=== PATIENT | male | born 1940 | race Caucasian/White ===

== ENCOUNTER 2023-08-06 16:21 | Outpatient (AMB) | payer MEDICARE, OTHER, SELFPAY ==
[2023-08-06 16:24] VITALS: BP 124/84; PULSE 69; O2SAT 95; BMI 31.3
--- NOTE | 2023-08-06 16:24 | HO.NEPHOV_ITS ---
Vital Signs 08/06/23 16:24 Height 4 ft 11 in Weight 155 lb 2 oz BMI 31.3 BP 124/84 Blood Pressure Location Lt brachial Position Sitting Pulse 69 Pulse Source Pulse Oximeter Pulse Oximetry (%) 95 Oxygen Delivery Method Room Air Intake Visit Reasons: CKD/ Confirmed Licensed Club Manager Required: No Accompanied by: Daughter Allergies felodipine [From Plendil] Allergy (Verified 08/06/23 16:27) Unknown HPI Comments Details: I had the privilege of seeing Shaniqua in follow-up of her very mild CKD, hyperparathyroidism and hypertension. She had some symptoms following COVID-19 booster vaccination 4th dose which has been resolved now. She remains on calcitriol which is keeping her PTH at goal. She does not have any nephrolithiasis, flank pain, hematuria. Her serum calcium has been normal. She had relapse of polymyalgia rheumatica and has seen her strapper who has restarted prednisone. She had sestamibi scan in the past which showed parathyroid adenoma for which she had seen endocrine surgeon. She feels improved. Her blood pressure has been at goal. Does not have any chest pain, shortness of breath, paroxysmal nocturnal dyspnea, orthopnea, pedal edema or orthostatic symptoms. She was accompanied by her daughter in the office today. [facility], [facility] Medical History (Updated 08/06/23 @ 17:03 by Jesse Mercado MD) Type 2 diabetes mellitus Seasonal allergic rhinitis Polymyalgia rheumatica Paresthesia of hand Osteopenia Obesity Iron deficiency anemia Hypothyroidism Hiatal hernia GERD (gastroesophageal reflux disease) Essential (primary) hypertension Dyslipidemia Depressive disorder Chronic kidney disease Anemia Surgical History (Updated 08/06/23 @ 16:31 by Drea Hutson MA) History of cataract surgery History of cholecystectomy Family History (Updated 08/04/23 @ 16:46 by Drea Hutson MA) Mother Cancer Maternal Aunt Cancer Maternal Uncle Cancer Social History (Updated 08/06/23 @ 16:30 by Drea Hutson MA) Alcohol intake: never Patient Tobacco Use Status: Never used Tobacco Physical Exam Vital Signs: Last Vital Signs Pulse 69 08/06/23 16:24 BP 124/84 08/06/23 16:24 Pulse Ox 95 08/06/23 16:24 Oxygen Delivery Method Room Air 08/06/23 16:24 BMI result Body Mass Index 31.3 Const General: comfortable and no acute distress Orientation/consciousness: patient oriented x3 HEENT Head: Yes normocephalic Mouth: Normal oral and palatal mucosa present Eyes EOM: EOMs intact bilaterally Neck Neck: Yes supple Resp Auscultation: clear to auscultation bilaterally Cardio Jugular venous distension: no JVD Rate: regular rate GI Palpation (GI): Soft to palpation Auscultation: normal bowel sounds General: Yes no CVA tenderness Back/Spine/Pelvis Back: no CVA tenderness Skin General skin exam: no rashes or lesions noted Neuro General: patient oriented x3 and moves all extremities Extrem General: Yes no pedal edema Results Reviewed Nephrology Results: No Data to Display Assessment & Plan Assessment & Plan (1) Essential (primary) hypertension: Code(s): I10 - Essential (primary) hypertension Category: Medical (2) Parathyroid adenoma: Code(s): D35.1 - Benign neoplasm of parathyroid gland Category: Medical Plan Her serum creatinine has been stable, last reading being 1. Her blood pressure is at goal. She is tolerating angiotensin receptor wolfgang. Her serum p otassium has been normal. Her serum calcium is within normal limits. Her PTH has been at goal. Sestamibi scan done in the past showed parathyroid adenoma. She had seen endocrine surgeon as well. She maintains good hydration. She avoids nonsteroidal anti-inflammatories. I did not make any medication changes today. All her and her daughter's questions were answered. Follow-up appointment given for next year. Orders: Orders Blood Urea Nitrogen Today D35.1 - Benign neoplasm of parathyroid gland, I10 - Essential (primary) hypertension Parathyroid Hormone Intact Today D35.1 - Benign neoplasm of parathyroid gland, I10 - Essential (primary) hypertension Creatinine Today D35.1 - Benign neoplasm of parathyroid gland, I10 - Essential (primary) hypertension Electrolytes Today D35.1 - Benign neoplasm of parathyroid gland, I10 - Essential (primary) hypertension Calcium Today D35.1 - Benign neoplasm of parathyroid gland, I10 - Essential (primary) hypertension Coding Level of Care Code Est Pt Level 4 (83574) Diagnoses Essential (primary) hypertension I10 Parathyroid adenoma D35.1
== END 2023-08-06 17:06 | disposition home or self-care (01) ==
PROVIDERS: PCP Internal Medicine; Visit Provider Internal Medicine Nephrology
DX: I10 Essential (primary) hypertension (principal); D35.1 Benign neoplasm of parathyroid gland
CPT/HCPCS: 99214

== ENCOUNTER → 2023-08-06 16:21 | Outpatient (BNVA) | payer MEDICARE, OTHER, SELFPAY | PROVIDERS: PCP Internal Medicine; Visit Provider Internal Medicine Nephrology | DX: I10 Essential (primary) hypertension (principal); D35.1 Benign neoplasm of parathyroid gland | CPT/HCPCS: 99212 ==

== ENCOUNTER 2024-06-02 10:40 | Outpatient (AMB) | payer MEDICARE, OTHER, SELFPAY ==
--- NOTE | 2024-06-02 10:45 | MHC.OFFVIS ---
Vital Signs 06/02/24 10:57 Height 4 ft 11 in Weight 155 lb BMI 31.3 BP 90/64 Blood Pressure Location Rt brachial Position Sitting Pulse 71 Pulse Source Pulse Oximeter Pulse Oximetry (%) 98 Oxygen Delivery Method Room Air Intake Visit Reasons: PMR Intake Note: Patient presents today for PMR. Also needs prednisone refill. Accompanied by: Daughter Allergies felodipine [From Plendil] Allergy (Verified 06/02/24 12:21) Unknown HPI HPI PMR: Details: Patient is accompanied with her daughter Marisa. At age 59 she had acute onset of fatigue, shoulder pain, upper back pain and neck pain with weakness and tightness in upper extremities. ESR 60-70 mm/hr. She could not recall if CRP was checked. No lower extremity symptoms. She denies GCA symptoms. She was started on prednisone 40mg daily by PCP as he was concerned for PMR. She remained on prednisone for a year and it was eventually tapered off. SHe has had 4 relapses with upper extremity symptoms and pain. She has continued to remain on long-term prednisone for at least 3 years. She is currently on prednisone 5 mg daily. When she reduces her prednisone to 3 mg daily she has increased fatigue, shoulder pain, arm pain, tightness in her arms and neck pain. Increasing prednisone back to 5 mg daily has better control of her symptoms. She is feeling exhausted all day. Pain in lower back after prolonged standing. She has intermittent pain/ache in shoulders radiating to arms. No neck pain. Middle of shoulder blade pain. No GCA symptoms. Left shoulder pain after fall in January 13/2024. She went to urgent care and had an x-ray performed. Patient reports that x-ray was normal. No PT was ordered for patient. When she had emergent pacemaker placed 03/2024, sHe tried to reduce prednisone to 4mg qd 1 week, 3mg qd 1 week then 2 days of 2mg qd but she had recurrence of symptoms of pain in upper extremities, neck and increased fatigue. Increasing prednisone back to 5 mg daily has enabled her to have better control of symptoms. She continues to have left shoulder pain with limited range of motion after fall. PT was supposed to be scheduled after pacemaker placement but it was not started. 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 PSx: pacemaker placement 03/2024. Cholesystectomy age 28. Cataract surgery. 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 Denies drinking alcohol, smoking, recreational drug use. No rheumatological family history. [facility] Medical History (Updated 06/02/24 @ 12:41 by Lucien Killian MD) Pacemaker Type 2 diabetes mellitus Seasonal allergic rhinitis Polymyalgia rheumatica Paresthesia of hand Osteopenia Obesity Iron deficiency anemia Hypothyroidism Hiatal hernia GERD (gastroesophageal reflux disease) Essential (primary) hypertension Dyslipidemia Depressive disorder Chronic kidney disease Anemia Surgical History History of cataract surgery History of cholecystectomy Family History Mother Cancer Maternal Aunt Cancer Maternal Uncle Cancer Social History Alcohol intake: never Patient Tobacco Use Status: Never used Tobacco Review of Systems Const All systems reviewed & are unremarkable except as noted in HPI and below Physical Exam Vital Signs: Last Vital Signs Pulse 71 06/02/24 10:57 BP 90/64 06/02/24 10:57 Pulse Ox 98 06/02/24 10:57 Oxygen Delivery Method Room Air 06/02/24 10:57 BMI result Body Mass Index 31.3 Const Other: General: Comfortable CVS: RRR Respiratory: clear to auscultation bilaterally. Good respiratory effort Skin: No lesions seen MSK: Patient is able to get up from seated position to standing position without using arms on armrest. Hip flexor power 5/5 bilateral. Tender to palpate left shoulder. Left shoulder active range of motion is 30 degrees. Passive range of motion is 160 degrees with limited internal and external rotation. Right shoulder range of motion is normal. No synovitis of any joint. Normal range of motion of hands and elbows. Limited external rotation of bilateral hips. Knee flexion 90 degrees of bilateral knees. Assessment & Plan Assessment & Plan (1) Polymyalgia rheumatica: Comment: Diagnosed at age 59. She has been on long-term prednisone 5 mg daily. PMR is controlled on prednisone 5 mg daily clinically. Left shoulder pain is a result of mild adhesive capsulitis. She has difficulty tapering less than prednisone 3 mg daily with recurrence of upper body pain and increased fatigue. I am concerned that she has adrenal insufficiency contributing to increased fatigue and feeling of unwell when she tapers prednisone to less than 3 mg daily. We discuss the increased risk of long-term side effects on prednisone. She has been able to have control of her symptoms on prednisone 4 mg daily. She is in agreement to try to continue to taper prednisone as she tolerates it with endocrinology evaluation for adrenal insufficiency. Code(s): M35.3 - Polymyalgia rheumatica Category: Medical Plan: Endocrinology consultation for evaluation and management of adrenal insufficiency ESR, CRP, vitamin-D, calcium ordered Bone density report from a year ago from [facility] requested. Patient reports she has osteopenia. She is not on a calcium or vitamin-D supplement. I will address osteopenia at a future visit. Continue prednisone 5 mg daily. After lab results are reviewed and if they are normal, I will reduce prednisone to 4 mg daily. PT ordered for patient to improve range of motion in upper extremities. She prefers to have PT near her home. Requisition given to patient I recommend discussing with PCP consider further workup of fatigue with sleep study for sleep apnea. Patient reports that her cousin has heard her snore. Return to clinic in 3 months (2) On prednisone therapy: Code(s): Z79.52 - care home (current) use of systemic steroids Category: Medical Plan: See above (3) Adhesive capsulitis of left shoulder: Code(s): M75.02 - Adhesive capsulitis of left shoulder Category: Medical Plan: PT ordered (4) Adrenal insufficiency: Code(s): E27.40 - Unspecified adrenocortical insufficiency Category: Medical Plan: Endocrine referral Orders: Orders Calcium Today Z79.52 - care home (current) use of systemic steroids PT Evaluation and Treatment Today M75.02 - Adhesive capsulitis of left shoulder Erythrocyte Sedimentation Rate Today Z79.899 - Other halfway (current) drug therapy Vitamin D 25-OH Total Today Z79.52 - termination clerk (current) use of systemic steroids C Reactive Protein Today Z79.899 - Other intermediate card tender (current) drug therapy Referrals Endocrinology Referral E27.40 - Unspecified adrenocortical insufficiency, Z79.52 - termination clerk (current) use of systemic steroids Coding Level of Care Code New Pt Level 4 (22558) Diagnoses Polymyalgia rheumatica M35.3 On prednisone therapy Z79.52 Adhesive capsulitis of left shoulder M75.02 Adrenal insufficiency E27.40
[2024-06-02 10:57] VITALS: BP 90/64; PULSE 71; O2SAT 98; BMI 31.3
--- OUTSIDE RECORDS SUMMARY | 2024-06-02 12:30 | XMS_ITS | Encounter Summary ---
Author Organization [employer] Address [address] [place] [address] Care Team Providers Care Systems Integration Analyst Name Role Phone Criss Davis MD Primary Care Provider Reason for Visit * Reason Onset Date Comments Carotid Ultrasound Results 05/12/2024 Encounter Details Date Type Department Care Team (Late st Contact Info) Description 05/12/2024 Telephone [facility] - [address] [place] [phone] Cee Sena NP [address] [place] [phone] Carotid Ultrasound Results Social History Tobacco Use Types Packs/Day Years Used Date Smoking Tobacco: Former Cigarettes Smokeless Tobacco: Never Comments:Quit 1960 Alcohol Use Standard Drinks/Week Comments Not Currently 0 (1 standard drink = 0.6 oz pur e alcohol) Comments Unknown Sex and Gender Information Value Date Recorded Sex Assigned at Female 03/29/2024 2:45 PM EST Legal Sex Female 7:41 AM EST Gender Identity Female 03/29/2024 2:45 PM EST Sexual Orientation Straight 03/29/2024 2: 45 PM EST documented as of this encounter Progress Notes * Meri Gallo RN - 05/12/2024 3:14 PM EST I reviewed AMBER response regarding carotid us results Good afternoon Shaniqua, I have reviewed the results from your recent carotid ultrasound and there were no concerning findings. Please continue on your current medications. Feel free to reach out to our office should you have any further questions. Best, She had no further questions. She also stated she does not have my chart and prefers to be called .She declined being signed up for My Chart. * Marthalottie Jalloh - 05/12/2024 11:57 AM EST Patient called and she would like to speak to someone regarding her ultrasound results from 05/05/24. Please give her a call back at [phone]. documented in this encounter Plan of Treatment Upcoming Encounters Date Type Department Care Team (Late st Contact Info) Description 07/06/2024 3:30 PM EDT Ancillary Procedure [facility] - [address] [place] [address] 11/09/2024 2:40 PM EDT Office Visit [facility] - [address] [place] [address] Cee Sena NP [address] [place] [address] 04/25/2025 4:00 PM EST Ancillary Procedure [facility] - [address] [place] [address] documented as of this encounter Visit Diagnoses Not on filedocumented in this encounter Care Teams Systems Integration Analyst Relationship Specialty Start Date End Date Criss Davis MD [address] [place] [phone] PCP - General Internal Medicine 03/29/24 documented as of this encounter
--- OUTSIDE RECORDS SUMMARY | 2024-06-02 12:31 | XMS_ITS | Clinical Summary ---
Author Organization [facility] Address [address] [place] [address] Phone Care Team Providers Care Patient Accounts Manager Name Role Phone Criss Davis MD Primary Care Provider Allergies Active Allergy Reactions Criticality Noted Date Comments Felodipine Numbness 03/29/2024 Medications predniSONE (DELTASONE) 1 mg tablet Take 5 tablets (5 mg total) by mouth 1 (one) time each day. Active losartan (COZAAR) 50 mg tablet Take 1 tablet (50 mg total) by mouth 1 (one) time each day. 2 Active Synthroid 88 mcg tablet Take 1 tablet (88 mcg total) by mouth 1 (one) time each day before breakfast. 2 Active calcitrioL (ROCALTROL) 0.25 mcg capsule Take 1 capsule (0.25 mcg total) by mouth 4 (four) times a week. 2 Active ferrous sulfate 325 mg (65 mg elemental iron) tablet Take 1 tablet (325 mg total) by mouth 1 (one) time each day with breakfast. Active propylene glycol/peg 400/PF (SYSTANE, PF, OPHT) Administer into affected eye(s). 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 First device check performed during office visit by device clinic today revealing normal device function. She will continue to follow with our device clinic remotely and in office per their recommendation. Orders: Transthoracic echocardiogram (TTE) complete with PRN contrast, bubble, strain, and 3D order panel; Future perflutren lipid microsphere (DEFINITY) 1.3 mL in sodium chloride 0.9% 8.[address] Angio Heart w 3D Imaging/Function; Future Encounters Date Type Department Care Team Description 05/12/2024 Telephone [facility] - [address] [place] [address] Cee Sena NP Carotid Ultrasound Results 05/05/2024 12:30 PM EST Ancillary Procedure [facility] - [address] [place] [address] Visual disturbance; Weakness; Pre-syncope 05/05/2024 Telephone [facility] - [address] [place] [address] Cee Sena NP Appointment (Coronary CTA) 04/25/2024 2:00 PM EST Ancillary Procedure [facility] - [address] [place] [address] Encounter for adjustment or management of cardiac device 04/25/2024 12:40 PM EST [facility] [address] [place] [address] Cee Sena NP CHB (complete heart block) (CMS/HCC) (Primary Dx); Chest pain, unspecified type; Visual disturbance; Weakness; Pre-syncope; Weakness acquired in ICU 04/22/2024 2:50 PM EST Ancillary Procedure [facility] - [address] [place] [phone] 04/18/2024 Telephone [facility] - [address] [place] [address] Cee Sena NP not feeling well (Weak ) 03/30/2024 3:36 PM EST Anesthesia Event [facility] [address] [place] [phone] Brett Carrizales MD 03/30/2024 1:15 PM EST - 03/30/2024 3:15 PM EST Surgery [facility] [address] [place] [phone] Uriel Kulkarni MD Insert PPM dual chamber 03/29/2024 12:54 PM EST - 03/31/2024 2:46 PM EST Hospital Encounter [facility] Intermediate Care Unit [address] [place] [address] Diego Rivas, Suzi Russo MD Zipagan, James T, MD Rasul, Yar M, MD Surendran, Anupama, MD Bradycardia (Primary Dx); Elevated TSH; CHB (complete heart block) ([facility]) Discharge Disposition: Home or Self Care from Last 3 Months Surgical History Surgery Date Site/Laterality Comments CHOLECYSTECTOMY CATARACT EXTRACTION REFRACTIVE SURGERY Left DILATION AND CURETTAGE OF UTERUS Medical History Medical History Date Comments Hypertension Hyperlipidemia CKD (chronic kidney disease) stage 3, GFR 30-59 ml/min ([facility]) Parathyroid adenoma PMR (polymyalgia rheumatica) ([facility]) Diabetes mellitus ([facility]) diet controlled Hypothyroid Social History Tobacco Use Types Packs/Day Years Used Date Smoking Tobacco: Former Cigarettes Smokeless Tobacco: Never Tobacco Cessation:Counseling Given: Not Answered Comments:Quit 1960 Alcohol Use Standard Drinks/Week Comments Not Currently 0 (1 standard drink = 0.6 oz pur e alcohol) Comments Unknown Sex and Gender Information Value Date Recorded Sex Assigned at Female 03/29/2024 2:45 PM EST Legal Sex Female 7:41 AM EST Gender Identity Female 03/29/2024 2:45 PM EST Sexual Orientation Straight 03/29/2024 2: 45 PM EST Obstetrics History Last Filed Vital Signs Vital Sign Reading Time Taken Comments Blood Pressure 146/64 04/25/2024 12:51 PM EST Pulse 77 04/25/2024 12:51 PM EST Temperature 36.9 ??C (98.4 ??F) 03/31/2024 10:[address] Respiratory Rate 16 03/31/2024 10:44 AM EST Oxygen Saturation 97% 04/25/2024 12:51 PM EST Inhaled Oxygen Concentration - - Weight 68.9 kg (152 lb) 04/25/2024 12:51 PM EST Height 149.9 cm (4' 11 ) 04/25/2024 12:51 PM EST Body Mass Index 30.7 04/25/2024 12:51 PM EST Plan of Treatment Upcoming Encounters Date Type Department Care Team (Late st Contact Info) Description 07/06/2024 3:30 PM EDT Ancillary Procedure [facility] - [address] [place] [address] 11/09/2024 2:40 PM EDT Office Visit [facility] - [address] [place] [address] Cee Sena, ANANYA [address] [place] [phone] 04/25/2025 4:00 PM EST Ancillary Procedure [facility] - [address] [place] [phone] Health Maintenance Due Date Last Done Comments Diabetes: Annual Foot Exam 01/23/1950 Diabetes: Annual Retina Eye Exam 01/23/1950 Zoster Vaccines (1 of 2) 01/23/1988 RSV Immunization Patients 60+ Years Old (1 - 1-dose 75+ series) 2013 COVID-19 Vaccine ( season) 2023 01/13/2022, 08/22/2021, 12/11/2020, Additional history exists Cholesterol Screening (Lipid Panel) 03/29/2024 Depression Screening 03/29/2024 Medicare Annual Wellness Visit 03/29/2024 Osteoporosis Screening (Bone Density Screening) 03/29/2024 Social Influencers of Health Screening 03/29/2024 Diabetes: Blood Sugar Control Test (HGBA1C) 09/26/2024 03/29/2024 Falls Risk Assessment 03/31/2025 03/31/2024 Hypertension/CHF/CAD Annual BMP Blood Test 03/31/2025 03/31/2024, 03/30/2024, 03/29/2024 DTaP,Tdap,and Td Vaccines (2 - Td or Tdap) 09/19/2026 09/19/2016 Pneumococcal Vaccine: 50+ Years Completed 09/19/2016, 08/27/2015 Influenza Vaccine Completed 11/12/2023, , 11/22/2021, Additional history exists HIB Vaccines Aged Out No longer eligi ble based on patient's age to complete this topic HPV Vaccines Aged Out No longer eligi ble based on patient's age to complete this topic Hepatitis A Vaccines Aged Out No long er eligible based on patient's age to complete this topic Hepatitis B Vaccines Aged Out No long er eligible based on patient's age to complete this topic IPV Vaccines Aged Out No longer eligi ble based on patient's age to complete this topic MMR Vaccines Aged Out No longer eligi ble based on patient's age to complete this topic Meningococcal ACWY Vaccine Aged Out N o longer eligible based on patient's age to complete this topic Meningococcal B Vacine Aged Out No lo nger eligible based on patient's age to complete this topic RSV Immunization Patients Under 20 months Aged Out No longer eligible based on patient's age to complete this topic Varicella Vaccines Aged Out No longer eligible based on patient's age to complete this topic Medical Devices Implanted Type Area Hauling Contractor Device Identifier Shelf Expiration Date Model / Serial / Lot Lead Pcmk Tendril Sts [id number] - [id number] - [id number] Implanted:Qty: 1 on 03/30/2024 by Uriel Kulkarni MD at [facility] Cardiac Lead N/A: Heart [facility] [employer] [id number] 12/13/2026 2088TC/58 / [id number] / Lead Pcmk Tendril Sts [id number] - [id number] - [id number] Implanted:Qty: 1 on 03/30/2024 by Uriel Kulkarni MD at [facility] Cardiac Lead N/A: Heart [facility] [employer] [id number] 01/13/2027 2088TC/52 / [id number] / Pcmkr Assurity Mri Dr-Rf Dual - [id number] - [id number] Implanted:Qty: 1 on 03/30/2024 by Uriel Kulkarni MD at [facility] Cardiac Pacemaker Left: Chest Wall [facility] [employer] [employer] [id number] 07/13/2025 [id number] / [id number] / Abbt-Stju 2272 Assurity Mri(Tm) [id number] Implanted:03/16 by Uriel Kulkarni MD (Quantity not on file) Cardiac Pacemaker Left: Chest [facility] 2272 ASSURITY MRI(TM) / [id number] / Abbt-Stju Assurity Mri [id number] Implanted:03/16 (Quantity not on file) Cardiac Pacemaker [facility] ASSURITY MRI 2272 / [id number] / Hemostat Absorb 1x2 Surgicel Fibrillar - [id number] Implanted:Qty: 1 on 03/30/2024 by Uriel Kulkarni MD at [facility] Hemostasis Left: Chest Wall [employer] [id number] 12/13/2025 1961 / / [id number] Procedures Procedure Name Priority Date/Time Associated Diagnosis Comments VAS US DUPLEX CAROTID BILATERAL Routine 05/05/2024 1:00 PM EST Visual disturbance Weakness Pre-syncope CARDIAC DEVICE CHECK- IN CLINIC- [facility] Routine 04/25/2024 1:35 PM EST Encounter for adjustment or management of cardiac device CARDIAC DEVICE CHECK- REMOTE- [facility] Routine 04/22/2024 2:49 PM EST BASIC METABOLIC PANEL STAT 03/31/2024 8:59 AM EST XR CHEST 2 VIEWS Routine 03/31/2024 8:41 AM EST INSERT PPM DUAL Routine 03/30/2024 6:13 PM EST CHB (complete heart block) (CMS/HCC) CBC WITH AUTO DIFFERENTIAL Routine 03/30/2024 6:02 AM EST BORRELIA BURGDORFERI ANTIBODY Routine 03/30/2024 6:02 AM EST MAGNESIUM Routine 03/30/2024 6:02 AM EST CBC AND DIFFERENTIAL Routine 03/30/2024 6:02 AM EST BASIC METABOLIC PANEL Routine 03/30/2024 6:02 AM EST ECG 12-LEAD Routine 03/29/2024 10:46 PM EST HC INSERTION/REMOVAL/REPLA CEMENT CATH Routine 03/29/2024 9:28 PM EST NC INSERTION NON-TUNNELED CENTRALLY INSERTED CENTRAL VENOUS CATH 5 YRS/> Routine 03/29/2024 9:28 PM EST XR CHEST 1 VIEW Routine 03/29/2024 9:19 PM EST BORRELIA BURGDORFERI ANTIBODY STAT 03/29/2024 1:55 PM EST TROPONIN I HIGH SENSITIVITY STAT 03/29/2024 1:55 PM EST ECG 12-LEAD STAT 03/29/2024 1:54 PM EST XR CHEST 1 VIEW STAT 03/29/2024 1:10 PM EST HEMOGLOBIN A1C Add-On 03/29/2024 12:41 PM EST TRIIODOTHYRONINE FREE STAT 03/29/2024 12:41 PM EST FREE THYROXINE WITH REFLEX TO FREE TRIIODOTHYRONINE STAT 03/29/2024 12:41 PM EST THYROID STIMULATING HORMONE WITH REFLEX TO FREE T4 AND FREE T3 STAT Add-on 03/29/2024 12:41 PM EST CBC WITH AUTO DIFFERENTIAL STAT 03/29/2024 12:41 PM EST B-TYPE NATRIURETIC PEPTIDE STAT 03/29/2024 12:41 PM EST MAGNESIUM STAT 03/29/2024 12:41 PM EST LIPASE STAT 03/29/2024 12:41 PM EST COMPREHENSIVE METABOLIC PANEL STAT 03/29/2024 12:41 PM EST CBC AND DIFFERENTIAL STAT 03/29/2024 12:41 PM EST TROPONIN I HIGH SENSITIVITY STAT 03/29/2024 12:41 PM EST ECG 12-LEAD STAT 03/29/2024 12:37 PM EST NC CRITICAL CARE 30-74 MINUTES Routine 03/29/2024 11:35 AM EST ECG ANNOTATED 03/29/2024 ECG ANNOTATED 03/29/2024 from Last 3 Months Results * Vascular US duplex carotid bilateral (05/05/2024 1:00 PM EST) Left CCA dist yuen 16 cm/s CV VAS LAB Left CCA dist sys 69 cm/s CV VAS LAB LEFT COMMON CAROTID ARTERY MID D 10 cm/s CV VAS LAB LEFT COMMON CAROTID ARTERY MID S 60 cm/s CV VAS LAB Left CCA prox yuen 8 cm/s CV VAS LAB Left CCA prox sys 60 cm/s CV VAS LAB LEFT EXTERNAL CAROTID ARTERY D 8 cm/s CV VAS LAB Left ECA sys 64 cm/s CV VAS LAB Left ICA/CCA sys 0.90 no units CV VAS LAB Left ICA dist yuen 18 cm/s CV VAS LAB Left ICA dist sys 63 cm/s CV VAS LAB Left ICA mid yuen 15 cm/s CV VAS LAB Left ICA mid sys 55 cm/s CV VAS LAB Left ICA prox yuen 13 cm/s CV VAS LAB Left ICA prox sys 63 cm/s CV VAS LAB Left vertebral sys 39 cm/s CV VAS LAB Right CCA dist yuen 15 cm/s CV VAS LAB Right cca dist sys 82 cm/s CV VAS LAB RIGHT COMMON CAROTID ARTERY MID D 12 cm/s CV VAS LAB RIGHT COMMON CAROTID ARTERY MID S 92 cm/s CV VAS LAB Right CCA prox yuen 10 cm/s CV VAS LAB Right CCA prox sys 82 cm/s CV VAS LAB RIGHT EXTERNAL CAROTID ARTERY D 6 cm/s CV VAS LAB Right eca sys 109 cm/s CV VAS LAB Right ICA/CCA sys 1.30 no units CV VAS LAB Right ICA dist yuen 26 cm/s CV VAS LAB Right ICA dist sys 101 cm/s CV VAS LAB Right ICA mid yuen 16 cm/s CV VAS LAB Right ICA mid sys 78 cm/s CV VAS LAB Right ICA prox yuen 25 cm/s CV VAS LAB Right ICA prox sys 108 cm/s CV VAS LAB Right vertebral sys 33 cm/s CV VAS LAB Left Prox Subclavian PSV 141 cm/s CV VAS LAB Right Prox Subclavian PSV 164 cm/s CV VAS LAB Right arm BP 136 mmHg CV VAS LAB Left arm BP 148 mmHg CV VAS LAB Anatomical Region Laterality Modality Vascular, Abdomen Ultrasound Narrative 05/07/2024 8:30 AM EST ?Right proximal ICA: There is minimal heterogeneous plaque. ?Left proximal ICA: There is minimal heterogeneous plaque. RIGHT. 1. There is minimal atherosclerotic plaque in the right carotid system as noted above. 2. There is a < 50% stenosis in the right internal carotid artery based on Doppler velocity. 3. The subclavian artery has normal Doppler flow velocity. 4. The vertebral artery has normal Doppler flow patterns with antegrade ?? flow. LEFT. 1. There is minimal atherosclerotic plaque in the left carotid system as noted above. 2. There is a < 50% stenosis in the left internal carotid artery based on Doppler velocity. 3. The subclavian artery has normal Doppler flow velocity. 4. The vertebral artery has normal Doppler flow patterns with antegrade ?? flow. Interpretation was done according to the [place] Symptomatic Carotid Endarterectomy Trial (NASCET) criteria ??and the Consensus Panel Grayscale and Doppler Ultrasound criteria for diagnosis of internal carotid artery stenosis. ??Please note that there are no clear criteria validated for the common carotid artery stenosis. Right Carotid The CCA is tortuous. The CCA has no significant plaque. The ICA has minimal heterogeneous plaque. The ECA has no significant plaque. Vertebral flow is antegrade. Left Carotid The CCA has no significant plaque. The ICA has minimal heterogeneous plaque. The ECA has heterogeneous plaque. Chief Operator Lock Tender Details A solorio scale, color and doppler analysis ultrasound was performed. During the study longitudinal and transverse views were obtained. Pulsed wave doppler was performed. us Cee Sena NP CV VASCULAR PROCEDURES Final Result * CARDIAC DEVICE CHECK- IN CLINIC- [facility] (04/25/2024 1:35 PM EST) Date Time Interrogation Session [id number] CV DEVICE CHECK Implantable Pulse Generator [employer] CV DEVICE CHECK Implantable Pulse Generator Type IPG CV DEVICE CHECK Implantable Pulse Generator Model Assurity MRI 2272 CV DEVICE CHECK Implantable Pulse Generator Serial Number [id number] CV DEVICE CHECK Implantable Pulse Generator Implant Date 20240330 CV DEVICE CHECK Battery Voltage 2.990 CV D EVICE CHECK Battery Status Beginning of Service CV DEVICE CHECK Nimesh Statistic RA Percent Paced 66.00 CV DEVICE CHECK Nimesh Statistic RV Percent Paced 99.98 CV DEVICE CHECK Lead Channel Sensing Intrinsic Amplitude 5.000 CV DEVICE CHECK Lead Channel Impedance Value 480 CV DEVICE CHECK Lead Channel Pacing Threshold Amplitude 0.500 CV DEVICE CHECK Lead Channel Pacing Threshold Pulse Width 0.4 CV DEVICE CHECK Lead Channel RA Pacing Threshold Date 2024-04-25 CV DEVICE CHECK Lead Channel Setting Pacing Amplitude 2.000 CV DEVICE CHECK Lead Channel Setting Pacing Pulse Width 0.4 CV DEVICE CHECK Lead Channel Sensing Intrinsic Amplitude 9.600 CV DEVICE CHECK Lead Channel Impedance Value 300 CV DEVICE CHECK Lead Channel Pacing Threshold Amplitude 0.750 CV DEVICE CHECK Lead Channel Pacing Threshold Pulse Width 0.4 CV DEVICE CHECK Lead Channel RV Pacing Threshold Date 2024-04-25 CV DEVICE CHECK Lead Channel Setting Pacing Amplitude 1.000 CV DEVICE CHECK Lead Channel Setting Pacing Pulse Width 0.4 CV DEVICE CHECK Nimesh Setting Mode (NBG Code) DDD CV DEVICE CHECK Nimesh Setting Lower Rate Limit 60 CV DEVICE CHECK Nimesh Setting AT Mode Switch Rate 180 CV DEVICE CHECK Nimesh Setting Maximum Tracking Rate 120 CV DEVICE CHECK Nimesh Setting Maximum Sensor Rate 120 CV DEVICE CHECK Nimesh Setting PAV Delay 200 CV DEVICE CHECK Nimesh Setting LEONIDES Delay 150 CV DEVICE CHECK Date of Service 2025-04-20 CV DEVICE CHECK Anatomical Region Laterality Modality Device Interroga tion 04/25/2024 Impressions 04/27/2024 11:35 AM EST Normal In-Office: No Events * Normal Device Function * Alerts or events: None * Battery: FACUNDO, 9.70 yrs * Sensing, impedance and thresholds reviewed and tested * Presenting Rhythm: - LEAD SOFTWARE TEST ENGINEER 60's * Underlying Rhythm: - VS 60's (long A-V delay) * Heart Rate Histograms reviewed * Pacing and Detection Parameters were evaluated * Implant site CDI; no redness, drg or edema noted. Incision well- approximated/pink * Device Remote agreement signed Narrative Procedure Note Uriel Kulkarni MD - 04/27/2024 IMPRESSION: Normal In-Office: No Events * Normal Device Function * Alerts or events: None * Battery: FACUNDO, 9.70 yrs * Sensing, impedance and thresholds reviewed and tested * Presenting Rhythm: - LEAD SOFTWARE TEST ENGINEER 60's * Underlying Rhythm: - VS 60's (long A-V delay) * Heart Rate Histograms reviewed * Pacing and Detection Parameters were evaluated * Implant site CDI; no redness, drg or edema noted. Incisionwell- approximated/pink * Device Remote agreement signed us Order Referral Cardiovascular CV IMPLANTABLE CAR DIAC DEVICE PROCEDURES Final Result * Cardiac device check - Remote- [facility] (04/22/2024 2:49 PM EST) Date Time Interrogation Session [id number] CV DEVICE CHECK Type Interrogation Session Remote Patient Initiated CV DEVICE CHECK Implantable Pulse Generator [employer] CV DEVICE CHECK Implantable Pulse Generator Type IPG CV DEVICE CHECK Implantable Pulse Generator Model 2272 Assurity MRI(TM) CV DEVICE CHECK Implantable Pulse Generator Serial Number [id number] CV DEVICE CHECK Implantable Pulse Generator Implant Date 20240330 CV DEVICE CHECK Battery Remaining Percentage 95.50 CV DEVICE CHECK Battery Remaining Longevity 65.0 CV DEVICE CHECK Battery Voltage 3.010 CV D EVICE CHECK Battery NURSE SEXUAL ASSAULT Trigger 2.600 CV DEVICE CHECK Battery Status Middle of Service CV DEVICE CHECK Nimesh Statistic RA Percent Paced 68.00 CV DEVICE CHECK Nimesh Statistic RV Percent Paced 99.00 CV DEVICE CHECK Atrial Tachy Statistic AT/AF [place] Percent 0.00 CV DEVICE CHECK Lead Channel Sensing Intrinsic Amplitude 5.000 CV DEVICE CHECK Lead Channel Setting Sensing Sensitivity 0.50 CV DEVICE CHECK Lead Channel Impedance Value 490 CV DEVICE CHECK Lead Channel Pacing Threshold Amplitude 0.750 CV DEVICE CHECK Lead Channel Pacing Threshold Pulse Width 0.4 CV DEVICE CHECK Lead Channel RA Pacing Threshold Date 2024-04-19 CV DEVICE CHECK Lead Channel Setting Pacing Amplitude 3.000 CV DEVICE CHECK Lead Channel Setting Pacing Pulse Width 0.4 CV DEVICE CHECK Lead Channel Setting Sensing Sensitivity 2.00 CV DEVICE CHECK Lead Channel Impedance Value 300 CV DEVICE CHECK Lead Channel Setting Pacing Amplitude 3.000 CV DEVICE CHECK Lead Channel Setting Pacing Pulse Width 0.4 CV DEVICE CHECK Nimesh Setting Mode (NBG Code) DDD CV DEVICE CHECK Nimesh Setting Lower Rate Limit 60 CV DEVICE CHECK Nimesh Setting AT Mode Switch Rate 180 CV DEVICE CHECK Nimesh Setting Maximum Tracking Rate 120 CV DEVICE CHECK Nimesh Setting Maximum Sensor Rate 120 CV DEVICE CHECK Nimesh Setting PAV Delay 200 CV DEVICE CHECK Nimesh Setting LEONIDES Delay 150 CV DEVICE CHECK Date of Service 2024-07-17 CV DEVICE CHECK Anatomical Region Laterality Modality Device Interroga tion 04/19/2024 11:2 8 AM EST Impressions 04/22/2024 2:45 PM EST Normal Remote: No Events Provider Request * Normal Device Function * Alerts or events: None * Battery: Battery is at 95.5%, 5.42 yrs * Sensing, impedance and thresholds reviewed * Programmed parameters reviewed * Presenting rhythm reviewed * Heart Rate Histograms reviewed * No significant changes noted Narrative Procedure Note Rosy Cat, PHOTO EQUIPMENT TECHNICIAN - 04/22/2024 IMPRESSION: Normal Remote: No Events Provider Request * Normal Device Function * Alerts or events: None * Battery: Battery is at 95.5%, 5.42 yrs * Sensing, impedance and thresholds reviewed * Programmed parameters reviewed * Presenting rhythm reviewed * Heart Rate Histograms reviewed * No significant changes noted Rosy Cat NP CV IMPLANTABLE CARDIAC DEVIC E PROCEDURES Final Result * (ABNORMAL) Basic metabolic panel (03/31/2024 8:59 AM EST) Only the most recent of2 resultswithin the time period is included. Sodium 137 133 - 145 mmol/L LAB CHEMISTRY METHOD 03/31/2024 9:35 AM [facility] Potassium 4.5 3.5 - 5.5 mmol/L LAB CHEMISTRY METHOD 03/31/2024 9:35 AM [facility] Comment:Hemolysis present Chloride 107 96 - 110 mmol/L LAB CHEMISTRY METHOD 03/31/2024 9:35 AM [facility] CO2 25 21 - 32 mmol/L LAB CHEMISTRY METHOD 03/31/2024 9:35 AM [facility] Anion Gap 5 3 - 11 LAB CHEMISTRY METHOD 03/31/2024 9:35 AM [facility] Glucose 156(H) 70 - 100 mg/dL LAB CHEMISTRY METHOD 03/31/2024 9:35 AM [facility] BUN 19 5 - 25 mg/dL LAB CHEMISTRY METHOD 03/31/2024 9:35 AM [facility] Creatinine 1.44(H) 0.50 - 1.10 mg/dL LAB CHEMISTRY METHOD 03/31/2024 9:35 AM [facility] eGFR 35(L) >=60 mL/min/1. 73m2 LAB CHEMISTRY METHOD 03/31/2024 9:35 AM [facility] Comment:Calculation based on the??Chronic Kidney Disease Epidemiology Collaboration (CKD-EPI) equation refit??without adjustment for race. BUN/Creatinine Ratio 13.2 LAB CHEMISTRY METHOD 03/31/2024 9:35 AM [facility] Calcium 9.7 8.5 - 10.5 mg/dL LAB CHEMISTRY METHOD 03/31/2024 9:35 AM [facility] Blood Venous blood specimen / Unknown Venipuncture / Unknown 03/31/2024 8:59 AM EST 03/31/2024 9:06 AM EST Nila Valle MD LAB BLOOD ORDERABLES Final Result [facility] [address] [place] [address], [place] [phone] * XR Chest 2 Views (03/31/2024 8:41 AM EST) Anatomical Region Laterality Modality Body Radiographic Allie ging 03/31/2024 8:43 AM EST Impressions 03/31/2024 8:44 AM EST No acute findings. -------- FINAL REPORT -------- Dictated By: Dameon Amanda Dictated Date: 03/31/2024 08:43 ET Assigned Physician: Dameon Amanda Reviewed and Electronically Signed By: Dameon Amanda Signed Date: 03/31/2024 08:44 ET Workstation ID: [id number] Transcribed By: Self Edit Transcribed Date: 03/31/2024 08:43 ET Narrative 03/31/2024 8:44 AM EST PROCEDURE: PA and lateral radiographs of the chest. HISTORY: postoperative care. pacer lead placement, R/o pneumo. COMPARISON: 03/29/2024. FINDINGS: Linear markings at the left base, suggestive of atelectasis. ??Left-sided pacemaker generator with right atrial and right ventricular leads. ??No pneumothorax or pleural effusion. ??Moderate hiatal hernia. ??Atherosclerotic calcification of the aorta. ??Surgical clips in the right upper quadrant of the abdomen. Procedure Note Dameon Amanda MD - 03/31/2024 PROCEDURE: PA and lateral radiographs of the chest. HISTORY: postoperative care. pacer lead placement, R/o pneumo. COMPARISON: 03/29/2024. FINDINGS: Linear markings at the left base, suggestive of atelectasis. Left-sidedpacemaker generator with right atrial and right ventricular leads. Nopneumothorax or pleural effusion. Moderate hiatal hernia.Atherosclerotic calcification of the aorta. Surgical clips in the rightupper quadrant of the abdomen. IMPRESSION: No acute findings. -------- FINAL REPORT -------- Dictated By: Dameon Amanda Dictated Date: 03/31/2024 08:43 ET Assigned Physician: Dameon Amanda Reviewed and Electronically Signed By: Dameon Amanda Signed Date: 03/31/2024 08:44 ET Workstation ID: [id number] Transcribed By: Self Edit Transcribed Date: 03/31/2024 08:43 ET us Criss Thompson PHOTO EQUIPMENT TECHNICIAN IMG XR PROCEDURES Final Re sult * INSERT PPM DUAL (03/30/2024 6:13 PM EST) Anatomical Region Laterality Modality X-Ray Angiograph y Narrative 04/09/2024 11:10 PM EST Impression Insertion of a new pacemaker with transvenous electrode atrial and ventricular. ??This is a left bundle area pacemaker. Conscious sedation Venography of the extremity to view subclavian vein and injection Follow-Up [facility] Cardiology Device Clinic Study Details Procedure Note Procedure Insertion of a new pacemaker with transvenous electrode atrial and ventricular. This is a left bundle area pacemaker. Conscious sedation Venography of the extremity to view subclavian vein and injection Indication 84-year-old female with a past medical history of mild chronic kidney disease, hypertension admitted initially with 2-1 block which progressed to complete heart block. She had a temporary pacemaker placed in her right internal jugular vein. She is virtually pacer dependent with a very slow ventricular escape rhythm. Plan is for a dual-chamber pacemaker, left bundle area pacer. No significant secondary cause that is reversible identified. Description Patient was brought to the EP lab in a fasting state. She was consented prior to the procedure. Initially we did a venography of the left upper extremity to view subclavian vein and injection. I used a modified Seldinger technique and placed a wire through the left axillary vein, through the left subclavian vein, to the right atrium. I then made an incision and made the wire flush the underlying pectoral muscle. I used a 6 Iraqi sheath and double wired for 2 wire access. I then used a 8 Iraqi sheath and then a external hook sheath and placed an RV pacing lead in the RV septal region. I initially used a larger curve which I switched to a smaller curve on the extended hook sheath. I was able to deploy the active-fixation screw into the septum and twisted the lead into the septum. I noted the good impedances, thresholds, and sensing. I had a reasonable left bundle area morphology with a QRS width of 120 ms and a LVAD of 70 ms. I then used a slit her and I removed the extended hook sheath. I remove the 9 Iraqi sheath and I sutured the lead down to the underlying pectoral muscle. I then placed a 6 Iraqi sheath over the other remaining wire. I placed an endocardial pacing lead in the right atrial appendage. After confirming good sensing, thresholds, and impedances I then removed the 6 Iraqi sheath. I sutured the lead down to the underlying pectoral muscle. I then connected the dual chamber pacemaker generator to the 2 leads. I placed device in the pocket after giving lidocaine. I placed fibrillar for additional hemostasis purposes. I did tie a Vicryl suture around the exit site for additional hemostasis purposes. I closed incision with a 2-0 Vicryl followed by 3-0 Vicryl. Dermabond glue was placed over the incision. Tegaderm dressing was placed over the incision. Device is an Her dual-chamber pacemaker. Model number is [id number]. Serial number is [id number]. Right atrial lead is a model #2088 TC/52. Serial number is E [id number]. RV lead is a model #2088 TC/58. Serial number is [id number]. Atrial threshold is 1 V at 0.4 ms. Impedance is 500 and the ohms. Sensing is 4.8 mV. RV threshold is 0.5 V at 0.4 ms. Impedance is 360 ohms unipolar. No R waves were noted. Started the procedure was 430. End time was 530. Patient received 2-1/2 mg of Versed and 50 mcg of fentanyl. Please see nursing flowsheet for full details of the hemodynamics during the procedure. Impression Insertion of a new pacemaker with transvenous electrode atrial and ventricular. This is a left bundle area pacemaker. Conscious sedation Venography of the extremity to view subclavian vein and injection Follow-Up [facility] Cardiology Device Clinic Procedure Details Description Patient was brought to the EP lab in a fasting state. She was consented prior to the procedure. Initially we did a venography of the left upper extremity to view subclavian vein and injection. I used a modified Seldinger technique and placed a wire through the left axillary vein, through the left subclavian vein, to the right atrium. I then made an incision and made the wire flush the underlying pectoral muscle. I used a 6 Iraqi sheath and double wired for 2 wire access. I then used a 8 Iraqi sheath and then a external hook sheath and placed an RV pacing lead in the RV septal region. I initially used a larger curve which I switched to a smaller curve on the extended hook sheath. I was able to deploy the active-fixation screw into the septum and twisted the lead into the septum. I noted the good impedances, thresholds, and sensing. I had a reasonable left bundle area morphology with a QRS width of 120 ms and a LVAD of 70 ms. I then used a slit her and I removed the extended hook sheath. I remove the 9 Iraqi sheath and I sutured the lead down to the underlying pectoral muscle. I then placed a 6 Iraqi sheath over the other remaining wire. I placed an endocardial pacing lead in the right atrial appendage. After confirming good sensing, thresholds, and impedances I then removed the 6 Iraqi sheath. I sutured the lead down to the underlying pectoral muscle. I then connected the dual chamber pacemaker generator to the 2 leads. I placed device in the pocket after giving lidocaine. I placed fibrillar for additional hemostasis purposes. I did tie a Vicryl suture around the exit site for additional hemostasis purposes. I closed incision with a 2-0 Vicryl followed by 3-0 Vicryl. Dermabond glue was placed over the incision. Tegaderm dressing was placed over the incision. Device is an Her dual-chamber pacemaker. Model number is PM [id number]. Serial number is [id number]. Right atrial lead is a model #2088 TC/52. Serial number is E [id number]. RV lead is a model #2088 TC/58. Serial number is [id number]. Atrial threshold is 1 V at 0.4 ms. Impedance is 500 and the ohms. Sensing is 4.8 mV. RV threshold is 0.5 V at 0.4 ms. Impedance is 360 ohms unipolar. No R waves were noted. Started the procedure was 430. End time was 530. Patient received 2-1/2 mg of Versed and 50 mcg of fentanyl. Please see nursing flowsheet for full details of the hemodynamics during the procedure. us Criss Thompson PHOTO EQUIPMENT TECHNICIAN CV ELECTROPHYSIOLOGY ALYSSA PALMAMITA Final Result * (ABNORMAL) CBC auto differential (03/30/2024 6:02 AM EST) Only the most recent of2 resultswithin the time period is included. WBC 13.8(H) 4.8 - 10.8 K/mcL LAB HEMETOLOGY METHOD 03/30/2024 7:26 AM [facility] RBC 3.70(L) 3.80 - 4.80 M/mcL LAB HEMETOLOGY METHOD 03/30/2024 7:26 AM [facility] Hemoglobin 12.0 11.5 - 16.0 g/dL LAB HEMETOLOGY METHOD 03/30/2024 7:26 AM [facility] Hematocrit 36.9 35.0 - 47.0 % LAB HEMETOLOGY METHOD 03/30/2024 7:26 AM [facility] MCV 100.3(H) 79.0 - 98.0 FL LAB HEMETOLOGY METHOD 03/30/2024 7:26 AM [facility] MCH 32.6(H) 27.0 - 32.0 pcg LAB HEMETOLOGY METHOD 03/30/2024 7:26 AM [facility] MCHC 32.5 32.0 - 37.0 g/dL LAB HEMETOLOGY METHOD 03/30/2024 7:26 AM [facility] RDW 12.3 11.0 - 15.0 % LAB HEMETOLOGY METHOD 03/30/2024 7:26 AM [facility] Platelets 261 130 - 400 K/mcL LAB HEMETOLOGY METHOD 03/30/2024 7:26 AM [facility] MPV 11.0 7.0 - 11.0 FL LAB HEMETOLOGY METHOD 03/30/2024 7:26 AM [facility] NRBC 0.0 <1.0 % LAB HEMETOLOGY METHOD 03/30/2024 7:26 AM [facility] NRBC Absolute 0.00 <0.10 K/mcL LAB HEMETOLOGY METHOD 03/30/2024 7:26 AM [facility] Neutrophils Relative 76.7 % LAB HEMETOLOGY METHOD 03/30/2024 7:26 AM [facility] Lymphocytes Relative 13.3 % LAB HEMETOLOGY METHOD 03/30/2024 7:26 AM [facility] Monocytes Relative 8.2 % LAB HEMETOLOGY METHOD 03/30/2024 7:26 AM [facility] Eosinophils Relative 0.6 % LAB HEMETOLOGY METHOD 03/30/2024 7:26 AM [facility] Basophils Relative 0.7 % LAB HEMETOLOGY METHOD 03/30/2024 7:26 AM [facility] Immature Granulocytes Relative 0.5 % LAB HEMETOLOGY METHOD 03/30/2024 7:26 AM [facility] Neutrophils Absolute 10.62(H) 1.50 - 7.00 K/mcL LAB HEMETOLOGY METHOD 03/30/2024 7:26 AM [facility] Lymphocytes Absolute 1.84 1.00 - 5.00 K/mcL LAB HEMETOLOGY METHOD 03/30/2024 7:26 AM [facility] Monocytes Absolute 1.14(H) 0.20 - 1.00 K/mcL LAB HEMETOLOGY METHOD 03/30/2024 7:26 AM [facility] Eosinophils Absolute 0.08 0.00 - 0.50 K/mcL LAB HEMETOLOGY METHOD 03/30/2024 7:26 AM [facility] Basophils Absolute 0.09 0.00 - 0.20 K/[facility] LAB HEMETOLOGY METHOD 03/30/2024 7:26 AM EST [facility] Immature Granulocytes Absolute 0.07(H) 0.00 - 0.03 K/[facility] LAB HEMETOLOGY METHOD 03/30/2024 7:26 AM EST [facility] Blood Venous blood specimen / Unknown Venipuncture / Unknown 03/30/2024 6:02 AM EST 03/30/2024 7:03 AM EST Krystle COLON LAB BLOOD ORDERABLES Final Resu lt [facility] [address] [place] [address], * Borrelia burgdorferi antibody (03/30/2024 6:02 AM EST) Only the most recent of2 resultswithin the time period is included. Pathologist [facility] Lyme Ab Negative Negative LAB CHEMISTRY METHOD 03/30/2024 8:27 AM EST [facility] Comment: No laboratory evidence of infection with B. burgdorferi (Lyme disease). Negative results may occur in patients recently infected (<=14 days) with B. burgdorferi. ??If recent infection is suspected, repeat testing on a new sample collected in 7-14 days is recommended. Blood Venous blood specimen / Unknown Venipuncture / Unknown 03/30/2024 6:02 AM EST 03/30/2024 7:03 AM EST Krystle COLON LAB BLOOD ORDERABLES Final Resu lt [facility] [address] [place] [address], [place] [phone] * Magnesium (03/30/2024 6:02 AM EST) Only the most recent of2 resultswithin the time period is included. [facility] Magnesium 2.5 1.9 - 2.6 mg/dL LAB CHEMISTRY METHOD 03/30/2024 7:41 AM EST [facility] Blood Venous blood specimen / Unknown Venipuncture / Unknown 03/30/2024 6:02 AM EST 03/30/2024 7:03 AM EST Krystle COLON LAB BLOOD ORDERABLES Final Resu lt Performing Organization Address City/[facility]/ZIP Co de Phone Number [facility] [address] [place] [address], [place] [phone] * ECG 12 lead (03/29/2024 10:46 PM EST) Only the most recent of3 resultswithin the time period is included. Ventricular Rate ECG 81 BPM GEM[facility] Atrial Rate 85 BPM GEM[facility] QRS Duration 168 ms GEMUSE Q-T Interval 470 ms GEMUSE QTc 545 ms GEMUSE R [place] -52 degrees GEMUSE T [place] 98 degrees GEMUSE ECG Interpretation Ventricular-pa juany rhythm Abnormal ECG When compared with ECG of 29-MAR-2024 13:54, Electronic ventricular pacemaker has replaced Sinus rhythm Vent. rate has increased BY ??51 BPM Confirmed by HESHAM PALACIO ([id number]) on 03/31/2024 9:39:34 AM GEMUSE 03/29/2024 10:4 6 PM EST 03/31/2024 9:39 AM EST Kim COLON ECG ORDERABLES Final Resul t Performing Organization Address City/[facility]/ZIP Co de Phone Number GEMUSE * NC INSERTION NON-TUNNELED CENTRALLY INSERTED CENTRAL VENOUS CATH 5 YRS/>, HC INSERTION/REMOVAL/REPLACEMENT CATH (03/29/2024 9:28 PM EST) Narrative Yulia Olguin, - 03/29/2024 9:28 PM EST Yulia Olguin, DO ? 03/29/2024 ??9:31 PM Central Line Date/Time: 03/29/2024 9:28 PM Performed by: Yulia Olguin DO Authorized by: Diego Rivas, DO ?? Consent: ??Consent obtained: ??Written ??Consent given by: ??Patient ??Risks, benefits, and alternatives were discussed: yes ?Risks discussed: ??Arterial puncture, bleeding, infection, incorrect placement, nerve damage and pneumothorax ??Alternatives discussed: ??No treatment [place] protocol: ??Patient identity confirmed: ??Verbally with patient and hospital-assigned identification number Pre-procedure details: ??Indication(s): central venous access and transvenous cardiac pacing ?Hand hygiene: Hand hygiene performed prior to insertion ?Sterile barrier technique: All elements of maximal sterile technique followed ?Skin preparation: ??Chlorhexidine ??Skin preparation agent: Skin preparation agent completely dried prior to procedure ?? Sedation: ??Sedation type: ??None Anesthesia: ??Anesthesia method: ??Local infiltration ??Local anesthetic: ??Lidocaine 1% w/o epi Procedure details: ??Location: ??R internal jugular ??Patient position: ??Supine ??Procedural supplies: ??Cordis ??Catheter size: ??7 Fr ??Landmarks identified: yes ?Ultrasound guidance: yes ?Ultrasound guidance timing: prior to insertion and real time ?Number of attempts: ??2 ??Successful placement: yes ?? Post-procedure details: ??Post-procedure: ??Dressing applied and line sutured ??Assessment: ??Blood return through all ports, no pneumothorax on x-ray and placement verified by x-ray ??Procedure completion: ??Tolerated us Diego Rivas DO IN CLINIC/BEDSIDE ORDERABLE S Final Result * XR Chest 1 View (03/29/2024 9:19 PM EST) Only the most recent of2 resultswithin the time period is included. Anatomical Region Laterality Modality Body Radiographic Allie ging 03/30/2024 7:27 AM EST Impressions 03/30/2024 7:29 AM EST The tip of the temporary pacing lead is not included. I cannot exclude that the lead projects into the IVC. No pneumothorax demonstrated -------- FINAL REPORT -------- Dictated By: Tomás Garcia Dictated Date: 03/30/2024 07:27 ET Assigned Physician: Tomás Garcia Reviewed and Electronically Signed By: Tomás Garcia Signed Date: 03/30/2024 07:29 ET Workstation ID: [id number] Transcribed By: Self Edit Transcribed Date: 03/30/2024 07:27 ET Narrative 03/30/2024 7:29 AM EST EXAMINATION: CHEST CLINICAL INFORMATION: Temporary pacer placement COMPARISON: 03/29/2024 TECHNIQUE: Portable supine frontal view of the chest FINDINGS: The lowest portion of the chest is excluded. Numerous devices overlie the patient and obscures some of the anatomy. Right IJ approach temporary pacing lead is visualized to the level of the cardiac silhouette the tip is not included. I cannot exclude that this extends into the IVC. There is kyphosis and rotation. No interval mediastinal widening. No definite pneumothorax demonstrated Procedure Note Tomás Garcia MD - 03/30/2024 EXAMINATION: CHEST CLINICAL INFORMATION: Temporary pacer placement COMPARISON: 03/29/2024 TECHNIQUE: Portable supine frontal view of the chest FINDINGS: The lowest portion of the chest is excluded. Numerous devices overlie thepatient and obscures some of the anatomy. Right IJ approach temporarypacing lead is visualized to the level of the cardiac silhouette the tipis not included. I cannot exclude that this extends into the IVC. There is kyphosis and rotation. No interval mediastinal widening. No definite pneumothorax demonstrated IMPRESSION: The tip of the temporary pacing lead is not included. I cannot excludethat the lead projects into the IVC. No pneumothorax demonstrated -------- FINAL REPORT -------- Dictated By: Tomás Garcia Dictated Date: 03/30/2024 07:27 ET Assigned Physician: Tomás Garcia Reviewed and Electronically Signed By: Tomás Garcia Signed Date: 03/30/2024 07:29 ET Workstation ID: [id number] Transcribed By: Self Edit Transcribed Date: 03/30/2024 07:27 ET Krystle COLON IMG XR PROCEDURES Final Result * (ABNORMAL) Troponin I high sensitivity (03/29/2024 1:55 PM EST) Only the most recent of2 resultswithin the time period is included. Pathologist [facility] High Sensitivity Troponin I 100(H) <=54 ng/L LAB CHEMISTRY METHOD 03/29/2024 2:48 PM EST [facility] Blood Venous blood specimen / Unknown Venipuncture / Unknown 03/29/2024 1:55 PM EST 03/29/2024 2:21 PM EST Narrative [facility] - 03/29/2024 2:48 PM EST High levels of biotin in samples may falsely decrease hsTroponin values. ??Use caution when interpreting hsTroponin results in patients taking biotin who exhibit renal impairment (eGFR <60) or in patients taking more than 20 mg/day of biotin. Suzi Corrales MD LAB BLOOD ORDERABLES Final Res ult Performing Organization Address City/[facility]/ZIP Co de Phone Number [facility] [address] [place] [address], [place] [phone] * (ABNORMAL) Thyroid stimulating hormone with reflex to free t4 and free t3 (TSH Reflex) (03/29/2024 12:41 PM EST) [facility] TSH 16.33(H) 0.40 - 4.00 mcIU/mL LAB CHEMISTRY METHOD 03/29/2024 1:46 PM EST [facility] Blood Venous blood specimen / Unknown Venipuncture / Unknown 03/29/2024 12:41 PM EST 03/29/2024 12:53 PM EST Diego Rivas DO LAB BLOOD ORDERABLES Final Result Performing Organization Address City/[facility]/ZIP Co de Phone Number [facility] [address] [place] [address], [place] [phone] * Free thyroxine with reflex to free triiodothyronine (03/29/2024 12:41 PM EST) [facility] Free T4 1.48 0.70 - 1.80 ng/dL LAB CHEMISTRY METHOD 03/29/2024 2:18 PM EST [facility] Blood Venous blood specimen / Unknown Venipuncture / Unknown 03/29/2024 12:41 PM EST 03/29/2024 12:53 PM EST Diego Rivas DO LAB BLOOD ORDERABLES Final Result Performing Organization Address [facility]/ZIP Co de Phone Number [facility] [address] [place] [address], [place] [phone] * (ABNORMAL) Triiodothyronine free (03/29/2024 12:41 PM EST) T3, Free 186(L) 230 - 420 pcg/dL LAB CHEMISTRY METHOD 03/29/2024 2:55 PM EST [facility] Blood Venous blood specimen / Unknown Venipuncture / Unknown 03/29/2024 12:41 PM EST 03/29/2024 12:53 PM EST us Diego Rivas DO LAB BLOOD ORDERABLES Final Result Performing Organization Address [facility] Co de Phone Number [facility] [address] [place] [address], [place] [phone] * (ABNORMAL) B-type natriuretic peptide (03/29/2024 12:41 PM EST) BNP 204(H) <=100 pcg/mL LAB CHEMISTRY METHOD 03/29/2024 1:40 PM EST [facility] Blood Venous blood specimen / Unknown Venipuncture / Unknown 03/29/2024 12:41 PM EST 03/29/2024 12:52 PM EST us Diego Rivas DO LAB BLOOD ORDERABLES Final Result Performing Organization Address City/[facility]/ZIP Co de Phone Number [facility] [address] [place] [address], [place] [phone] * Lipase (03/29/2024 12:41 PM EST) Pathologist [facility] Lipase 45 13 - 75 unit/L LAB CHEMISTRY METHOD 03/29/2024 1:24 PM EST [facility] Blood Venous blood specimen / Unknown Venipuncture / Unknown 03/29/2024 12:41 PM EST 03/29/2024 12:53 PM EST Diego Rivas DO LAB BLOOD ORDERABLES Final Result [facility] [address] [place] [address], * Hemoglobin A1c (03/29/2024 12:41 PM EST) [facility] Hemoglobin A1C 6.1 <6.5 % LAB CHEMISTRY METHOD 03/30/2024 12:28 PM EST [facility] Mean Bld Glu Estim. 128 mg/dL LAB CHEMISTRY METHOD 03/30/2024 12:28 PM [facility] Blood Venous blood specimen / Unknown Venipuncture / Unknown 03/29/2024 12:41 PM EST 03/29/2024 12:53 PM EST Kim COLON LAB BLOOD ORDERABLES Final Result [facility] [address] [place] [address], [place] [phone] * (ABNORMAL) Comprehensive metabolic panel (03/29/2024 12:41 PM EST) [facility] Sodium 134 133 - 145 mmol/L LAB CHEMISTRY METHOD 03/29/2024 1:24 PM [facility] Potassium 3.8 3.5 - 5.5 mmol/L LAB CHEMISTRY METHOD 03/29/2024 1:24 PM [facility] Chloride 102 96 - 110 mmol/L LAB CHEMISTRY METHOD 03/29/2024 1:24 PM [facility] CO2 25 21 - 32 mmol/L LAB CHEMISTRY METHOD 03/29/2024 1:24 PM [facility] Anion Gap 7 3 - 11 LAB CHEMISTRY METHOD 03/29/2024 1:24 PM [facility] Glucose 154(H) 70 - 100 mg/dL LAB CHEMISTRY METHOD 03/29/2024 1:24 PM [facility] BUN 25 5 - 25 mg/dL LAB CHEMISTRY METHOD 03/29/2024 1:24 PM [facility] Creatinine 1.52(H) 0.50 - 1.10 mg/dL LAB CHEMISTRY METHOD 03/29/2024 1:24 PM [facility] eGFR 33(L) >=60 mL/min/1. 73m2 LAB CHEMISTRY METHOD 03/29/2024 1:24 PM [facility] Comment:Calculation based on the??Chronic Kidney Disease Epidemiology Collaboration (CKD-EPI) equation refit??without adjustment for race. BUN/Creatinine Ratio 16.4 LAB CHEMISTRY METHOD 03/29/2024 1:24 PM [facility] Calcium 9.4 8.5 - 10.5 mg/dL LAB CHEMISTRY METHOD 03/29/2024 1:24 PM [facility] AST (SGOT) 17 10 - 42 unit/L LAB CHEMISTRY METHOD 03/29/2024 1:24 PM [facility] ALT (SGPT) 31 10 - 60 unit/L LAB CHEMISTRY METHOD 03/29/2024 1:24 PM [facility] Alkaline Phosphatase 40(L) 42 - 121 unit/L LAB CHEMISTRY METHOD 03/29/2024 1:24 PM [facility] Total Protein 6.5 6.0 - 8.0 g/dL LAB CHEMISTRY METHOD 03/29/2024 1:24 PM [facility] Albumin 3.5 3.2 - 5.0 g/dL LAB CHEMISTRY METHOD 03/29/2024 1:24 PM EST [facility] Total Bilirubin 0.8 0.0 - 1.4 mg/dL LAB CHEMISTRY METHOD 03/29/2024 1:24 PM EST [facility] Blood Venous blood specimen / Unknown Venipuncture / Unknown 03/29/2024 12:41 PM EST 03/29/2024 12:53 PM EST us Diego Rivas DO LAB BLOOD ORDERABLES Final Result [facility] [address] [place] [address], * [place] CRITICAL CARE 30-74 MINUTES (03/29/2024 11:35 AM EST) Narrative Diego Rivas DO - 03/29/2024 11:35 AM EST Diego Rivas DO ? 03/30/2024 ??8:57 AM Critical Care Performed by: Diego Rivas DO Authorized by: Diego Rivas DO ?? Critical care provider statement: ??Critical care time (minutes): ??60 ??Critical care time was exclusive of: ??Separately billable procedures and treating other patients ??Critical care was necessary to treat or prevent imminent or life-threatening deterioration of the following conditions: ??Cardiac failure ??Critical care was time spent personally by me on the following activities: ??Blood draw for specimens, discussions with consultants, development of treatment plan with patient or surrogate, examination of patient, obtaining history from patient or surrogate, ordering and performing treatments and interventions, ordering and review of laboratory studies, ordering and review of radiographic studies, pulse oximetry, re-evaluation of patient's condition and review of old charts Comments: ?? Patient is an second-degree type II heart block. ??She has marked severe bradycardia. ??This has the risk of worsening into complete heart block. ?? Workup included an urgent evaluation for electrolyte abnormality, etiology from AV brenton blockers and an emergency consult the cardiology and electrophysiology. ??Multiple checks on telemetry. ??Pacer pads have been placed. us Diego Rivas DO IN CLINIC/BEDSIDE ORDERABLE S Edited Result - Final * ECG-Annotated (03/29/2024) Only the most recent of2 resultswithin the time period is included. us Provider Onbase MD ECG ORDERABLES Final Result from Last 3 Months Insurance MEDICARE [facility] Advance Directives * Full Code - Confirmed (Latest Code Status on File) Date Activated Date Inactivated Comments 03/29/2024 3:58 PM 03/31/2024 4:[address] atus was ascertained in the following way: Code status discussion: discussion with patient To update the patient's code status, place a code status order. Do not modify or discontinue any currently active code status orders. * Full Code - Default Date Activated Date Inactivated Comments 03/29/2024 2:18 PM 03/29/2024 3:58 PM This is orde r is used when code status has not been discussed with the patient, or code status is otherwise unknown/unconfirmed To update the patient's code status, place a code status order. Do not modify or discontinue any currently active code status orders. Care Teams Patient Accounts Manager Relationship Specialty Start Date End Date Criss Davis MD [address] [place] [id number] PCP - General Internal Medicine 03/29/24
--- OUTSIDE RECORDS SUMMARY | 2024-06-02 12:31 | XMS_ITS | Encounter Summary ---
Author Organization [facility] Address [address] [place] [address] Care Team Providers Care Care Management Associate Name Role Phone Criss Davis MD Primary Care Provider Reason for Visit * Reason Onset Date Comments Appointment 05/05/2024 Coronary CTA Encounter Details Date Type Department Care Team (Late st Contact Info) Description 05/05/2024 Telephone [facility] - [address] [place] [phone] Cee Sena NP [address] [place] [phone] Appointment (Coronary CTA) Social History Tobacco Use Types Packs/Day Years [...] as of this encounter Progress Notes * Hector Williamson - 05/06/2024 1:44 PM ESTAddended by: HECTOR WILLIAMSON on: 05/06/2024 01:44 PM Modules accepted: Orders * Hector Williamson - 05/06/2024 1:32 PM EST Pt is scheduled for a Coronary CTA scan on 07/06/24, 2:00pm arr., 3:30pm, @[facility]. Order and ov note faxed. Letter mailed and lab slip mailed. * Hector Williamson - 05/05/2024 11:27 AM EST Order, demos and ov note have been faxed to [facility] scheduling to schedule pt for a Coronary CTA scan. Waiting for appointment info. documented in this encounter Plan of Treatment Upcoming Encounters Date Type Department Care Team (Late st Contact Info) Description 07/06/2024 3:30 PM EDT Ancillary Procedure [facility] Cardiology [facility] - [address] [place] [address] 11/09/2024 2:40 PM EDT Office Visit [facility] - [address] [place] [address] Cee Sena NP [address] [place] [address] 04/25/2025 4:00 PM EST Ancillary Procedure [facility] - [address] [place] [address] Scheduled Orders Name Type Priority Associated Diagnoses Orde r Schedule Basic metabolic panel Lab Routine Chest pain, unspecified type CHB (complete heart block) (CMS/HCC) 1 Occurrences starting 05/06/2024 until 05/06/2025 documented as of this encounter Visit Diagnoses Diagnosis Chest pain, unspecified type- Primary CHB (complete heart block) (CMS/HCC) Atrioventricular block, complete Encounter for adjustment or management of cardiac device documented in this encounter Care Teams Care Management Associate Relationship Specialty Start Date End Date Criss Davis MD [address] [place] [phone] PCP - General Internal Medicine 03/29/24 documented as of this encounter
--- OUTSIDE RECORDS SUMMARY | 2024-06-02 12:31 | XMS_ITS | Encounter Summary ---
Author Organization [facility] Address [address] [place] [address] Care Team Providers Care Shoe Turner Name Role Phone Criss Davis MD Primary Care Provider Reason for Visit * Imaging (Routine) - Closed Specialty Diagnoses / Procedures Referred By Contac t Referred To Contact Diagnoses Visual disturbance Weakness Pre-syncope Procedures Vascular US duplex carotid bilateral Cee Sena NP [address] [place] [address] Phone: tel: fax: [facility] Referral ID Status Reason Start Date Expiration Date Visits Re quested Visits Authorized [id number] Closed 04/25/2024 04/25/2025 1 1 Encounter Details Date Type Department Care Team (Latest Contact Info) Description 05/05/2024 12:30 PM EST Ancillary Procedure [facility] - [facility] [address] [place] [address] Visual disturbance; Weakness; Pre-syncope Social History Tobacco Use Types Packs/Day Years [...] PM EST documented as of this encounter Plan of Treatment Upcoming Encounters Date Type Department Care Team (Late st Contact Info) Description 07/06/2024 3:30 PM EDT Ancillary Procedure [facility] - [address] [place] [phone] 11/09/2024 2:40 PM EDT Office Visit [facility] - [address] [place] [phone] Cee Sena, ANANYA [address] [place] [phone] 04/25/2025 4:00 PM EST Ancillary Procedure [facility] - [address] [place] [phone] documented as of this encounter Procedures Procedure Name Priority Date/Time Associated Diagnosis Comments VAS US DUPLEX CAROTID BILATERAL Routine 05/05/2024 1:00 PM EST Visual disturbance Weakness Pre-syncope documented in this encounter Results * Vascular US duplex carotid bilateral [...] Interpretation was done according to the [place] Symptomatic Carotid Endarterectomy Trial (NASCET) criteria ??and [...] heterogeneous plaque. The ECA has heterogeneous plaque. Bed And Breakfast Operator Details A solorio scale, color and doppler analysis ultrasound was performed. During the study longitudinal and transverse views were obtained. Pulsed wave doppler was performed. us Cee Sena NP CV VASCULAR PROCEDURES Final Result documented in this encounter Visit Diagnoses Diagnosis Visual disturbance Unspecified visual disturbance Weakness Other malaise and fatigue Pre-syncope Syncope and collapse Encounter for adjustment or management of cardiac device documented in this encounter Care Teams Shoe Turner Relationship Specialty Start Date End Date Criss Davis MD [address] [place] [address] PCP - General Internal Medicine 03/29/24 documented as of this encounter
== END 2024-06-02 12:04 | disposition home or self-care (01) ==
LOC: HO.RHES 10:41
PROVIDERS: PCP Internal Medicine; Visit Provider Internal Medicine Rheumatology
DX: M35.3 Polymyalgia rheumatica (principal); Z79.52 Long term (current) use of systemic steroids; M75.02 Adhesive capsulitis of left shoulder; E27.40 Unspecified adrenocortical insufficiency
CPT/HCPCS: 99204

== ENCOUNTER 2024-06-02 10:40 | Outpatient (REF) | payer MEDICARE, OTHER, SELFPAY ==
[2024-06-02 18:37] LABS: C Reactive Protein 0.27 mg/dL (< or = 0.50); Calcium 10.5 mg/dL (8.4-10.2); Magnesium 1.8 mg/dL (1.6-2.6)
[2024-06-02 18:57] LABS: Vitamin D 25-OH Total 39.7 ng/mL (>30)
[2024-06-02 19:19] LABS: Erythrocyte Sedimentation Rate 34 MM/HR (0-15)
== END 2024-06-02 10:41 | disposition home or self-care (01) ==
LOC: HO.HKASLDS 10:40
PROVIDERS: Internal Medicine Nephrology; PCP Internal Medicine; Visit Provider Internal Medicine Rheumatology
DX: D35.1 Benign neoplasm of parathyroid gland (principal); I10 Essential (primary) hypertension; Z79.899 Other long term (current) drug therapy; Z79.52 Long term (current) use of systemic steroids; M35.3 Polymyalgia rheumatica; M75.02 Adhesive capsulitis of left shoulder; E27.40 Unspecified adrenocortical insufficiency
CPT/HCPCS: 36415; 82306; 82310; 83735; 85652; 86140; 99202; 99212

== ENCOUNTER 2024-06-02 12:09 | Outpatient (AMB) | payer MEDICARE, OTHER, SELFPAY ==
--- NOTE | 2024-06-02 12:19 | HO.NEPHOV ---
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 She had a pacemaker inserted couple of months ago. She is following up with [facility]. She has seen Dr Lucien Killian this morning and her systolic BP was found to be in 90's. She has been on prednisone for some time for PMR and is being referred to Endocrinology to R/O hypoadrenalism .She remains on calcitriol which is keeping her PTH at goal. She does not have any nephrolithiasis, flank pain, hematuria. Her serum calcium has been normal. She had sestamibi scan in the past which showed parathyroid adenoma for which she had seen endocrine surgeon. She does not have any chest pain, shortness of breath, paroxysmal nocturnal dyspnea, orthopnea, pedal edema or orthostatic symptoms. She was accompanied by her daughter in the office today. [facility] Medical History (Updated 06/02/24 @ 12:41 by Lucien Killian MD) Pacemaker Type 2 diabetes mellitus Seasonal allergic rhinitis Polymyalgia rheumatica Paresthesia of hand Osteopenia Obesity Iron deficiency anemia Hypothyroidism Hiatal hernia GERD (gastroesophageal reflux disease) Essential (primary) hypertension Dyslipidemia Depressive disorder Chronic kidney disease Anemia Surgical History History of cataract surgery History of cholecystectomy Family History Mother Cancer Maternal Aunt Cancer Maternal Uncle Cancer Social History Alcohol intake: never Patient Tobacco Use Status: Never used Tobacco Review of Systems Const All systems reviewed & are unremarkable except as noted in HPI and below Physical Exam Const General: comfortable and no acute distress Orientation/consciousness: patient oriented x3 HEENT Head: Yes normocephalic Mouth: Normal oral and palatal mucosa present Eyes EOM: EOMs intact bilaterally Neck Neck: Yes supple Resp Auscultation: clear to auscultation bilaterally Cardio Jugular venous distension: no JVD Rate: regular rate GI Palpation (GI): Soft to palpation Auscultation: normal bowel sounds General: Yes no CVA tenderness Back/Spine/Pelvis Back: no CVA tenderness Skin General skin exam: no rashes or lesions noted Neuro General: patient oriented x3 and moves all extremities Extrem General: Yes no pedal edema Results Reviewed Nephrology Results: No Data to Display Assessment & Plan Assessment & Plan (1) Parathyroid adenoma: Code(s): D35.1 - Benign neoplasm of parathyroid gland Category: Medical (2) Essential (primary) hypertension: Code(s): I10 - Essential (primary) hypertension Category: Medical Plan Her serum creatinine has been stable, last reading being 1.17. Her blood pressure is at goal in the office with me but her systolic reading was 90 this morning. She is tolerating angiotensin receptor wolfgang. Her serum potassium has been normal. Her serum calcium is within acceptable limits. Her PTH is stable. She can continue calcitriol for now but shall consider cinacalcet , if indicated. (Sestamibi scan done in the past showed parathyroid adenoma. She had seen endocrine surgeon as well). She maintains good hydration. She avoids nonsteroidal anti-inflammatories. I did not make any medication changes today. All her and her daughter's questions were answered. Follow-up appointment given for next year. Orders: Orders Calcium 6 Months D35.1 - Benign neoplasm of parathyroid gland, I10 - Essential (primary) hypertension Creatinine 6 Months D35.1 - Benign neoplasm of parathyroid gland, I10 - Essential (primary) hypertension Parathyroid Hormone Intact 6 Months D35.1 - Benign neoplasm of parathyroid gland, I10 - Essential (primary) hypertension Electrolytes 6 Months D35.1 - Benign neoplasm of parathyroid gland, I10 - Essential (primary) hypertension Blood Urea Nitrogen 6 Months D35.1 - Benign neoplasm of parathyroid gland, I10 - Essential (primary) hypertension Magnesium Today D35.1 - Benign neoplasm of parathyroid gland, I10 - Essential (primary) hypertension Coding Level of Care Code Est Pt Level 4 (75990) Diagnoses Parathyroid adenoma D35.1 Essential (primary) hypertension I10
[2024-06-02 12:22] VITALS: BP 130/70; PULSE 72; O2SAT 99; BMI 30.7
--- OUTSIDE RECORDS SUMMARY | 2024-06-02 14:35 | XMS_ITS | Clinical Summary ---
Author Organization [facility] Address [address] [place] [address] Phone Care Team Providers Care Maitre D' Name Role Phone Criss Davis MD Primary [...] Type Department Care Team Description 05/12/2024 Telephone [facility] - [address] [place] [address] Cee Sena NP Carotid Ultrasound Results 05/05/2024 12:30 PM EST Ancillary Procedure [facility] - [address] [place] [address] Visual disturbance; Weakness; Pre-syncope 05/05/2024 Telephone [facility] - [address] [place] [address] Cee Sena NP Appointment (Coronary CTA) 04/25/2024 2:00 PM EST Ancillary Procedure [facility] - [address] [place] [address] Encounter for adjustment or management of cardiac device 04/25/2024 12:40 PM EST Office Visit [facility] [address] [place] [address] Cee Sena NP CHB (complete heart block) (CMS/HCC) (Primary Dx); Chest pain, unspecified type; Visual disturbance; Weakness; Pre-syncope; Weakness acquired in ICU 04/22/2024 2:50 PM EST Ancillary Procedure [facility] - [address] [place] [id number] 04/18/2024 Telephone [facility] - [address] [place] [address] Cee Sena NP not feeling well (Weak ) 03/30/2024 3:36 PM EST Anesthesia Event [facility] Cardiac Escalator Installer [address] [place] [phone] Brett Carrizales MD 03/30/2024 1:15 PM EST - 03/30/2024 3:15 PM EST Surgery [facility] Cardiac Escalator Installer [address] [place] [phone] Uriel Kulkarni MD Insert PPM dual chamber 03/29/2024 12:54 PM EST - 03/31/2024 2:46 PM EST Hospital Encounter [facility] Intermediate Care Unit [address] [place] [address] Diego Rivas, Suzi Russo MD Zipagan, James T, MD Rasul, Yar M, MD Surendran, Anupama, MD Bradycardia (Primary Dx); Elevated TSH; CHB (complete heart block) ([facility]) Discharge Disposition: Home or Self Care from Last 3 Months Surgical History Surgery Date Site/Laterality Comments CHOLECYSTECTOMY CATARACT EXTRACTION REFRACTIVE SURGERY Left DILATION AND CURETTAGE OF UTERUS Medical History Medical History Date Comments Hypertension Hyperlipidemia CKD (chronic kidney disease) stage 3, GFR 30-59 ml/min ([facility]) Parathyroid adenoma PMR (polymyalgia rheumatica) ([facility]) Diabetes mellitus ([facility]) diet controlled Hypothyroid Social History Tobacco Use [...] Description 07/06/2024 3:30 PM EDT Ancillary Procedure [facility] - [address] [place] [address] 11/09/2024 2:40 PM EDT Office Visit [facility] - [address] [place] [address] Cee Sena, ANANYA [address] [place] [phone] 04/25/2025 4:00 PM EST Ancillary Procedure [facility] - [address] [place] [phone] Health Maintenance Due Date Last Done Comments [...] this topic Medical Devices Implanted Type Area Residence Manager Device Identifier Shelf Expiration Date Model / Serial / Lot Lead Pcmk Tendril Sts [id number] - [id number] - [id number] Implanted:Qty: 1 on 03/30/2024 by Uriel Kulkarni MD at [facility] Cardiac Lead N/A: Heart [facility] [id number] 12/13/2026 2088TC/58 / [id number] / Lead Pcmk Tendril Sts [id number] - [id number] - [id number] Implanted:Qty: 1 on 03/30/2024 by Uriel Kulkarni MD at [facility] Cardiac Lead N/A: Heart [facility] [id number] 01/13/2027 2088TC/52 / [id number] / Pcmkr Assurity Mri Dr-Rf Dual - [id number] - [id number] Implanted:Qty: 1 on 03/30/2024 by Uriel Kulkarni MD at [facility] Cardiac Pacemaker Left: Chest Wall [facility] [id number] 07/13/2025 [id number] / [id number] / Abbt-Stju 2272 Assurity Mri(Tm) [id number] Implanted:03/16 by Uriel Kulkarni MD (Quantity not on file) Cardiac Pacemaker Left: Chest [facility] 2272 ASSURITY MRI(TM) / [id number] / Abbt-Stju Assurity Mri 2272 [id number] Implanted:03/16 (Quantity not on file) Cardiac Pacemaker [facility] ASSURITY MRI 2272 / [id number] / Hemostat Absorb 1x2 Surgicel Fibrillar - [id number] Implanted:Qty: 1 on 03/30/2024 by Uriel Kulkarni MD at [facility] Hemostasis Left: Chest Wall [employer] [id number] 12/13/2025 1961 / / [id number] Procedures Procedure Name Priority Date/Time Associated Diagnosis [...] CEMENT CATH Routine 03/29/2024 9:28 PM EST [place] INSERTION NON-TUNNELED CENTRALLY INSERTED CENTRAL VENOUS CATH [...] ECG 12-LEAD STAT 03/29/2024 12:37 PM EST [place] CRITICAL CARE 30-74 MINUTES Routine 03/29/2024 11:35 [...] Interpretation was done according to the [place] Symptomatic Carotid Endarterectomy Trial (NASCET) criteria ??and [...] heterogeneous plaque. The ECA has heterogeneous plaque. Maintenance Shop Laborer Details A solorio scale, color and doppler analysis ultrasound was performed. During the study longitudinal and transverse views were obtained. Pulsed wave doppler was performed. us Cee Sena NP CV VASCULAR PROCEDURES Final Result * [facility]ARDI[facility]ICE [place] [facility] (04/25/2024 1:35 PM EST) Date Time Interrogation Session [id number] CV DEVICE CHECK Implantable Pulse Generator Residence Manager [place] CV DEVICE CHECK Implantable Pulse Generator Type IPG CV DEVICE CHECK Implantable Pulse Generator Model Assurity MRI 2272 CV DEVICE CHECK Implantable Pulse Generator Serial Number [id number] CV DEVICE CHECK Implantable Pulse Generator Implant [...] reviewed and tested * Presenting Rhythm: - SCHOOL OFFICE MANAGER 60's * Underlying Rhythm: - VS 60's [...] reviewed and tested * Presenting Rhythm: - SCHOOL OFFICE MANAGER 60's * Underlying Rhythm: - VS 60's [...] 2:49 PM EST) Date Time Interrogation Session [id number] CV DEVICE CHECK Type Interrogation Session Remote Patient Initiated CV DEVICE CHECK Implantable Pulse Generator Residence Manager [place] CV DEVICE CHECK Implantable Pulse Generator Type IPG CV DEVICE CHECK Implantable Pulse Generator Model 2272 Assurity MRI(TM) CV DEVICE CHECK Implantable Pulse Generator Serial Number [id number] CV DEVICE CHECK Implantable Pulse Generator Implant Date 20240330 CV DEVICE CHECK Battery Remaining Percentage 95.50 CV DEVICE CHECK Battery Remaining Longevity 65.0 CV DEVICE CHECK Battery Voltage 3.010 CV D EVICE CHECK Battery MSW Trigger 2.600 CV DEVICE CHECK Battery Status Middle of Service CV DEVICE CHECK Nimesh Statistic RA Percent Paced 68.00 CV DEVICE CHECK Nimesh Statistic RV Percent Paced 99.00 CV DEVICE CHECK Atrial Tachy Statistic AT/AF [place] Percent 0.00 CV DEVICE CHECK Lead Channel [...] changes noted Narrative Procedure Note Rosy Cat, MACHINE SOLE LEVELER - 04/22/2024 IMPRESSION: Normal Remote: No Events [...] mmol/L LAB CHEMISTRY METHOD 03/31/2024 9:35 AM [facility] Potassium 4.5 3.5 - 5.5 mmol/L LAB CHEMISTRY METHOD 03/31/2024 9:35 AM [facility] Comment:Hemolysis present Chloride 107 96 - 110 mmol/L LAB CHEMISTRY METHOD 03/31/2024 9:35 AM [facility] CO2 25 21 - 32 mmol/L LAB CHEMISTRY METHOD 03/31/2024 9:35 AM [facility] Anion Gap 5 3 - 11 LAB CHEMISTRY METHOD 03/31/2024 9:35 AM [facility] Glucose 156(H) 70 - 100 mg/dL LAB CHEMISTRY METHOD 03/31/2024 9:35 AM [facility] BUN 19 5 - 25 mg/dL LAB CHEMISTRY METHOD 03/31/2024 9:35 AM [facility] Creatinine 1.44(H) 0.50 - 1.10 mg/dL LAB CHEMISTRY METHOD 03/31/2024 9:35 AM [facility] eGFR 35(L) >=60 mL/min/1. 73m2 LAB CHEMISTRY METHOD 03/31/2024 9:35 AM [facility] Comment:Calculation based on the??Chronic Kidney Disease Epidemiology Collaboration (CKD-EPI) equation refit??without adjustment for race. BUN/Creatinine Ratio 13.2 LAB CHEMISTRY METHOD 03/31/2024 9:35 AM [facility] Calcium 9.7 8.5 - 10.5 mg/dL LAB CHEMISTRY METHOD 03/31/2024 9:35 AM [facility] Blood Venous blood specimen / Unknown Venipuncture / Unknown 03/31/2024 8:59 AM EST 03/31/2024 9:06 AM EST Nila Valle MD LAB BLOOD ORDERABLES Final Result [facility] [address] [place] [address], [place] [phone] * XR Chest 2 Views (03/31/2024 8:41 AM EST) Anatomical Region Laterality Modality Body Radiographic Allie ging 03/31/2024 8:43 AM EST Impressions 03/31/2024 8:44 AM EST No acute findings. -------- FINAL REPORT -------- Dictated By: Dameon Amanda Dictated Date: 03/31/2024 08:43 ET Assigned Physician: Dameon Amanda Reviewed and Electronically Signed By: Dameon Amanda Signed Date: 03/31/2024 08:44 ET Workstation ID: [id number] Transcribed By: Self Edit Transcribed Date: 03/31/2024 [...] Signed Date: 03/31/2024 08:44 ET Workstation ID: [id number] Transcribed By: Self Edit Transcribed Date: 03/31/2024 08:43 ET us Criss Thompson MACHINE SOLE LEVELER IMG XR PROCEDURES Final Re sult * INSERT PPM DUAL (03/30/2024 6:13 PM EST) Anatomical Region Laterality Modality X-Ray Angiograph y Narrative 04/09/2024 11:10 PM EST Impression Insertion of a new pacemaker with transvenous electrode atrial and ventricular. ??This is a left bundle area pacemaker. Conscious sedation Venography of the extremity to view subclavian vein and injection Follow-Up [facility] Study Details Procedure Note [...] underlying pectoral muscle. I used a 6 Salvadorean sheath and double wired for 2 wire access. I then used a 8 Salvadorean sheath and then a external hook sheath [...] extended hook sheath. I remove the 9 Salvadorean sheath and I sutured the lead down to the underlying pectoral muscle. I then placed a 6 Salvadorean sheath over the other remaining wire. I placed an endocardial pacing lead in the right atrial appendage. After confirming good sensing, thresholds, and impedances I then removed the 6 Salvadorean sheath. I sutured the lead down to [...] number is PM [id number]. Serial number is [id number]. Right atrial lead is a model #2088 TC/52. Serial number is [id number]. RV lead is a model #2088 TC/58. Serial number is [id number]. Atrial threshold is 1 V at 0.4 [...] to view subclavian vein and injection Follow-[facility] Procedure Details Description Patient [...] underlying pectoral muscle. I used a 6 Salvadorean sheath and double wired for 2 wire access. I then used a 8 Salvadorean sheath and then a external hook sheath [...] extended hook sheath. I remove the 9 Salvadorean sheath and I sutured the lead down to the underlying pectoral muscle. I then placed a 6 Salvadorean sheath over the other remaining wire. I placed an endocardial pacing lead in the right atrial appendage. After confirming good sensing, thresholds, and impedances I then removed the 6 Salvadorean sheath. I sutured the lead down to [...] number is PM 2272. Serial number is [id number]. Right atrial lead is a model #2088 TC/52. Serial number is E [id number]. RV lead is a model #2088 TC/58. Serial number is [id number]. Atrial threshold is 1 V at 0.4 [...] hemodynamics during the procedure. us Criss Thompson MACHINE SOLE LEVELER CV ELECTROPHYSIOLOGY ALYSSA PALMAMITA Final Result * (ABNORMAL) CBC auto differential (03/30/2024 6:02 AM EST) Only the most recent of2 resultswithin the time period is included. WBC 13.8(H) 4.8 - 10.8 K/mcL LAB HEMETOLOGY METHOD 03/30/2024 7:26 AM [facility] RBC 3.70(L) 3.80 - 4.80 M/mcL LAB HEMETOLOGY METHOD 03/30/2024 7:26 AM [facility] Hemoglobin 12.0 11.5 - 16.0 g/dL LAB HEMETOLOGY METHOD 03/30/2024 7:26 AM [facility] Hematocrit 36.9 35.0 - 47.0 % LAB HEMETOLOGY METHOD 03/30/2024 7:26 AM [facility] MCV 100.3(H) 79.0 - 98.0 FL LAB HEMETOLOGY METHOD 03/30/2024 7:26 AM [facility] MCH 32.6(H) 27.0 - 32.0 pcg LAB HEMETOLOGY METHOD 03/30/2024 7:26 AM [facility] MCHC 32.5 32.0 - 37.0 g/dL LAB HEMETOLOGY METHOD 03/30/2024 7:26 AM [facility] RDW 12.3 11.0 - 15.0 % LAB HEMETOLOGY METHOD 03/30/2024 7:26 AM [facility] Platelets 261 130 - 400 K/mcL LAB HEMETOLOGY METHOD 03/30/2024 7:26 AM [facility] MPV 11.0 7.0 - 11.0 FL LAB HEMETOLOGY METHOD 03/30/2024 7:26 AM [facility] NRBC 0.0 <1.0 % LAB HEMETOLOGY METHOD 03/30/2024 7:26 AM [facility] NRBC Absolute 0.00 <0.10 K/mcL LAB HEMETOLOGY METHOD 03/30/2024 7:26 AM [facility] Neutrophils Relative 76.7 % LAB HEMETOLOGY METHOD 03/30/2024 7:26 AM [facility] Lymphocytes Relative 13.3 % LAB HEMETOLOGY METHOD 03/30/2024 7:26 AM [facility] Monocytes Relative 8.2 % LAB HEMETOLOGY METHOD 03/30/2024 7:26 AM [facility] Eosinophils Relative 0.6 % LAB HEMETOLOGY METHOD 03/30/2024 7:26 AM [facility] Basophils Relative 0.7 % LAB HEMETOLOGY METHOD 03/30/2024 7:26 AM [facility] Immature Granulocytes Relative 0.5 % LAB HEMETOLOGY METHOD 03/30/2024 7:26 AM [facility] Neutrophils Absolute 10.62(H) 1.50 - 7.00 K/mcL LAB HEMETOLOGY METHOD 03/30/2024 7:26 AM [facility] Lymphocytes Absolute 1.84 1.00 - 5.00 K/mcL LAB HEMETOLOGY METHOD 03/30/2024 7:26 AM [facility] Monocytes Absolute 1.14(H) 0.20 - 1.00 K/mcL LAB HEMETOLOGY METHOD 03/30/2024 7:26 AM [facility] Eosinophils Absolute 0.08 0.00 - 0.50 K/mcL LAB HEMETOLOGY METHOD 03/30/2024 7:26 AM [facility] Basophils Absolute 0.09 0.00 - 0.20 K/[facility] LAB HEMETOLOGY METHOD 03/30/2024 7:26 AM EST [facility] Immature Granulocytes Absolute 0.07(H) 0.00 - 0.03 K/[facility] LAB HEMETOLOGY METHOD 03/30/2024 7:26 AM EST [facility] Blood Venous blood specimen / Unknown Venipuncture / Unknown 03/30/2024 6:02 AM EST 03/30/2024 7:03 AM EST Krystle COLON LAB BLOOD ORDERABLES Final Resu lt [facility] [address] [place] [address], * Borrelia burgdorferi antibody (03/30/2024 6:02 AM EST) Only the most recent of2 resultswithin the time period is included. Pathologist [facility] Lyme Ab Negative Negative LAB CHEMISTRY METHOD 03/30/2024 8:27 AM EST [facility] Comment: No laboratory evidence of infection [...] COLON LAB BLOOD ORDERABLES Final Resu lt [facility] [address] [place] [address], [place] [phone] * Magnesium (03/30/2024 6:02 AM EST) Only the most recent of2 resultswithin the time period is included. [facility] Magnesium 2.5 1.9 - 2.6 mg/dL LAB CHEMISTRY METHOD 03/30/2024 7:41 AM EST [facility] Blood Venous blood specimen / Unknown Venipuncture / Unknown 03/30/2024 6:02 AM EST 03/30/2024 7:03 AM EST Krystle COLON LAB BLOOD ORDERABLES Final Resu lt Performing Organization Address City/[facility]/ZIP Co de Phone Number [facility]) [facility] [address] [place] [address], [place] [phone] * ECG 12 lead (03/29/2024 10:46 PM EST) Only the most recent of3 resultswithin the time period is included. Ventricular Rate ECG 81 BPM GEMUSE Atrial Rate 85 BPM GEMUSE QRS Duration 168 ms GEMUSE Q-T Interval 470 ms GEMUSE QTc 545 ms GEMUSE R [place] -52 degrees GEMUSE T [place] 98 degrees GEMUSE ECG Interpretation Ventricular-pa juany rhythm Abnormal ECG When compared with ECG of 29-MAR-2024 13:54, Electronic ventricular pacemaker has replaced Sinus rhythm Vent. rate has increased BY ??51 BPM Confirmed by HESHAM PALACIO ([id number]) on 03/31/2024 9:39:34 AM GEMUSE 03/29/2024 10:4 6 PM EST 03/31/2024 9:39 AM EST Kim COLON ECG ORDERABLES Final Resul t Performing Organization Address City/[facility]/ZIP Co de Phone Number GEMUSE * [place] INSERTION NON-TUNNELED CENTRALLY INSERTED CENTRAL VENOUS CATH [...] damage and pneumothorax ??Alternatives discussed: ??No treatment Bethesda protocol: ??Patient identity confirmed: ??Verbally with patient [...] Signed Date: 03/30/2024 07:29 ET Workstation ID: [id number] Transcribed By: Self Edit Transcribed Date: 03/30/2024 [...] Signed Date: 03/30/2024 07:29 ET Workstation ID: [id number] Transcribed By: Self Edit Transcribed Date: 03/30/2024 07:27 ET Krystle COLON IMG XR PROCEDURES Final Result * (ABNORMAL) Troponin I high sensitivity (03/29/2024 1:55 PM EST) Only the most recent of2 resultswithin the time period is included. Pathologist [facility] High Sensitivity Troponin I 100(H) <=54 ng/L LAB CHEMISTRY METHOD 03/29/2024 2:48 PM EST [facility] Blood Venous blood specimen / Unknown Venipuncture / Unknown 03/29/2024 1:55 PM EST 03/29/2024 2:21 PM EST Narrative [facility] - 03/29/2024 2:48 PM EST High levels of biotin in samples may falsely decrease hsTroponin values. ??Use caution when interpreting hsTroponin results in patients taking biotin who exhibit renal impairment (eGFR <60) or in patients taking more than 20 mg/day of biotin. Suzi Corrales MD LAB BLOOD ORDERABLES Final Res ult Performing Organization Address City/[facility]/ZIP Co de Phone Number [facility] [address] [place] [address], [place] [phone] * (ABNORMAL) Thyroid stimulating hormone with reflex to free t4 and free t3 (TSH Reflex) (03/29/2024 12:41 PM EST) [facility] TSH 16.33(H) 0.40 - 4.00 mcIU/mL LAB CHEMISTRY METHOD 03/29/2024 1:46 PM EST [facility] Blood Venous blood specimen / Unknown Venipuncture / Unknown 03/29/2024 12:41 PM EST 03/29/2024 12:53 PM EST Diego Rivas DO LAB BLOOD ORDERABLES Final Result Performing Organization Address City/[facility]/ZIP Co de Phone Number [facility] [address] [place] [address], [place] [phone] * Free thyroxine with reflex to free triiodothyronine (03/29/2024 12:41 PM EST) [facility] Free T4 1.48 0.70 - 1.80 ng/dL LAB CHEMISTRY METHOD 03/29/2024 2:18 PM EST [facility] Blood Venous blood specimen / Unknown Venipuncture / Unknown 03/29/2024 12:41 PM EST 03/29/2024 12:53 PM EST Diego Rivas DO LAB BLOOD ORDERABLES Final Result Performing Organization Address [facility]/ZIP Co de Phone Number [facility] [address] [place] [address], [place] [phone] * (ABNORMAL) Triiodothyronine free (03/29/2024 12:41 PM EST) T3, Free 186(L) 230 - 420 pcg/dL LAB CHEMISTRY METHOD 03/29/2024 2:55 PM EST [facility] Blood Venous blood specimen / Unknown Venipuncture / Unknown 03/29/2024 12:41 PM EST 03/29/2024 12:53 PM EST us Diego Rivas DO LAB BLOOD ORDERABLES Final Result Performing Organization Address [facility] Co de Phone Number [facility] [address] [place] [address], [place] [phone] * (ABNORMAL) B-type natriuretic peptide (03/29/2024 12:41 PM EST) BNP 204(H) <=100 pcg/mL LAB CHEMISTRY METHOD 03/29/2024 1:40 PM EST [facility] Blood Venous blood specimen / Unknown Venipuncture / Unknown 03/29/2024 12:41 PM EST 03/29/2024 12:52 PM EST us Diego Rivas DO LAB BLOOD ORDERABLES Final Result Performing Organization Address City/[facility]/ZIP Co de Phone Number [facility] [address] [place] [address], [place] [phone] * Lipase (03/29/2024 12:41 PM EST) Pathologist [facility] Lipase 45 13 - 75 unit/L LAB CHEMISTRY METHOD 03/29/2024 1:24 PM EST [facility] Blood Venous blood specimen / Unknown Venipuncture / Unknown 03/29/2024 12:41 PM EST 03/29/2024 12:53 PM EST Diego Rivas DO LAB BLOOD ORDERABLES Final Result [facility] [address] [place] [address], * Hemoglobin A1c (03/29/2024 12:41 PM EST) [facility] Hemoglobin A1C 6.1 <6.5 % LAB CHEMISTRY METHOD 03/30/2024 12:28 PM EST [facility] Mean Bld Glu Estim. 128 mg/dL LAB CHEMISTRY METHOD 03/30/2024 12:28 PM [facility] Blood Venous blood specimen / Unknown Venipuncture / Unknown 03/29/2024 12:41 PM EST 03/29/2024 12:53 PM EST Kim COLON LAB BLOOD ORDERABLES Final Result [facility] [address] [place] [address], [place] [phone] * (ABNORMAL) Comprehensive metabolic panel (03/29/2024 12:41 PM EST) [facility] Sodium 134 133 - 145 mmol/L LAB CHEMISTRY METHOD 03/29/2024 1:24 PM [facility] Potassium 3.8 3.5 - 5.5 mmol/L LAB CHEMISTRY METHOD 03/29/2024 1:24 PM [facility] Chloride 102 96 - 110 mmol/L LAB CHEMISTRY METHOD 03/29/2024 1:24 PM [facility] CO2 25 21 - 32 mmol/L LAB CHEMISTRY METHOD 03/29/2024 1:24 PM [facility] Anion Gap 7 3 - 11 LAB CHEMISTRY METHOD 03/29/2024 1:24 PM [facility] Glucose 154(H) 70 - 100 mg/dL LAB CHEMISTRY METHOD 03/29/2024 1:24 PM [facility] BUN 25 5 - 25 mg/dL LAB CHEMISTRY METHOD 03/29/2024 1:24 PM [facility] Creatinine 1.52(H) 0.50 - 1.10 mg/dL LAB CHEMISTRY METHOD 03/29/2024 1:24 PM [facility] eGFR 33(L) >=60 mL/min/1. 73m2 LAB CHEMISTRY METHOD 03/29/2024 1:24 PM [facility] Comment:Calculation based on the??Chronic Kidney Disease Epidemiology Collaboration (CKD-EPI) equation refit??without adjustment for race. BUN/Creatinine Ratio 16.4 LAB CHEMISTRY METHOD 03/29/2024 1:24 PM [facility] Calcium 9.4 8.5 - 10.5 mg/dL LAB CHEMISTRY METHOD 03/29/2024 1:24 PM [facility] AST (SGOT) 17 10 - 42 unit/L LAB CHEMISTRY METHOD 03/29/2024 1:24 PM [facility] ALT (SGPT) 31 10 - 60 unit/L LAB CHEMISTRY METHOD 03/29/2024 1:24 PM [facility] Alkaline Phosphatase 40(L) 42 - 121 unit/L LAB CHEMISTRY METHOD 03/29/2024 1:24 PM [facility] Total Protein 6.5 6.0 - 8.0 g/dL LAB CHEMISTRY METHOD 03/29/2024 1:24 PM [facility] Albumin 3.5 3.2 - 5.0 g/dL LAB CHEMISTRY METHOD 03/29/2024 1:24 PM EST [facility] Total Bilirubin 0.8 0.0 - 1.4 mg/dL LAB CHEMISTRY METHOD 03/29/2024 1:24 PM EST [facility] Blood Venous blood specimen / Unknown Venipuncture / Unknown 03/29/2024 12:41 PM EST 03/29/2024 12:53 PM EST us Diego Rivas DO LAB BLOOD ORDERABLES Final Result [facility] [address] [place] [address], * [place] CRITICAL CARE 30-74 MINUTES (03/29/2024 11:35 AM [...] Result from Last 3 Months Insurance MEDICARE [facility] Advance Directives * Full Code - Confirmed [...] currently active code status orders. Care Teams Maitre D' Relationship Specialty Start Date End Date Criss Davis MD [address] [place] [phone] PCP - General Internal Medicine 03/29/24
--- OUTSIDE RECORDS SUMMARY | 2024-06-02 14:35 | XMS_ITS | Encounter Summary ---
Author Organization [employer] Address [address] [place] [address] Care Team Providers Care Drying Tumbler Operator Name Role Phone Criss Davis MD Primary Care Provider Reason for Visit * Reason Onset Date Comments Carotid Ultrasound Results 05/12/2024 Encounter Details Date Type Department Care Team (Late st Contact Info) Description 05/12/[address] [facility] - [address] [place] [phone] Cee Sena NP [address] [place] [phone] Carotid Ultrasound Results Social History Tobacco Use [...] Please give her a call back at [phone]. documented in this encounter Plan of Treatment Upcoming Encounters Date Type Department Care Team (Late st Contact Info) Description 07/06/2024 3:30 PM EDT Ancillary Procedure [facility] Cardiology [facility] - [address] [place] [address] 11/09/2024 2:40 PM EDT Office Visit [facility] - [address] [place] [address] Cee Sena NP [address] [place] [address] 04/25/2025 4:00 PM EST Ancillary Procedure [facility] - [address] [place] [address] documented as of this encounter Visit Diagnoses Not on filedocumented in this encounter Care Teams Drying Tumbler Operator Relationship Specialty Start Date End Date Criss Davis MD [address] [place] [phone] PCP - General Internal Medicine 03/29/24 documented as of this encounter
--- OUTSIDE RECORDS SUMMARY | 2024-06-02 14:35 | XMS_ITS | Encounter Summary ---
Author Organization [facility] Address [address] [facility] [address] [place] [address] Phone Care Team Providers Care Compliance Tester Name Role Phone Criss Davis MD Primary Care Provider Encounter Details Date Type Department Care Team (Late st Contact Info) Description 04/07/2022 Telephone [facility] [address] [facility] [address] [place] [phone] Jesse Mercado MD Social History Tobacco Use Types Packs/Day Years Used Date Smoking Tobacco: Former Cigarettes Q uit: 03/16/1959 Smokeless Tobacco: Never Alcohol Use Standard Drinks/Week Comments No 0 (1 standard drink = 0.6 oz pur e alcohol) Comments Unknown Sex and Gender Information Value Date Recorded Sex Assigned at Not on file Legal Sex Female 4:32 PM EST Gender Identity Not on file Sexual Orientation Not on file COVID-19 Exposure Response Date Recorded In the last 10 days, have yo u been in contact with someone who was confirmed or suspected to have Coronavirus/COVID-19? No / Unsure 04/01/2022 6:34 PM EST documented as of this encounter Miscellaneous Notes * Telephone Encounter - Shaina Farfan - 04/07/2022 10:50 AM EST Pt called, she was referred to an endo surgeon during her last visit and she would like to put thaton hold for now. She will be seeing an pillow filler first and they will decide if surgery is thenext step. documented in this encounter Plan of Treatment Not on file documented as of this encounter Visit Diagnoses Not on filedocumented in this encounter Care Teams Compliance Tester Relationship Specialty Start Date End Date Criss Davis MD [address] PCP - General 03/26/20 documented as of this encounter
--- OUTSIDE RECORDS SUMMARY | 2024-06-02 14:35 | XMS_ITS | Clinical Summary ---
Author Organization [facility] Address [address] [facility] [address] [place] [address] Phone Care Team Providers Care Lotteries Agent Name Role Phone Criss Davis MD Primary Care Provider Allergies Active Allergy Reactions Criticality Noted Date Comments Felodipine 03/03/2022 Lisinopril 03/03/2022 Statins 03/03/2022 Medications calcitriol (ROCALTROL) 0.25 MCG capsule Take 1 capsule by mouth 4 (four) times a week 2 Active esomeprazole (NexIUM) [address] capsule Take 1 capsule by mouth if needed 0 Active losartan (COZAAR) 50 MG tablet Take 1 tablet by mouth 1 (one) time each day 2 Active Synthroid 88 MCG tablet Take 1 tablet by mouth 1 (one) time each day 2 Active ferrous sulfate 325 (65 Fe) MG tablet Take 325 mg by mouth 1 (one) time each day with breakfast Active predniSONE (DELTASONE) 1 MG tablet Take 3 mg by mouth 1 (one) time each day 3 Active Active Problems Problem Noted Date Diagnosed Date Parathyroid adenoma 08/12/2022 Patient encounter status 07/21/2022 Hiatal hernia 04/03/2022 Osteopenia 04/03/2022 Abnormal gait 03/04/2022 Contusion of lower leg 03/04/2022 Epigastric discomfort 03/04/2022 Hormone increase 03/04/2022 Chronic kidney disease stage 3 03/03/2022 Hypertensive disorder 03/03/2022 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 05/04/2021 Primary hyperparathyroidism 03/03/2022 Resolved Problems Problem Noted Date Diagnosed Date Resolved Date Depressive disorder 03/03/2022 03/03/20 22 Dyslipidemia 03/03/2022 03/03/2022 Gastroesophageal reflux disease 03/03/2022 03/03/2022 Hypothyroidism 03/03/2022 03/03/2022 Iron deficiency anemia 03/03/202203/03 Obesity 03/03/2022 03/03/2022 Paresthesia of hand 03/03/2022 03/03/20 Polymyalgia rheumatica 03/03/202203/03 Primary gonarthrosis, 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 03/03/2022 Seasonal allergic rhinitis 03/03/2022 1 05/04/2021 Type 2 diabetes mellitus 03/03/2022 Immunizations Name Administration Dates Next Due Influenza Whole 11/26/2018 Pfizer SARS-COV-2 12/11/2020,05/11/2020,04/20/19 21 Pneumococcal Conjugate 13-Valent 08/27/2015 Pneumococcal Polysaccharide 09/19/2016 Tdap 09/19/2016 Family History Medical History Relation Comments Cancer Mother Cancer Mother's Brother Cancer Mother's Sister Relation Status Comments Father Unknown Mother Mother's Brother Mother's Sister Social History Tobacco Use Types Packs/Day Years Used Date Smoking Tobacco: Former Cigarettes Q uit: 03/16/1959 Smokeless Tobacco: Never Tobacco Cessation:Counseling Given: Not Answered Alcohol Use Standard Drinks/Week Comments No 0 (1 standard drink = 0.6 oz pur e alcohol) Comments Unknown Sex and Gender Information Value Date Recorded Sex Assigned at Not on file Legal Sex Female 4:32 PM EST Gender Identity Not on file Sexual Orientation Not on file Last Filed Vital Signs Vital Sign Reading Time Taken Comments Blood Pressure 120/62 08/12/2022 4:08 PM EDT Pulse 60 08/12/2022 4:08 PM EDT Temperature - - Respiratory Rate - - Oxygen Saturation - - Inhaled Oxygen Concentration - - Weight 71.8 kg (158 lb 6.4 oz) 08/12/2022 4:08 P M EDT Height - - Body Mass Index - - Plan of Treatment Health Maintenance Due Date Last Done Comments Diabetes: Ophthalmology Exam 05/08/2020 Diabetes: Pedal Pulse Checked 05/08/2020 Diabetes: Sensory Foot Exam 05/08/2020 Diabetes: Visual Foot Exam 05/08/2020 Influenza Vaccine (#1) 2023 11/26/2018 Diabetes: Hemoglobin A1C 06/27/2024 03/29/2024 Pneumococcal Vaccine: 65+ Years Completed 09/19/2016, 08/27/2015 Hepatitis B Vaccine Aged Out No longe r eligible based on patient's age to complete this topic Insurance MEDICARE [facility]IC[facility] Care Teams Lotteries Agent Relationship Specialty Start Date End Date Criss Davis MD [address] PCP - General 03/26/20
--- OUTSIDE RECORDS SUMMARY | 2024-06-02 14:35 | XMS_ITS | Encounter Summary ---
Author Organization [facility] Address [address] [place] [address] Care Team Providers Care Childrens Club Attendant Name Role Phone Criss Davis MD Primary Care Provider Reason for Visit * Imaging (Routine) - Closed Specialty Diagnoses / Procedures Referred By Contac t Referred To Contact Diagnoses Visual disturbance Weakness Pre-syncope Procedures Vascular US duplex carotid bilateral Cee Sena NP [address] [place] [address] Phone: tel: fax: [facility] Referral ID Status Reason Start Date Expiration Date Visits Re quested Visits Authorized [id number] Closed 04/25/2024 04/25/2025 1 1 Encounter Details Date Type Department Care Team (Latest Contact Info) Description 05/05/2024 12:30 PM EST Ancillary Procedure [facility] - [facility] [address] [place] [address] Visual disturbance; Weakness; Pre-syncope Social [...] Description 07/06/2024 3:30 PM EDT Ancillary Procedure [facility] Cardiology [facility] - [address] [place] [phone] 11/09/2024 2:40 PM EDT Office Visit [facility] - [address] [place] [phone] Cee Sena, ANANYA [address] [place] [phone] 04/25/2025 4:00 PM EST Ancillary Procedure [facility] - [address] [place] [phone] documented as of this encounter Procedures Procedure [...] Interpretation was done according to the [place] Symptomatic Carotid Endarterectomy Trial (NASCET) criteria ??and [...] heterogeneous plaque. The ECA has heterogeneous plaque. Assurance Senior Details A solorio scale, color and doppler [...] device documented in this encounter Care Teams Childrens Club Attendant Relationship Specialty Start Date End Date Criss Davis MD [address] [place] [address] PCP - General Internal Medicine 03/29/24 documented as of this encounter
--- OUTSIDE RECORDS SUMMARY | 2024-06-02 14:35 | XMS_ITS | Encounter Summary ---
Author Organization [facility] Address [address] [place] [address] Care Team Providers Care Key Maker Name Role Phone Criss Davis MD Primary Care Provider Reason for Visit * Reason Onset Date Comments Appointment 05/05/2024 Coronary CTA Encounter Details Date Type Department Care Team (Late st Contact Info) Description 05/05/2024 Telephone [facility] - [address] [place] [phone] Cee Sena NP [address] [place] [phone] Appointment (Coronary CTA) Social History Tobacco Use [...] 01:44 PM Modules accepted: Orders * Hector Wliliamson - 05/06/2024 1:32 PM EST Pt is scheduled for a Coronary CTA scan on 07/06/24, 2:00pm arr., 3:30pm, @[facility]. Order and ov note faxed. Letter mailed and lab slip mailed. * Hector Williamson - 05/05/2024 11:27 AM EST Order, demos and ov note have been faxed to [facility] scheduling to schedule pt for a Coronary CTA scan. Waiting for appointment info. documented in this encounter Plan of Treatment Upcoming Encounters Date Type Department Care Team (Late st Contact Info) Description 07/06/2024 3:30 PM EDT Ancillary Procedure [facility] Cardiology [facility] - [address] [place] [address] 11/09/2024 2:40 PM EDT Office Visit [facility] - [address] [place] [address] Cee Sena NP [address] [place] [address] 04/25/2025 4:00 PM EST Ancillary Procedure [facility] - [address] [place] [address] Scheduled Orders Name Type Priority Associated Diagnoses [...] device documented in this encounter Care Teams Key Maker Relationship Specialty Start Date End Date Criss Davis MD [address] [place] [phone] PCP - General Internal Medicine 03/29/24 documented as of this encounter
== END 2024-06-02 13:02 | disposition home or self-care (01) ==
LOC: HO.HKAS 12:09
PROVIDERS: PCP Internal Medicine; Visit Provider Internal Medicine Nephrology
DX: D35.1 Benign neoplasm of parathyroid gland (principal); I10 Essential (primary) hypertension
CPT/HCPCS: 99214

== ENCOUNTER 2024-08-09 13:39 | Outpatient (AMB) | payer MEDICARE, OTHER, SELFPAY ==
[2024-08-09 13:41] VITALS: BP 122/60; PULSE 98; O2SAT 71; BMI 30.8
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
--- OUTSIDE RECORDS SUMMARY | 2024-08-09 13:52 | XMS_ITS | Encounter Summary ---
Author Organization [facility] Address [address] [facility] [address] [place] [address] Phone Care Team Providers Care Irrigation Laborer Name Role Phone Criss Davis MD Primary Care Provider Encounter Details Date Type Department Care Team (Late st Contact Info) Description 04/07/2022 Telephone [facility] [address] [facility] [address] [place] [phone] Jesse Mercado MD Social History Tobacco Use [...] for now. She will be seeing an automobile body worker first and they will decide if surgery is thenext step. documented in this encounter Plan of Treatment Not on file documented as of this encounter Visit Diagnoses Not on filedocumented in this encounter Care Teams Irrigation Laborer Relationship Specialty Start Date End Date Criss Davis MD [address] PCP - General 03/26/20 documented as of this encounter
== END 2024-08-09 14:46 | disposition home or self-care (01) ==
LOC: HO.ENCR 13:40
PROVIDERS: PCP Internal Medicine; Visit Provider Student in an Organized Health Care Education/Training Program
DX: E27.40 Unspecified adrenocortical insufficiency (principal); Z79.52 Long term (current) use of systemic steroids
CPT/HCPCS: 99204

== ENCOUNTER → 2024-08-09 13:39 | Outpatient (BNVA) | payer MEDICARE, OTHER, SELFPAY | PROVIDERS: PCP Internal Medicine; Visit Provider Student in an Organized Health Care Education/Training Program | DX: E27.40 Unspecified adrenocortical insufficiency (principal); Z79.52 Long term (current) use of systemic steroids | CPT/HCPCS: 99202 ==

== ENCOUNTER 2024-09-07 13:51 | Outpatient (AMB) | payer MEDICARE, OTHER, SELFPAY ==
--- NOTE | 2024-09-07 13:53 | A.OFFVIS_ITS ---
Vital Signs 09/07/24 13:54 Height 4 ft 11 in Weight 149 lb BMI 30.1 BP 100/60 Blood Pressure Location Lt brachial Position Sitting Pulse 98 Pulse Source Pulse Oximeter Pulse Oximetry (%) 98 Oxygen Delivery Method Room Air Intake Visit Reasons: 3 Months Intake Note: Patient presents today for PMR. Allergies felodipine (From Plendil) Allergy (Verified 09/07/24 13:57) Unknown HPI HPI 3 Months: Details: BP low the other day. She held losartan yesterday. She felt great yesterday. She has been feeling lethargic. Appt with conical mixer. She had ESR and CRP checked twice this month, which were normal. Reviewed patient's results on her phone from patient [facility]. Since being on higher dose of prednisone her shoulder pain in general pain has resolved. She has intermittent neck and shoulder pain. She continues to work with physical therapy to improve range of motion in her left shoulder. [facility] Medical History History of pacemaker Pacemaker Type 2 diabetes mellitus Seasonal allergic rhinitis Polymyalgia rheumatica Paresthesia of hand Osteopenia Obesity Iron deficiency anemia Hypothyroidism Hiatal hernia GERD (gastroesophageal reflux disease) Essential (primary) hypertension Dyslipidemia Depressive disorder Chronic kidney disease Anemia Surgical History History of cataract surgery History of cholecystectomy Family History Mother Cancer Maternal Aunt Cancer Maternal Uncle Cancer Social History Alcohol intake: never Patient Tobacco Use Status: Never used Tobacco Physical Exam Vital Signs: Last Vital Signs Pulse 98 09/07/24 13:54 BP 100/60 09/07/24 13:54 Pulse Ox 98 09/07/24 13:54 Oxygen Delivery Method Room Air 09/07/24 13:54 BMI result Body Mass Index 30.1 Const Other: General: Comfortable CVS: RRR Respiratory: clear to auscultation bilaterally. Good respiratory effort Skin: No lesions seen MSK: Patient is able to get up from seated position to standing position without using arms on armrest. Left shoulder active range of motion is 60 degrees. Passive range of motion is 160 degrees with limited internal and external rotation. Right shoulder range of motion is normal. No synovitis of any joint. Normal range of motion of hands and elbows. Limited external rotation of bilateral hips. Knee flexion 90 degrees of bilateral knees. Assessment & Plan Assessment & Plan (1) Polymyalgia rheumatica: Comment: Relapse disease with improvement on higher dose of prednisone 10 mg daily. Inflammatory markers have normalized on 2 separate occasions checked this month. We discussed slow tapering of prednisone to prevent relapse disease. If she develops another relapse while tapering prednisone, treatment with sarilumab is indicated. She saw endocrinology for concern of adrenal insufficiency who states that due to long-term use of prednisone she should be presumed to be adrenally insufficient. Rheumatology history: Diagnosed at age 59. She has been on long-term prednisone 5 mg daily. PMR is controlled on prednisone 5 mg daily clinically. Left shoulder pain is a result of mild adhesive capsulitis. She has difficulty tapering less than prednisone 3 mg daily with recurrence of upper body pain and increased fatigue. I am concerned that she has adrenal insufficiency is contributing to increased fatigue and feeling of unwell when she tapers prednisone to less than 3 mg daily. She has seen endocrinology 08/09/2024. Code(s): M35.3 - Polymyalgia rheumatica Category: Medical Plan: Decrease prednisone 1 mg every month I will check inflammatory markers next visit I am requesting formal report of ESR and CRP from lab [facility] performed twice in August Patient reports she has osteopenia. I have asked her to contact her PCP to recheck bone density if it has been more than 2 years. I have also asked her to bring a copy of her last bone density to next appointment. She will be seeing PCP next month. Continue physical therapy to improve range of motion of upper extremity If she continues to have fatigue, I recommend that she have further workup for sleep apnea with sleep study. Defer to PCP Return to clinic in 3 months (2) On prednisone therapy: Code(s): Z79.52 - [facility] (current) use of systemic steroids Category: Medical Plan: See above (3) Adhesive capsulitis of left shoulder: Code(s): M75.02 - Adhesive capsulitis of left shoulder Category: Medical Plan: Continue PT (4) Adrenal insufficiency: Code(s): E27.40 - Unspecified adrenocortical insufficiency Category: Medical Plan: We will monitor clinically as prednisone is being tapered slowly Medications: New prednisone Take 9 tablets daily 1 month, 8 tablet daily 1 month, 7 tablets daily 1 month. take prednisone with food 1 mg PO DIRECTED 720 tabs 0RF Coding Level of Care Code Est Pt Level 4 (18853) Complex EM visit Add On G2211 Diagnoses Polymyalgia rheumatica M35.3 On prednisone therapy Z79.52 Adhesive capsulitis of left shoulder M75.02 Adrenal insufficiency E27.40
[2024-09-07 13:54] VITALS: BP 100/60; PULSE 98; O2SAT 98; BMI 30.1
--- OUTSIDE RECORDS SUMMARY | 2024-09-07 16:30 | XMS_ITS | Encounter Summary ---
Author Organization [facility] Address [address] [address] [address] [place] [address] Phone Care Team Providers Care Tableman Name Role Phone Criss Davis MD Primary Care Provider Encounter Details Date Type Department Care Team (Late st Contact Info) Description 04/07/2022 Telephone [facility] [address] [facility] [place] [phone] Jesse Mercado MD Social History Tobacco Use [...] for now. She will be seeing an plant anatomist first and they will decide if surgery is thenext step. documented in this encounter Plan of Treatment Not on file documented as of this encounter Visit Diagnoses Not on filedocumented in this encounter Care Teams Tableman Relationship Specialty Start Date End Date Criss Davis MD [address] PCP - General 03/26/20 documented as of this encounter
== END 2024-09-07 14:37 | disposition home or self-care (01) ==
LOC: HO.RHES 13:51
PROVIDERS: PCP Internal Medicine; Visit Provider Internal Medicine Rheumatology
DX: M35.3 Polymyalgia rheumatica (principal); Z79.52 Long term (current) use of systemic steroids; M75.02 Adhesive capsulitis of left shoulder; E27.40 Unspecified adrenocortical insufficiency
CPT/HCPCS: 99214; G2211

== ENCOUNTER → 2024-09-07 13:51 | Outpatient (BNVA) | payer MEDICARE, OTHER, SELFPAY | PROVIDERS: PCP Internal Medicine; Visit Provider Internal Medicine Rheumatology | DX: M35.3 Polymyalgia rheumatica (principal); M75.02 Adhesive capsulitis of left shoulder; E27.40 Unspecified adrenocortical insufficiency; Z79.52 Long term (current) use of systemic steroids | CPT/HCPCS: 99212 ==

== ENCOUNTER 2024-12-01 15:45 | Outpatient (AMB) | payer MEDICARE, OTHER, SELFPAY ==
--- NOTE | 2024-12-01 15:54 | HO.NEPHOV_ITS ---
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 She had a pacemaker . She is following up with [facility]. She has seen Dr Lucien Killian. She has been on prednisone for some time for PMR . She was also seen by Endocrinology to R/O hypoadrenalism .She remains on calcitriol which is keeping her PTH at goal. She does not have any nephrolithiasis, flank pain, hematuria. Her serum calcium has been normal. She had sestamibi scan in the past which showed parathyroid adenoma for which she had seen endocrine surgeon. She does not have any chest pain, shortness of breath, paroxysmal nocturnal dyspnea, orthopnea, pedal edema or orthostatic symptoms. She was accompanied by her daughter in the office today. [facility] Medical History (Updated 09/21/24 @ 21:21 by Lucien Killian MD) History of pacemaker Pacemaker Type 2 diabetes mellitus Seasonal allergic rhinitis Polymyalgia rheumatica Paresthesia of hand Osteopenia Obesity Iron deficiency anemia Hypothyroidism Hiatal hernia GERD (gastroesophageal reflux disease) Essential (primary) hypertension Dyslipidemia Depressive disorder Chronic kidney disease Anemia Surgical History History of cataract surgery History of cholecystectomy Family History Mother Cancer Maternal Aunt Cancer Maternal Uncle Cancer Social History Alcohol intake: never Patient Tobacco Use Status: Never used Tobacco Review of Systems Const All systems reviewed & are unremarkable except as noted in HPI and below Physical Exam Vital Signs: Last Vital Signs Pulse 74 12/01/24 16:02 BP 130/74 12/01/24 16:02 Pulse Ox 94 12/01/24 16:02 Oxygen Delivery Method Room Air 12/01/24 16:02 BMI result Body Mass Index 30.3 Const General: comfortable and no acute distress Orientation/consciousness: patient oriented x3 HEENT Head: Yes normocephalic Mouth: Normal oral and palatal mucosa present Eyes EOM: EOMs intact bilaterally Neck Neck: Yes supple Resp Auscultation: clear to auscultation bilaterally Cardio Jugular venous distension: no JVD Rate: regular rate GI Palpation (GI): Soft to palpation Auscultation: normal bowel sounds General: Yes no CVA tenderness Back/Spine/Pelvis Back: no CVA tenderness Skin General skin exam: no rashes or lesions noted Neuro General: patient oriented x3 and moves all extremities Extrem General: Yes no pedal edema Assessment & Plan Assessment & Plan (1) Essential (primary) hypertension: Code(s): I10 - Essential (primary) hypertension Category: Medical (2) Parathyroid adenoma: Code(s): D35.1 - Benign neoplasm of parathyroid gland Category: Medical Plan Her serum creatinine had been stable. Her blood pressure is at goal in the office . She is tolerating angiotensin receptor wolfgang. Her serum potassium has been normal. Her serum calcium is within acceptable limits. Her PTH had been stable. She can continue calcitriol for now but shall consider cinacalcet , if indicated. (Sestamibi scan done in the past showed parathyroid adenoma. She had seen endocrine surgeon as well). She maintains good hydration. She avoids nonsteroidal anti-inflammatories. I did not make any medication changes today. All her and her daughter's questions were answered. Follow-up appointment given Orders: Orders Parathyroid Hormone Intact 7 Months D35.1 - Benign neoplasm of parathyroid gland, I10 - Essential (primary) hypertension Creatinine 7 Months D35.1 - Benign neoplasm of parathyroid gland, I10 - Essential (primary) hypertension Calcium 7 Months D35.1 - Benign neoplasm of parathyroid gland, I10 - Essential (primary) hypertension Blood Urea Nitrogen 7 Months D35.1 - Benign neoplasm of parathyroid gland, I10 - Essential (primary) hypertension Electrolytes 7 Months D35.1 - Benign neoplasm of parathyroid gland, I10 - Essential (primary) hypertension Phosphorus 7 Months D35.1 - Benign neoplasm of parathyroid gland, I10 - Essential (primary) hypertension Coding Level of Care Code Est Pt Level 4 (60811) Diagnoses Essential (primary) hypertension I10 Parathyroid adenoma D35.1
[2024-12-01 16:02] VITALS: BP 130/74; PULSE 74; O2SAT 94; BMI 30.3
--- OUTSIDE RECORDS SUMMARY | 2024-12-01 16:58 | XMS_ITS | Encounter Summary ---
Author Organization [facility] Address [address] [place] [address] Care Team Providers Care Metal Baler Name Role Phone Criss Davis MD Primary Care Provider Reason for Visit * Reason Onset Date Comments Appointment 09/15/2024 Coronary CTA Encounter Details Date Type Department Care Team (Late st Contact Info) Description 09/15/2024 Telephone [facility] - [facility] [address] [facility] [address] [place] [address] Cee Sena NP [address] [place] [address] [place] [address] Social History Tobacco Use Types Packs/Day Years Used Date Smoking Tobacco: Former Cigarettes 0.5 43.7 S tarted: 1982 Passive Smoke Exposure: Past Smokeless Tobacco: Never Comments:Quit 1960 Alcohol Use Standard Drinks/Week Comments Not Currently 0 (1 standard drink = 0.6 oz pur e alcohol) Housing Instability Answer Date Recorde d Are you worried that in the next 2 months you may not have stable housing? No 06/28/2024 Food Access & Nutrition Answer Date Rec orded Do you have access to a vari ety of food including fruits and vegetables? Yes 06/28/2024 Access to Healthcare Answer Date Record ed Within the last 3 months, paco w many times did you visit the emergency department for your medical care? 2 06/28/2024 Health Literacy Answer Date Recorded How often do you need to hav e someone help you when you read instructions, pamphlets, or other written material from your doctor or pharmacy? Rarely 06/28/2024 Caregiver: How often do you need to have someone help you when you read instructions, pamphlets, or other written material from your doctor or pharmacy? Not on file 06/28/2024 Financial Risk Answer Date Recorded How hard is it for you to pa y for the very basics like food, housing, medical care, and air conditioning / heating? Somewhat hard 06/28/2024 Transportation Answer Date Recorded Has the lack of transportati on kept you from meetings, work, or from getting things needed for daily living? No Has the lack of transportati on kept you from medical appointments or from getting medications? No 06/28/2024 Social Isolation Answer Date Recorded How often do you feel lonely or isolated from th ose around you? Rarely 06/28/2024 Food Risk Answer Date Recorded Within the past 12 months we worried whether our food would run out before we got money to buy more. Never true 06/28/2024 Within the past 12 months th e food we bought just didn't last and we didn't have money to get more. Never true 06/28/2024 Dependent Care Answer Date Recorded Do you need help finding or paying for care for your loved ones. For example, child monitor or elderly care for an older adult? No 06/28/2024 Education Answer Date Recorded Do you think completing more education or training, like finishing a GED, going to college, or learning a trade, would be helpful for you? No 06/28/2024 Employment and Income Answer Date Recor ded During the last four weeks, have you been actively looking for work? No 06/28/2024 Living Situation Answer Date Recorded What is your living situation? 0 06/28/2024 Interpersonal Safety Answer Date Record ed Physical Abuse 06/28/2024 Verbal Abuse 06/28/2024 Comments No Sex and Gender Information Value Date Recorded Sex Assigned at Female 03/29/2024 2:45 PM EST Legal Sex Female 7:41 AM EST Gender Identity Female 03/29/2024 2:45 PM EST Sexual Orientation Straight 03/29/2024 2: 45 PM EST documented as of this encounter Progress Notes * Riky Coats MA - 12/01/2024 9:32 AM EDT Noted thank you. * Cee Sena NP - 12/01/2024 8:51 AM EDT CLARY. I did try to call the patient to discuss stress testing with her there was no answer and I left her a voicemail. Because she has a pacemaker and exercise stress test is not an option for her. I did explain in my message that she would have to do a pharmacologic nuclear stress test. I will await callback to further determine what the patient would like to do moving forward thank you * Riky Coats MA - 11/30/2024 2:17 PM EDT Spoke to pt. Pt aware stress is the next option as CT is inconclusive per Jessica Blake she cannot tolerate a nuclear stress test but would be ok with an ETT. Please advise further. Thank you. * Cee Sena NP - 11/29/2024 11:42 AM EDT Unfortunately, her CT was nondiagnostic. Should the patient continue to have symptoms she will needto undergo stress testing. * Hector Williamson - 11/07/2024 9:46 AM EDT Lab results have been faxed to [facility] CT dept * Hector Williamson - 10/05/2024 9:26 AM EDTAddended by: HECTOR WILLIAMSON on: 10/05/2024 09:26 AM Modules accepted: Orders * Hector Williamson - 09/22/2024 9:59 AM EDT Pt is scheduled for a Coronary CTA scan on 11/17/24, 10:00am arr., 11:30am scan, [place]. Order and ov note faxed. Letter and lab slip mailed. * Hector Williamson - 09/15/2024 2:49 PM EDT Order, demos and ov note have been faxed to [facility] scheduling to schedule pt for a Coronary CTA scan. Waiting for appointment. documented in this encounter Plan of Treatment Upcoming Encounters Date Type Department Care Team (Late st Contact Info) Description 04/25/2025 4:00 PM EST Ancillary Procedure [facility] - [address] [place] [address] documented as of this encounter Results * (ABNORMAL) Basic metabolic panel (11/02/2024 11:01 AM EDT) Sodium 139 133 - 145 mmol/L LAB CHEMISTRY METHOD 11/02/2024 12:50 PM [facility] Potassium 4.2 3.5 - 5.5 mmol/L LAB CHEMISTRY METHOD 11/02/2024 12:50 PM [facility] Chloride 101 96 - 110 mmol/L LAB CHEMISTRY METHOD 11/02/2024 12:50 PM [facility] CO2 30 21 - 32 mmol/L LAB CHEMISTRY METHOD 11/02/2024 12:50 PM [facility] Anion Gap 8 3 - 11 LAB CHEMISTRY METHOD 11/02/2024 12:50 PM [facility] Glucose 130(H) 70 - 100 mg/dL LAB CHEMISTRY METHOD 11/02/2024 12:50 PM [facility] BUN 13 5 - 25 mg/dL LAB CHEMISTRY METHOD 11/02/2024 12:50 PM EDT [facility] Creatinine 1.14(H) 0.50 - 1.10 mg/dL LAB CHEMISTRY METHOD 11/02/2024 12:50 PM EDT [facility] eGFR 47(L) >=60 mL/min/1. 73m2 LAB CHEMISTRY METHOD 11/02/2024 12:50 PM EDT [facility] Comment:Calculation based on the Chronic Kidney Disease Epidemiology Collaboration (CKD-EPI) equation refit without adjustment for race. BUN/Creatinine Ratio 11.4 LAB CHEMISTRY METHOD 11/02/2024 12:50 PM EDT [facility] Calcium 10.3 8.5 - 10.5 mg/dL LAB CHEMISTRY METHOD 11/02/2024 12:50 PM T [facility] Blood Venous blood specimen / Unknown Venipuncture / Unknown 11/02/2024 11:01 AM EDT 11/02/2024 11:01 AM EDT us Cee Sena FLAME HARDENING MACHINE SETTER LAB BLOOD ORDERABLES F inal Result [facility] [address] [place] [address], documented in this encounter Visit Diagnoses Diagnosis Chest pain, unspecified type- Primary SOBOE (shortness of breath on exertion) Shortness of breath Encounter for adjustment or management of cardiac device documented in this encounter Care Teams Metal Baler Relationship Specialty Start Date End Date Criss Davis MD [address] [id number] PCP - General Internal Medicine 03/29/24 documented as of this encounter
--- OUTSIDE RECORDS SUMMARY | 2024-12-01 16:58 | XMS_ITS | Clinical Summary ---
Author Organization [facility] Address [address] [place] [phone] Phone Care Team Providers Care Freezer Assistant Name Role Phone Criss Davis MD Primary Care Provider Allergies Active Allergy Reactions Criticality Noted Date Comments Felodipine Numbness 03/29/2024 Medications losartan (COZAAR) 50 mg tablet Take 1 [...] PF, OPHT) Administer into affected eye(s). Active predniSONE (DELTASONE) 2.5 mg tablet Take 3 tablets (7.5 mg total) by mouth 1 (one) time each day. 5 Active aspirin 81 mg EC tablet Take 1 tablet (81 mg total) by mouth 1 (one) time each day. 30 each 11 5 06/30/19 26 Active SUMAtriptan (IMITREX) 50 mg tablet Take 1 tablet (50 mg total) by mouth 1 (one) time if needed for migraine (migraine headache) for up to 9 doses. May repeat dose once in 2 hours if no relief. Do not exceed 2 doses in 24 hours. 9 tablet Active Active Problems Problem Noted Date Diagnosed Date SOBOE (shortness of breath on exertion) 09/06/19 Assessment & Plan (09/08/2024 4:16 PM EDT): Coronary CTA to evaluate for ischemia Orders: CT Angio Heart w 3D Imaging/Function; Future TIA (transient ischemic attack) 06/27/2024 Mobitz II 03/29/2024 CHB (complete heart block) (CMS/HCC V24, CMS/HCC V28) 03/29/2024 Assessment & Plan (04/25/2024 1:25 PM [...] Encounters Date Type Department Care Team Description 09/15/2024 Telephone [facility] - [facility] [address] [place] [phone] Cee Sena NP 09/12/2024 Telephone [facility] - Medical [facility] [address] [place] [address] Cee Sena NP 09/08/2024 3:10 PM EDT Office Visit [facility] [address] [place] [phone] Cee Sena NP Weakness (Primary Dx); Other fatigue; SOBOE (shortness of breath on exertion); Chest pain, unspecified type; Hypomagnesemia 09/02/2024 11:25 AM EDT Ancillary Procedure [facility] [address] [facility] [address] [place] [address] 08/31/2024 Telephone [facility] - [facility] [address] [facility] [address] [place] [address] Cee Sena NP from Last 3 Months Surgical History Surgery Date Site/Laterality Comments CHOLECYSTECTOMY CATARACT EXTRACTION REFRACTIVE SURGERY Left DILATION AND CURETTAGE OF UTERUS Medical History Medical History Date Comments Hypertension Hyperlipidemia CKD (chronic kidney disease) stage 3, GFR 30-59 ml/min [place] [place] [facility] [place] Parathyroid adenoma PMR (polymyalgia rheumatica) [place] [place]) Diabetes mellitus [place] [place], [facility] [place]) diet controlled Hypothyroid Social History Tobacco Use Types Packs/Day Years Used Date Smoking Tobacco: Former Cigarettes 0.5 43.7 S tarted: 1981 Passive Smoke Exposure: Past Smokeless Tobacco: Never Tobacco Cessation:Counseling Given: No Comments:Quit 1959 Alcohol Use Standard Drinks/Week Comments Not Currently [...] Record ed Within the last 3 months, ho w many times did you visit the [...] care for your loved ones. For example, vocational childcare teacher or elderly care for an older adult? [...] Sign Reading Time Taken Comments Blood Pressure 110/80 09/08/2024 3:29 PM EDT Pulse 76 09/08/2024 3:29 PM EDT Temperature 36.5 C (97.7 F) 06/28/2024 3:03 PM EDT Respiratory Rate 16 06/28/2024 3:03 PM EDT Oxygen Saturation 99% 09/08/2024 3:29 PM EDT Inhaled Oxygen Concentration - - Weight 67.6 kg (149 lb) 09/08/2024 3:29 PM EDT Height 149.9 cm (4' 11 ) 07/06/2024 3:31 PM EDT Body Mass Index 30.09 07/06/2024 3:31 PM EDT Plan of Treatment Upcoming Encounters Date Type Department Care Team (Late st Contact Info) Description 04/25/2025 4:00 PM EST Ancillary Procedure [facility] [address] [facility] [address] [place] [phone] Health Maintenance Due Date Last Done Comments Diabetes: Annual Foot Exam 01/23/1950 Diabetes: Annual Retina Eye Exam 01/23/1950 Zoster Vaccines (1 of 2) 1957 RSV Immunization Adult Patients (1 - 1-dose 75+ series) 2013 Depression Screening 03/16/2024 Medicare Annual Wellness Visit 03/29/2024 Osteoporosis Screening (Bone Density Screening) 03/29/2024 COVID-19 Vaccine ( season) 2024 01/13/2022, 08/22/2021, 12/11/2020, Additional history exists Influenza Vaccine (#1) 2024 , 11/25/2022, 11/22/2021, Additional history exists Diabetes: Blood Sugar Control Test (HGBA1C) 12/27/2024 06/27/2024, 03/29/2024 Falls Risk Assessment 06/28/2025 06/28/2024 Social Influencers of Health Screening 06/28/2025 06/28/2024 Hypertension/CHF/CAD Annual BMP Blood Test 11/02/2025 11/02/2024, 09/15/2024, 09/08/2024, Additional history exists DTaP,Tdap,and Td Vaccines (2 - Td or Tdap) 09/19/2026 09/19/2016 Cholesterol Screening (Lipid Panel) 06/28/2029 06/28/2024 Pneumococcal Vaccine: 50+ Years Completed 09/19/2016, 08/27/2015 HIB Vaccines Aged Out No longer eligi [...] age to complete this topic Meningococcal B Vaccine Aged Out No l onger eligible based on patient's age to complete this topic RSV Immunization Patients Under 20 months Aged Out No longer eligible based on patient's age to complete this topic Varicella Vaccines Aged Out No longer eligible based on patient's age to complete this topic Medical Devices Implanted Type Area Press Supervisor Device Identifier Shelf Expiration Date Model / Serial / Lot Lead Pcmk Tendril Sts [id number] - [id number] - [id number] Implanted:Qty: 1 on 03/30/2024 by Uriel Kulkarni MD at [facility] Cardiac Lead N/A: Heart [facility] [id number] 12/13/2026 2088TC/58 / [id number] / Lead Pcmk Tendril Sts [id number] - [id number] - [id number] Implanted:Qty: 1 on 03/30/2024 by Uriel Kulkarni MD at [facility] Cardiac Lead N/A: Heart [facility] [id number] 01/13/2027 2088TC/52 / [id number] / Pcmkr Assurity Mri Dr-Rf Dual - [id number] - [id number] Implanted:Qty: 1 on 03/30/2024 by Uriel Kulkarni MD at [facility] Cardiac Pacemaker Left: Chest Wall [facility] [id number] 07/13/2025 [id number] / [id number] / Abbt-Stju 2272 Assurity Mri(Tm) [id number] Implanted:03/16 by Uriel Kulkarni MD (Quantity not on file) Cardiac Pacemaker Left: Chest [facility] 2272 ASSURITY MRI(TM) / [id number] / Abbt-Stju Assurity Mri [id number] Implanted:03/16 (Quantity not on file) Cardiac Pacemaker [facility] ASSURITY MRI 2272 / [id number] / Hemostat Absorb 1x2 Surgicel Fibrillar - [id number] Implanted:Qty: 1 on 03/30/2024 by Uriel Kulkarni MD at [facility] Hemostasis Left: Chest Wall [employer] [id number] 12/13/2025 1961 / / [id number] Procedures Procedure Name Priority Date/Time Associated Diagnosis Comments EXTERNAL CARDIAC CTA Routine 11/17/2024 10:44 AM EDT BASIC METABOLIC PANEL Routine 11/02/2024 11:01 AM EDT Chest pain, unspecified type SOBOE (shortness of breath on exertion) CBC WITH AUTO DIFFERENTIAL Routine 09/15/2024 1:20 PM EDT Weakness Other fatigue MAGNESIUM Routine 09/15/2024 1:20 PM EDT Weakness Other fatigue Hypomagnesemia CBC AND DIFFERENTIAL Routine 09/15/2024 1:20 PM EDT Weakness Other fatigue BASIC METABOLIC PANEL Routine 09/15/2024 1:20 PM EDT Weakness Other fatigue CBC WITH AUTO DIFFERENTIAL Routine 09/08/2024 4:37 PM EDT Weakness Other fatigue CBC AND DIFFERENTIAL Routine 09/08/2024 4:37 PM EDT Weakness Other fatigue MAGNESIUM Routine 09/08/2024 4:37 PM EDT Weakness Other fatigue BASIC METABOLIC PANEL Routine 09/08/2024 4:37 PM EDT Chest pain, unspecified type CHB (complete heart block) (CMS/HCC V24, CMS/HCC V28) CARDIAC DEVICE CHECK- REMOTE- MURJ Routine 09/02/2024 11:20 AM EDT LIPID PANEL WITH REFLEX TO DIRECT LDL Routine 06/28/2024 6:46 AM EDT HEMOGLOBIN A1C Add-On 06/27/2024 1:57 PM EDT from Last 3 Months or Most Recently Relevant to Health Maintenance Results * External Cardiac CTA (11/17/2024 10:44 AM EDT) Anatomical Region Laterality Modality Magnetic Resonan ce us Historical Provider CV CT ANGIO PROCEDURES Fi nal Result * (ABNORMAL) Basic metabolic panel (11/02/2024 11:01 AM EDT) Only the most recent of3 resultswithin the time period is included. Sodium 139 133 - 145 mmol/L LAB CHEMISTRY METHOD 11/02/2024 12:[address] [facility] Potassium 4.2 3.5 - 5.5 mmol/L LAB CHEMISTRY METHOD 11/02/2024 12:[address] [facility] Chloride 101 96 - 110 mmol/L LAB CHEMISTRY METHOD 11/02/2024 12:[address] [facility] CO2 30 21 - 32 mmol/L LAB CHEMISTRY METHOD 11/02/2024 12:[address] [facility] Anion Gap 8 3 - 11 LAB CHEMISTRY METHOD 11/02/2024 12:[address] [facility] Glucose 130(H) 70 - 100 mg/dL LAB CHEMISTRY METHOD 11/02/2024 12:[address] [facility] BUN 13 5 - 25 mg/dL LAB CHEMISTRY METHOD 11/02/2024 12:[address] [facility] Creatinine 1.14(H) 0.50 - 1.10 mg/dL LAB CHEMISTRY METHOD 11/02/2024 12:[address] [facility] eGFR 47(L) >=60 mL/min/1. 73m2 LAB CHEMISTRY METHOD 11/02/2024 12:[address] [facility] Comment:Calculation based on the Chronic Kidney Disease Epidemiology Collaboration (CKD-EPI) equation refit without adjustment for race. BUN/Creatinine Ratio 11.4 LAB CHEMISTRY METHOD 11/02/2024 12:50 PM EDT [facility] Calcium 10.3 8.5 - 10.5 mg/dL LAB CHEMISTRY METHOD 11/02/2024 12:50 PM EDT [facility] Blood Venous blood specimen / Unknown Venipuncture / Unknown 11/02/2024 11:01 AM EDT 11/02/2024 11:01 AM EDT us Cee Sena NP LAB BLOOD ORDERABLES F inal Result [facility] [address] [place] [address], * (ABNORMAL) CBC auto differential (09/15/2024 1:20 PM EDT) Only the most recent of2 resultswithin the time period is included. WBC 16.3(H) 4.8 - 10.8 K/mcL LAB HEMETOLOGY [facility] RBC 3.20(L) 3.80 - 4.80 M/mcL LAB HEMETOLOGY METHOD 09/15/2024 5:[address] [facility] Hemoglobin 10.3(L) 11.5 - 16.0 g/dL LAB HEMETOLOGY METHOD 09/15/2024 5:41 PM EDT [facility] Hematocrit 32.6(L) 35.0 - 47.0 % LAB HEMETOLOGY METHOD 09/15/2024 5:41 PM EDT [facility] MCV 102.8(H) 79.0 - 98.0 FL LAB HEMETOLOGY METHOD 09/15/2024 5:[facility] MCH 32.5(H) 27.0 - 32.0 pcg LAB HEMETOLOGY METHOD 09/15/2024 5:41 PM EDT [facility] MCHC 31.6(L) 32.0 - 37.0 g/dL LAB HEMETOLOGY METHOD 09/15/2024 5:[facility] RDW 13.0 11.0 - 15.0 % LAB HEMETOLOGY METHOD 09/15/2024 5:[address] [facility] Platelets 353 130 - 400 K/mcL LAB HEMETOLOGY METHOD 09/15/2024 5:[address] [facility] MPV 9.5 7.0 - 11.0 FL LAB HEMETOLOGY METHOD 09/15/2024 5:41 [facility] NRBC 0.0 <1.0 % LAB HEMETOLOGY METHOD 09/15/2024 5:[address] [facility] NRBC Absolute 0.00 <0.10 K/mcL LAB HEMETOLOGY METHOD 09/15/2024 5:41 [facility] Neutrophils Relative 86.4 % LAB HEMETOLOGY METHOD 09/15/2024 5:[address] [facility] Lymphocytes Relative 7.1 % LAB HEMETOLOGY METHOD 09/15/2024 5:[address] [facility] Monocytes Relative 4.9 % LAB HEMETOLOGY METHOD 09/15/2024 5:[address] [facility] Eosinophils Relative 0.4 % LAB HEMETOLOGY METHOD 09/15/2024 5:[address] [facility] Basophils Relative 0.6 % LAB HEMETOLOGY METHOD 09/15/2024 5:[address] [facility] Immature Granulocytes Relative 0.6 % LAB HEMETOLOGY METHOD 09/15/2024 5:[address] [facility] Neutrophils Absolute 14.07(H) 1.50 - 7.00 K/mcL LAB HEMETOLOGY METHOD 09/15/2024 5:41 PM EDT [facility] Lymphocytes Absolute 1.16 1.00 - 5.00 K/mcL LAB HEMETOLOGY METHOD 09/15/2024 5:41 PM EDT [facility] Monocytes Absolute 0.79 0.20 - 1.00 K/mcL LAB HEMETOLOGY METHOD 09/15/2024 5:41 PM EDT [facility] Eosinophils Absolute 0.06 0.00 - 0.50 K/[facility] LAB HEMETOLOGY METHOD 09/15/2024 5:41 PM EDT [facility] Basophils Absolute 0.09 0.00 - 0.20 K/[facility] LAB HEMETOLOGY METHOD 09/15/2024 5:41 PM EDT [facility] Immature Granulocytes Absolute 0.09(H) 0.00 - 0.03 K/[facility] LAB HEMETOLOGY METHOD 09/15/2024 5:41 PM EDT [facility] Blood Venous blood specimen / Unknown Venipuncture / Unknown 09/15/2024 1:20 PM EDT 09/15/2024 1:20 PM EDT us Cee Sena [employer] LAB BLOOD ORDERABLES F inal Result [facility] [address] [place] [address], * Magnesium (09/15/2024 1:20 PM EDT) Only the most recent of2 resultswithin the time period is included. Magnesium 2.0 1.9 - 2.6 mg/dL LAB CHEMISTRY METHOD 09/15/2024 5:58 PM EDT [facility] Blood Venous blood specimen / Unknown Venipuncture / Unknown 09/15/2024 1:20 PM EDT 09/15/2024 1:20 PM EDT us Cee Sena [employer] LAB BLOOD ORDERABLES F inal Result [facility] [address] [place] [address], * Cardiac device check - Remote- MURJ (09/02/2024 11:20 AM EDT) Date Time Interrogation Session [id number] CV DEVICE CHECK Type Interrogation Session Remote Patient Initiated CV DEVICE CHECK Implantable Pulse Generator Press Supervisor [employer] CV DEVICE CHECK Implantable Pulse Generator Type IPG CV DEVICE CHECK Implantable Pulse Generator Model 2272 Assurity MRI(TM) CV DEVICE CHECK Implantable Pulse Generator Serial Number [id number] CV DEVICE CHECK Implantable Pulse Generator Implant Date 20240330 CV DEVICE CHECK Battery Remaining Percentage 95.50 CV DEVICE CHECK Battery Remaining Longevity 110.0 CV DEVICE CHECK Battery Voltage 2.990 CV D EVICE CHECK Battery ANA[employer] Trigger 2.600 CV DEVICE CHECK Battery Status Middle of Service CV DEVICE CHECK Nimesh Statistic RA Percent Paced 58.00 CV DEVICE CHECK Nimesh Statistic RV Percent Paced 99.00 CV DEVICE CHECK Atrial Tachy Statistic AT/AF [place] Percent 0.00 CV DEVICE CHECK Lead Channel Sensing Intrinsic Amplitude 5.000 CV DEVICE CHECK Lead Channel Setting Sensing Sensitivity 0.30 CV DEVICE CHECK Lead Channel Impedance Value 450 CV DEVICE CHECK Lead Channel Pacing Threshold Amplitude 0.750 CV DEVICE CHECK Lead Channel Pacing Threshold Pulse Width 0.4 CV DEVICE CHECK Lead Channel RA Pacing Threshold Date 2024-09-01 CV DEVICE CHECK Lead Channel Setting Pacing Amplitude 2.000 CV DEVICE CHECK Lead Channel Setting Pacing Pulse Width 0.4 CV DEVICE CHECK Lead Channel Sensing Intrinsic Amplitude 7.500 CV DEVICE CHECK Lead Channel Setting Sensing Sensitivity 0.50 CV DEVICE CHECK Lead Channel Impedance Value 290 CV DEVICE CHECK Lead Channel Pacing Threshold Amplitude 1.000 CV DEVICE CHECK Lead Channel Pacing Threshold Pulse Width 0.4 CV DEVICE CHECK Lead Channel RV Pacing Threshold Date 2024-09-01 CV DEVICE CHECK Lead Channel Setting Pacing Amplitude 1.250 CV DEVICE CHECK Lead Channel Setting Pacing [...] 150 CV DEVICE CHECK Date of Service 2024-10-16 CV DEVICE CHECK Anatomical Region Laterality Modality Device Interroga tion 09/01/2024 11:1 1 AM EDT Impressions 09/02/2024 11:15 AM EDT Normal Remote: No Events Triage request * Normal Device Function * Alerts or events: None * Battery: Battery is at 95.5%, 9.17 yrs * Sensing, impedance and thresholds reviewed * Programmed parameters reviewed * Presenting rhythm reviewed * Heart Rate Histograms reviewed * No significant changes noted Additional Notes: Per Direct Trends heart rate stable Narrative Procedure Note Rosy Cat, [employer] - 09/02/2024 IMPRESSION: Normal Remote: No Events Triage request * Normal Device Function * Alerts or events: None * Battery: Battery is at 95.5%, 9.17 yrs * Sensing, impedance and thresholds reviewed * Programmed parameters reviewed * Presenting rhythm reviewed * Heart Rate Histograms reviewed * No significant changes noted Additional Notes: Per Direct Trends heart rate stable Rosy Cat NP CV IMPLANTABLE CARDIAC DEVIC E PROCEDURES Final Result * (ABNORMAL) Lipid panel with reflex to direct LDL (06/28/2024 6:46 AM EDT) Cholesterol 235(H) 0 - 200 mg/dL LAB CHEMISTRY METHOD 06/28/2024 7:[address] [facility] Triglycerides 125 0 - 150 mg/dL LAB CHEMISTRY METHOD 06/28/2024 7:47 AM T [facility] HDL 62 >=40 mg/dL LAB CHEMISTRY METHOD 06/28/2024 7:[address] [facility] LDL Calculated 148(H) 0 - 100 mg/dL LAB CHEMISTRY METHOD 06/28/2024 7:[address] [facility] VLDL Cholesterol Jose 25 mg/dL LAB CHEMISTRY METHOD 06/28/2024 7:[facility] Non HDL Chol. (LDL+VLDL) 173(H) <145 mg/dL LAB CHEMISTRY METHOD 06/28/2024 7:47 AM EDT [facility] Chol/HDL Ratio 3.8 0.0 - 4.4 LAB CHEMISTRY METHOD 06/28/2024 7:47 AM EDT [facility] Blood Venous blood specimen / Unknown Venipuncture / Unknown 06/28/2024 6:46 AM EDT 06/28/2024 7:10 AM EDT Angela COLON LAB BLOOD ORDERABLES Fi nal Result Performing Organization Address City/[facility]/ZIP Co de Phone Number [facility] [address] [place] [address], [place] [phone] * Hemoglobin A1c (06/27/2024 1:57 PM EDT) Hemoglobin A1C 6.4 <6.5 % LAB CHEMISTRY METHOD 06/27/2024 10:16 PM EDT [facility] Mean Bld Glu Estim. 137 mg/dL LAB CHEMISTRY METHOD 06/27/2024 10:16 PM EDT [facility] Blood Venous blood specimen / Unknown Venipuncture / Unknown 06/27/2024 1:57 PM EDT 06/27/2024 2:33 PM EDT Angela COLON LAB BLOOD ORDERABLES Fi nal Result [facility] [address] [place] [address], [place] [phone] from Last 3 Months or Most Recently Relevant to Health Maintenance Insurance MEDICARE [facility] [place] [id number] Advance Directives * Full Code - Default (Latest Code Status on File) Date Activated Date Inactivated Comments 06/27/2024 3:26 PM 06/28/2024 6:43 PM This is orde r is used when code status has not been discussed with the patient, or code status is otherwise unknown/unconfirmed To update the patient's code status, place a code status order. Do not modify or discontinue any currently active code status orders. * Full Code - Confirmed Date Activated Date Inactivated Comments 03/29/2024 3:58 [...] currently active code status orders. Care Teams Freezer Assistant Relationship Specialty Start Date End Date Criss Davis MD [address] [place] [phone] PCP - General Internal Medicine 03/29/24
--- OUTSIDE RECORDS SUMMARY | 2024-12-01 16:58 | XMS_ITS | Clinical Summary ---
Author Organization [facility] Address [address] [facility] [address] [place] [address] Phone Care Team Providers Care Guest History Clerk Name Role Phone Criss Davis MD Primary [...] 05/04/2021 Type 2 diabetes mellitus 03/03/2022 Immunizations Immunization Administration Dates Next Due Influenza Whole 11/26/2018 [...] Exam 05/08/2020 Diabetes: Visual Foot Exam 05/08/2020 Diabetes: Hemoglobin A1C 06/27/2024 03/29/2024 Influenza Vaccine (#1) 2024 11/26/2018 Pneumococcal Vaccine: 50+ Years Completed 09/19/2016, 08/27/2015 Pneumococcal Vaccine: Peds ( 0 to 5 Years) and At-Risk Patients (6 to 49 Years) Discontinued 09/19/2016, 08/27/2015 Hepatitis B Vaccine Aged Out No longe r eligible based on patient's age to complete this topic Insurance Medicare [facility] Medicare [facility] Care Teams Guest History Clerk Relationship Specialty Start Date End Date Criss Davis MD [place] [id number] [place], [place] PCP - General 03/26/20
--- OUTSIDE RECORDS SUMMARY | 2024-12-01 16:58 | XMS_ITS | Encounter Summary ---
Author Organization [facility] Address [address] [facility] [address] [place] [address] Phone Care Team Providers Care Assistant Director Of Nursing Name Role Phone Criss Davis MD Primary Care Provider Encounter Details Date Type Department Care Team (Late st Contact Info) Description 04/07/2022 Telephone [facility] [address] [facility] [address] [place] [phone] Jesse Mercado MD Social History Tobacco Use [...] for now. She will be seeing an sales representative leather goods first and they will decide if surgery is thenext step. documented in this encounter Plan of Treatment Not on file documented as of this encounter Visit Diagnoses Not on filedocumented in this encounter Care Teams Assistant Director Of Nursing Relationship Specialty Start Date End Date Criss Davis MD [address] PCP - General 03/26/20 documented as of this encounter
== END 2024-12-01 16:27 | disposition home or self-care (01) ==
LOC: HO.HKAS 15:46
PROVIDERS: PCP Internal Medicine; Visit Provider Internal Medicine Nephrology
DX: I10 Essential (primary) hypertension (principal); D35.1 Benign neoplasm of parathyroid gland
CPT/HCPCS: 99214

== ENCOUNTER → 2024-12-01 15:45 | Outpatient (BNVA) | payer MEDICARE, OTHER, SELFPAY | PROVIDERS: PCP Internal Medicine; Visit Provider Internal Medicine Nephrology | DX: I10 Essential (primary) hypertension (principal); D35.1 Benign neoplasm of parathyroid gland; Z79.52 Long term (current) use of systemic steroids; Z79.899 Other long term (current) drug therapy | CPT/HCPCS: 99212 ==

== ENCOUNTER 2024-12-09 14:08 | Outpatient (REF) | payer MEDICARE, OTHER, SELFPAY ==
--- NOTE | ~2024-12-09 | MM_ITS ---
EXAMINATION: DXA BONE DENSITY AXIAL HISTORY: M85.80 - Other specified disorders of bone density and structure, unspecified... TECHNIQUE: TriCipher Dual energy absorptiometry (DEXA) of the lumbar spine, total left hip, and femoral neck was performed. COMPARISON: There are no prior studies for comparison. FINDINGS: The bone mineral density of the lumbar spine is 0.968 g/cm2, corresponding to a T-score of -1.7, and a Z-score of 0.2. This is indicative of osteopenia. The bone mineral density of the left total hip is 0.793 g/cm2, corresponding to a T-score of -1.7, and a Z-score of 0.6. This is indicative of osteopenia. The bone mineral density of the left femoral neck is 0.785 g/cm2, corresponding to a T-score of -18, and a Z-score of 0.6. This is indicative of osteopenia. FRACTURE RISK: The FRAX index suggests a risk of major osteoporotic fracture of 20.1%, and of hip fracture 7.0%. MM/XR DEXA axial skeleton IMPRESSION: Based on bone mineral density, and according to World Health Organization (WHO) criteria, the diagnosis is consistent with osteopenia. Statistically, 68% of repeat scans fall within 1 SD (+/- 0.010 g/cm2 for AP spine L1-L4) and 1 SD (+/- 0.012 g/cm2 for femur total) FRAX is a trademark of the [employer] [place] for Metabolic Bone Disease, a World Health Organization (WHO) Collaborating Center. Electronically signed by: José Miguel Allen MD 12/09/2024 03:02 PM EDT
--- OUTSIDE RECORDS SUMMARY | 2024-12-09 15:16 | XMS_ITS | Clinical Summary ---
Author Organization [facility] Address [address] [place] [phone] Phone Care Team Providers Care School Crossing Guard Name Role Phone Criss Davis MD Primary [...] Type Department Care Team Description 09/15/2024 Telephone [facility] Cardiology [facility] [address] [place] [address] eCe Sena NP 09/12/2024 Telephone [facility] Cardiology [facility] [address] [place] [address] Cee Sena NP 09/08/2024 3:10 PM EDT Office Visit [facility] Cardiology [facility] [address] [place] [phone] Cee Sena NP Weakness (Primary Dx); Other fatigue; SOBOE (shortness of breath on exertion); Chest pain, unspecified type; Hypomagnesemia from Last 3 Months Surgical History Surgery Date Site/Laterality Comments CHOLECYSTECTOMY CATARACT EXTRACTION REFRACTIVE SURGERY Left DILATION AND CURETTAGE OF UTERUS Medical History Medical History Date Comments Hypertension Hyperlipidemia CKD (chronic kidney disease) stage 3, GFR 30-59 ml/min [place] [place], [facility] V28) Parathyroid adenoma PMR (polymyalgia rheumatica) ([facility] [place]24) Diabetes mellitus ([facility] V24, [facility] V28) diet controlled Hypothyroid Social History Tobacco [...] ed Within the last 3 months, paco merino many times did you visit the emergency [...] for your loved ones. For example, child care lead teacher or elderly care for an older [...] Description 04/25/2025 4:00 PM EST Ancillary Procedure [facility] [address] [place] [address] Health Maintenance Due Date Last Done Comments [...] this topic Medical Devices Implanted Type Area Hide Mill Worker Device Identifier Shelf Expiration Date Model / Serial / Lot Lead Pcmk Tendril Sts [id number] - [id number] - [id number] Implanted:Qty: 1 on 03/30/2024 by Uriel Kulkarni MD at [facility] Cardiac Lead N/A: Heart [facility] [id number] 12/13/2026 2088TC/58 / [id number] / Lead Pcmk Tendril Sts [id number] - [id number] - [id number] Implanted:Qty: 1 on 03/30/2024 by Uriel Kulkarni MD at [facility] Cardiac Lead N/A: Heart [facility] [id number] 01/13/20278TC/52 / [id number] / Pcmkr Assurity Mri Dr-Riley Dual - [id number] - [id number] Implanted:Qty: 1 on 03/30/2024 by Uriel Kulkarni MD at [facility] Cardiac Pacemaker Left: Chest Wall [facility] [id number] 07/13/2025 [id number] / [id number] / Abbt-Stju 2272 Assurity Mri(Tm) [id number] Implanted:03/16 by Uriel Kulkarni MD (Quantity not on file) Cardiac Pacemaker Left: Chest [facility] 2272 ASSURITY MRI(TM) / [id number] / Abbt-Stju Assurity Mri [id number] Implanted:03/16 (Quantity not on file) Cardiac Pacemaker [facility] ASSURITY MRI 2272 / [id number] / Hemostat Absorb 1x2 Surgicel Fibrillar - [id number] Implanted:Qty: 1 on 03/30/2024 by Uriel Kulkarni MD at [facility] Hemostasis Left: Chest Wall [employer] [id number] 12/13/2025 1961 / / [id number] Procedures Procedure Name Priority Date/Time Associated Diagnosis [...] (complete heart block) (CMS/HCC V24, CMS/HCC V28) LIPID PANEL WITH REFLEX TO DIRECT LDL [...] mmol/L LAB CHEMISTRY METHOD 11/02/2024 12:50 PM [facility] Potassium 4.2 3.5 - 5.5 mmol/L LAB CHEMISTRY METHOD 11/02/2024 12:50 PM [facility] Chloride 101 96 - 110 mmol/L LAB CHEMISTRY METHOD 11/02/2024 12:50 PM [facility] CO2 30 21 - 32 mmol/L LAB CHEMISTRY METHOD 11/02/2024 12:50 PM [facility] Anion Gap 8 3 - 11 LAB CHEMISTRY METHOD 11/02/2024 12:50 PM [facility] Glucose 130(H) 70 - 100 mg/dL LAB CHEMISTRY METHOD 11/02/2024 12:50 PM [facility] BUN 13 5 - 25 mg/dL LAB CHEMISTRY METHOD 11/02/2024 12:50 PM [facility] Creatinine 1.14(H) 0.50 - 1.10 mg/dL LAB CHEMISTRY METHOD 11/02/2024 12:50 PM [facility] eGFR 47(L) >=60 mL/min/1. 73m2 LAB CHEMISTRY METHOD 11/02/2024 12:50 PM [facility] Comment:Calculation based on the Chronic Kidney Disease Epidemiology Collaboration (CKD-EPI) equation refit without adjustment for race. BUN/Creatinine Ratio 11.4 LAB CHEMISTRY METHOD 11/02/2024 12:50 PM [facility] Calcium 10.3 8.5 - 10.5 mg/dL LAB CHEMISTRY METHOD 11/02/2024 12:50 PM [facility] Blood Venous blood specimen / Unknown Venipuncture / Unknown 11/02/2024 11:01 AM EDT 11/02/2024 11:01 AM EDT us Cee Sena NP LAB BLOOD ORDERABLES F inal Result [facility] [address] [place] [address], * (ABNORMAL) CBC auto differential (09/15/2024 1:20 PM EDT) Only the most recent of2 resultswithin the time period is included. WBC 16.3(H) 4.8 - 10.8 K/mcL LAB HEMETOLOGY METHOD 09/15/2024 5:[address] [facility] RBC 3.20(L) 3.80 - 4.80 M/mcL LAB HEMETOLOGY METHOD 09/15/2024 5:[address] [facility] Hemoglobin 10.3(L) 11.5 - 16.0 g/dL LAB HEMETOLOGY METHOD 09/15/2024 5:[address] [facility] Hematocrit 32.6(L) 35.0 - 47.0 % LAB HEMETOLOGY METHOD 09/15/2024 5:[address] [facility] MCV 102.8(H) 79.0 - 98.0 FL LAB HEMETOLOGY METHOD 09/15/2024 5:[address] [facility] MCH 32.5(H) 27.0 - 32.0 pcg LAB HEMETOLOGY METHOD 09/15/2024 5:[address] [facility] MCHC 31.6(L) 32.0 - 37.0 g/dL LAB HEMETOLOGY METHOD 09/15/2024 5:[address] [facility] RDW 13.0 11.0 - 15.0 % LAB HEMETOLOGY METHOD 09/15/2024 5:[address] [facility] Platelets 353 130 - 400 K/mcL LAB HEMETOLOGY METHOD 09/15/2024 5:[address] [facility] MPV 9.5 7.0 - 11.0 FL LAB HEMETOLOGY METHOD 09/15/2024 5:[address] [facility] NRBC 0.0 <1.0 % LAB HEMETOLOGY METHOD 09/15/2024 5:[address] [facility] NRBC Absolute 0.00 <0.10 K/mcL LAB HEMETOLOGY METHOD 09/15/2024 5:[address] [facility] Neutrophils Relative 86.4 % LAB HEMETOLOGY METHOD 09/15/2024 5:[address] [facility] Lymphocytes Relative 7.1 % LAB [facility]EMETOLOGY [facility] Monocytes Relative 4.9 % LAB HEMETOLOGY METHOD 09/15/2024 5:[address] [facility] Eosinophils Relative 0.4 % LAB HEMETOLOGY METHOD 09/15/2024 5:[address] [facility] Basophils Relative 0.6 % LAB HEMETOLOGY METHOD [facility] Immature Granulocytes Relative 0.6 % LAB HEMETOLOGY METHOD 09/15/2024 5:41 PM [facility] Neutrophils Absolute 14.07(H) 1.50 - 7.00 K/mcL LAB HEMETOLOGY METHOD 09/15/2024 5:[address] [facility] Lymphocytes Absolute 1.16 1.00 - 5.00 K/mcL LAB HEMETOLOGY METHOD 09/15/2024 5:[address] [facility] Monocytes Absolute 0.79 0.20 - 1.00 K/mcL LAB HEMETOLOGY METHOD 09/15/2024 5:[address] [facility] Eosinophils Absolute 0.06 0.00 - 0.50 K/mcL LAB HEMETOLOGY METHOD 09/15/2024 5:[address] [facility] Basophils Absolute 0.09 0.00 - 0.20 K/[facility] HEMETOLOGY METHOD 09/15/2024 5:[address] [facility] Immature Granulocytes Absolute 0.09(H) 0.00 - 0.03 K/[facility] LAB HEMETOLOGY METHOD 09/15/2024 5:[address] [facility] Blood Venous blood specimen / Unknown Venipuncture / Unknown 09/15/2024 1:20 PM EDT 09/15/2024 1:20 PM EDT [facility] LAB BLOOD ORDERABLES F inal Result Performing Organization Address [facility]/ZIP Co de Phone Number [facility] [address] [place] [address], [place] [phone] * Magnesium (09/15/2024 1:20 PM EDT) Only the most recent of2 resultswithin the time period is included. Magnesium 2.0 1.9 - 2.6 mg/dL LAB CHEMISTRY METHOD 09/15/2024 5:[address] [facility] Blood Venous blood specimen / Unknown Venipuncture / Unknown 09/15/2024 1:20 PM EDT 09/15/2024 1:20 PM EDT [facility] LAB BLOOD ORDERABLES F inal Result Performing Organization Address [facility]/ZIP Co de Phone Number [facility] [address] [place] [address], [place] [phone] * (ABNORMAL) Lipid panel with reflex to direct LDL (06/28/2024 6:46 AM EDT) Cholesterol 235(H) 0 - 200 mg/dL LAB CHEMISTRY METHOD 06/28/2024 7:[address] [facility] Triglycerides 125 0 - 150 mg/dL LAB CHEMISTRY METHOD 06/28/2024 7:[address] [facility] HDL 62 >=40 mg/dL LAB CHEMISTRY METHOD 06/28/2024 7:[address] [facility] LDL Calculated 148(H) 0 - 100 mg/dL LAB CHEMISTRY METHOD 06/28/2024 7:[address] [facility] VLDL Cholesterol Jose 25 mg/dL LAB CHEMISTRY METHOD 06/28/2024 7:[address] [facility] Non HDL Chol. (LDL+VLDL) 173(H) <145 mg/dL LAB CHEMISTRY METHOD 06/28/2024 7:[address] [facility] Chol/HDL Ratio 3.8 0.0 - 4.4 LAB CHEMISTRY METHOD 06/28/2024 7:[address] [facility] Blood Venous blood specimen / Unknown Venipuncture / Unknown 06/28/2024 6:46 AM EDT 06/28/2024 7:10 AM EDT Angela COLON LAB BLOOD ORDERABLES Fi nal Result [facility] [address] [place] [address], * Hemoglobin A1c (06/27/2024 1:57 PM EDT) Hemoglobin A1C 6.4 <6.5 % LAB CHEMISTRY METHOD 06/27/2024 10:[address] [facility] Mean Bld Glu Estim. 137 mg/dL LAB CHEMISTRY METHOD 06/27/2024 10:[address] [facility] Blood Venous blood specimen / Unknown Venipuncture / Unknown 06/27/2024 1:57 PM EDT 06/27/2024 2:33 PM EDT us Angela OCLON LAB BLOOD ORDERABLES Fi nal Result [facility] [address] [place] [address], from Last 3 Months or Most Recently Relevant to Health Maintenance Insurance MEDICARE [facility] Advance Directives * Full Code - Default [...] currently active code status orders. Care Teams School Crossing Guard Relationship Specialty Start Date End Date Criss Davis MD [address] [place] [address] PCP - General Internal Medicine 03/29/24
--- OUTSIDE RECORDS SUMMARY | 2024-12-25 20:00 | XMS_ITS | Clinical Summary ---
Author Organization Unknown Care Team Providers Care Field Marketing Coordinator Name Role Phone DEBORAH MARTIN MD, MIRIAM Unavailable Javier TOWNSEND OT, TYRON Unavailable Unavailpeña FORD PT, SIRISHA Unavailable Unavailable TARYN RN, AMALIA Unavailable Unavailable BERNARDA RN, ANGELA Unavailable Unavailable Payers Payer Name Policy Type Policy Number Effective Date Expira tion Date MEDICARE - [facility] [id number] Problems Condition Name Condition Details Condition Category Status Onset Date Resolution Date Last Treatment Date Treating Clinician Comments HYPERTENSIVE CHRONIC KIDNEY DISEASE W STG 1-4/UNSP CHR KDNY Active 03-16 00:00: 00 TYPE 2 DIABETES MELLITUS W DIABETIC CHRONIC KIDNEY DISEASE Active 03-16 00:00: 00 CHRONIC KIDNEY DISEASE, UNSPECIFIED Active 03-16 00:00: 00 ATRIOVENTRIC ULAR BLOCK, COMPLETE Active 03-16 00:00: 00 HYPERLIPIDEM IA, UNSPECIFIED Active 03-16 00:00: 00 HYPOTHYROIDI SM, UNSPECIFIED Active 03-16 00:00: 00 ACQUIRED ABSENCE OF OTHER SPECIFIED PARTS OF DIGESTIVE TRACT Active 03-16 00:00: 00 PRESENCE OF CARDIAC PACEMAKER Active 03-16 00:00: 00 PERSONAL HISTORY OF NICOTINE DEPENDENCE Active 03-16 00:00: 00 Problems related to health literacy Active 03-16 00:00: 00 SOCIAL EXCLUSION AND REJECTION Active 03-16 00:00: 00 SENIOR LIVING (CURRENT) USE OF SYSTEMIC STEROIDS Active 03-16 00:00: 00 SENIOR LIVING (CURRENT) USE OF ASPIRIN Active 03-16 00:00: 00 Allergies, Adverse Reactions, Alerts Allergy Name Allergy Type Status Severity Reaction(s) Onset Date Inactive Date Treating Clinician Comments MIGUELITO IVEY Propensity to adverse reactions Active 2024-06 13:12:1 4 Medications Ordered Medication Name Filled Medication Name Start Date Stop Date Current Medication? Ordering Clinician Indication Dosage Frequency Signature (SIG) Comments Components sumatriptan 50 mg tablet 15 00:00: 00 Yes [id number] 1 tablet NEEDED 1 tablet NEEDED (route: oral) Med Classific ation: Central Nervous System Agents prednisone 2.5 mg tablet - 00:00: 00 08-04 23:59 :00 No [id number] 3 tablet DAILY CHECK LABS IN 4 WEEKS AT 3 tablet DAILY CHECK LABS IN 4 WEEKS AT (route: oral) Med Classific ation: Endocrine Synthroid 88 mcg tablet 18 00:00: 00 Yes [id number] 1 tablet DAILY 1 tablet DAILY (route: oral) Med Classific ation: Endocrine Aspirin Childrens 81 mg chewable tablet 06-30 00:00: 00 Yes [id number] 1 tablet DAILY 1 tablet DAILY (route: oral) Med Classific ation: Hematolog ical Agents calcitriol 0.25 mcg capsule 24 00:00: 00 Yes [id number] 1 capsule 4 TIMES A WEEK 1 capsule 4 TIMES A WEEK (route: oral) Med Classific ation: Electroly te Balance-N utritiona l Products iron 325 mg (65 mg iron) tablet 06-30 00:00: 00 Yes [id number] 1 tablet DAILY 1 tablet DAILY (route: oral) Med Classific ation: Electroly te Balance-N utritiona l Products losartan 50 mg tablet 06-30 00:00: 00 Yes [id number] 1 tablet DAILY 1 tablet DAILY (route: oral) Med Classific ation: Cardiovas cular Therapy Agents atorvastati n 20 mg tablet - 00:00: 00 Yes [id number] 1 tablet BEDTIME 1 tablet BEDTIME (route: oral) Med Classific ation: Cardiovas cular Therapy Agents prednisone 5 mg tablet - 00:00: 00 Yes [id number] 2 tablet DAILY 2 tablet DAILY (route: oral) Med Classific ation: Endocrine magnesium 400 mg (as magnesium oxide) capsule 09-09 00:00: 00 09-13 23:59 :00 No [id number] 1 capsule DAILY 1 capsule DAILY (route: oral) Med Classific ation: Electroly te Balance-N utritiona l Products cyclosporin e 0.05 % eye drops in a dropperette 10-28 00:00: 00 Yes [id number] Per instruc tions 2 TIMES DAILY Per instructio ns 2 TIMES DAILY (route: ophthalmic (eye)) Med Classific ation: Ophthalmi c Agents Systane Hydration (PF) 0.4 %-0.3 % eye drops 10-28 00:00: 00 Yes [id number] Per instruc tions DIRECTED Per instructio ns DIRECTED (route: ophthalmic (eye)) Med Classific ation: Ophthalmi c Agents Immunizations Ordered Immunization Name Filled Immunization Name Date Status Comments Refusal Reason INFLUENZA, TIV (INACTIVATED) 2024-01-25 00:00:00 COVID-19, COVID-19 2022-10-27 00:00:00 Vital Signs Vital Name Observation Time Observation Value Commen ts Temperature 2024-12-01 13:11:00.000 97.3 [degF] Temperature 2024-11-23 13:45:00.000 97.8 [degF] Temperature 2024-11-15 15:03:00.000 97.2 [degF] Temperature 2024-11-09 14:22:00.000 97.3 [degF] Temperature 2024-11-07 12:52:00.000 97.6 [degF] Temperature 2024-11-02 12:05:00.000 97.6 [degF] Temperature 2024-11-01 14:50:00.000 97.2 [degF] Pulse 2024-12-01 13:11:00.000 60 /min Pulse 2024-11-23 13:45:00.000 63 /min Pulse 2024-11-15 15:03:00.000 62 /min Pulse 2024-11-09 14:22:00.000 86 /min Pulse 2024-11-07 12:52:00.000 92 /min Pulse 2024-11-02 12:05:00.000 68 /min Pulse 2024-11-01 14:50:00.000 72 /min O2 Saturation (%) 2024-12-01 13:11:00.000 99 % O2 Saturation (%) 2024-11-23 13:45:00.000 98 % O2 Saturation (%) 2024-11-15 15:03:00.000 97 % O2 Saturation (%) 2024-11-09 14:22:00.000 98 % O2 Saturation (%) 2024-11-07 12:52:00.000 97 % O2 Saturation (%) 2024-11-02 12:05:00.000 97 % O2 Saturation (%) 2024-11-01 14:50:00.000 95 % Respirations 2024-12-01 13:11:00.000 18 /min Respirations 2024-11-23 13:45:00.000 18 /min Respirations 2024-11-15 15:03:00.000 17 /min Respirations 2024-11-09 14:22:00.000 18 /min Respirations 2024-11-07 12:52:00.000 17 /min Respirations 2024-11-02 12:05:00.000 18 /min Respirations 2024-11-01 14:50:00.000 17 /min Systolic Blood Pressure 2024-12-01 13:11:00.000 130 mm [Hg] Systolic Blood Pressure 2024-11-23 13:45:00.000 115 mm [Hg] Systolic Blood Pressure 2024-11-15 15:03:00.000 116 mm [Hg] Systolic Blood Pressure 2024-11-09 14:22:00.000 102 mm [Hg] Systolic Blood Pressure 2024-11-07 12:52:00.000 126 mm [Hg] Systolic Blood Pressure 2024-11-02 12:05:00.000 110 mm [Hg] Systolic Blood Pressure 2024-11-01 14:50:00.000 122 mm [Hg] Diastolic Blood Pressure 2024-12-01 13:11:00.000 65 mm [Hg] Diastolic Blood Pressure 2024-11-23 13:45:00.000 64 mm [Hg] Diastolic Blood Pressure 2024-11-15 15:03:00.000 62 mm [Hg] Diastolic Blood Pressure 2024-11-09 14:22:00.000 64 mm [Hg] Diastolic Blood Pressure 2024-11-07 12:52:00.000 64 mm [Hg] Diastolic Blood Pressure 2024-11-02 12:05:00.000 70 mm [Hg] Diastolic Blood Pressure 2024-11-01 14:50:00.000 62 mm [Hg] Plan of Treatment Planned Activity Planned Date Details Comments Future Scheduled Test SKILLED NU RSE TO EVALUATE PATIENT, IDENTIFY PRIMARY AND CO-MORBID CONDITIONS CODED PER CODING GUIDELINES, AND DEVELOP PATIENT SPECIFIC PLAN OF CARE THAT INCLUDES PATIENT GOAL FOR HOME HEALTH. [code = SKILLED NURSE TO EVALUATE PATIENT, IDENTIFY PRIMARY AND CO-MORBID CONDITIONS CODED PER CODING GUIDELINES, AND DEVELOP PATIENT SPECIFIC PLAN OF CARE THAT INCLUDES PATIENT GOAL FOR HOME HEALTH.] Future Scheduled Test SKILLED NU RSE TO ASSESS ANXIETY AND PROVIDE ASSISTANCE TO PATIENT FOR UNDERSTANDING AND MANAGEMENT OF FEELINGS. [code = SKILLED NURSE TO ASSESS ANXIETY AND PROVIDE ASSISTANCE TO PATIENT FOR UNDERSTANDING AND MANAGEMENT OF FEELINGS.] Future Scheduled Test SKILLED NU RSE FOR O/A, TEACHING AND MANAGEMENT OF CKD FOR EARLY IDENTIFICATION OF EXACERBATION OF DISEASE PROCESS [code = SKILLED NURSE FOR O/A, TEACHING AND MANAGEMENT OF CKD FOR EARLY IDENTIFICATION OF EXACERBATION OF DISEASE PROCESS] Future Scheduled Test SKILLED NU RSE TO INSTRUCT/REINFORCE MEASURES TO PREVENT BARRIERS TO CARE. [code = SKILLED NURSE TO INSTRUCT/REINFORCE MEASURES TO PREVENT BARRIERS TO CARE.] Future Scheduled Test SKILLED NU RSE TO OBTAIN BLOOD SUGAR PRN FOR SIGNS AND SYMPTOMS OF HYPO/HYPERGLYCEMIA. IF OBTAINED BY PATIENT/CAREGIVER PRIOR TO VISIT AND PATIENT IS NOT SYMPTOMATIC, SKILLED NURSE TO RECORD READING FROM PATIENT LOG. [code = SKILLED NURSE TO OBTAIN BLOOD SUGAR PRN FOR SIGNS AND SYMPTOMS OF HYPO/HYPERGLYCEMIA. IF OBTAINED BY PATIENT/CAREGIVER PRIOR TO VISIT AND PATIENT IS NOT SYMPTOMATIC, SKILLED NURSE TO RECORD READING FROM PATIENT LOG.] Future Scheduled Test PHYSICAL T HERAPIST TO EVALUATE PATIENT FOR WEAKNESS, LIMITED ROM AND PAIN TO RIGHT SHOULDER [code = PHYSICAL THERAPIST TO EVALUATE PATIENT FOR WEAKNESS, LIMITED ROM AND PAIN TO RIGHT SHOULDER] Future Scheduled Test SKILLED NU RSE TO PROVIDE TEACHING ON SIGNS AND SYMPTOMS AND MANAGEMENT OF HYPERTENSION WITH CKD [code = SKILLED NURSE TO PROVIDE TEACHING ON SIGNS AND SYMPTOMS AND MANAGEMENT OF HYPERTENSION WITH CKD] Future Scheduled Test SKILLED NU RSE FOR O/A AND TEACHING OF DIABETIC MANAGEMENT INCLUDING BLOOD SUGAR MONITORING/USE OF GLUCOMETER, DIABETIC DIET, LOWER EXTREMITY SKIN INSPECTION, PROPER SKIN/FOOT CARE, AND SIGNS AND SYMPTOMS HYPO/HYPERGLYCEMIA TO REPORT. [code = SKILLED NURSE FOR O/A AND TEACHING OF DIABETIC MANAGEMENT INCLUDING BLOOD SUGAR MONITORING/USE OF GLUCOMETER, DIABETIC DIET, LOWER EXTREMITY SKIN INSPECTION, PROPER SKIN/FOOT CARE, AND SIGNS AND SYMPTOMS HYPO/HYPERGLYCEMIA TO REPORT.] Future Scheduled Test PATIENT GRISSOM S A RISK OF HOSPITALIZATION AND ED USE. SKILLED NURSE TO ESTABLISH SUPPORT MEASURES TO MINIMIZE RISK OF HOSPITALIZATION AND ED USE, AND INSTRUCT PATIENT/CAREGIVER ON METHODS TO REDUCE AVOIDABLE HOSPITALIZATION AND ED USE. [code = PATIENT HAS A RISK OF HOSPITALIZATION AND ED USE. SKILLED NURSE TO ESTABLISH SUPPORT MEASURES TO MINIMIZE RISK OF HOSPITALIZATION AND ED USE, AND INSTRUCT PATIENT/CAREGIVER ON METHODS TO REDUCE AVOIDABLE HOSPITALIZATION AND ED USE.] Future Scheduled Test SKILLED NU RSE TO PROVIDE INSTRUCTION TO PATIENT/CAREGIVER RELATED TO DISCHARGE PLANNING. [code = SKILLED NURSE TO PROVIDE INSTRUCTION TO PATIENT/CAREGIVER RELATED TO DISCHARGE PLANNING.] Future Scheduled Test SKILLED NU RSE TO PERFORM ENVIRONMENTAL SAFETY RISK ASSESSMENT AND FALL RISK ASSESSMENT AND PROVIDE INSTRUCTION TO IMPLEMENT ENVIRONMENTAL SAFETY AND FALL PREVENTION STRATEGIES THROUGHOUT THE CERTIFICATION PERIOD. SKILLED NURSE WILL MAINTAIN SITUATIONAL AWARENESS AND WILL NOTIFY CLINICAL HEALTH AIDE AND PHYSICIAN/PROVIDER WITH ANY CHANGE IN CONDITION. [code = SKILLED NURSE TO PERFORM ENVIRONMENTAL SAFETY RISK ASSESSMENT AND FALL RISK ASSESSMENT AND PROVIDE INSTRUCTION TO IMPLEMENT ENVIRONMENTAL SAFETY AND FALL PREVENTION STRATEGIES THROUGHOUT THE CERTIFICATION PERIOD. SKILLED NURSE WILL MAINTAIN SITUATIONAL AWARENESS AND WILL NOTIFY CLINICAL HEALTH AIDE AND PHYSICIAN/PROVIDER WITH ANY CHANGE IN CONDITION.] Future Scheduled Test SKILLED NU RSE FOR OBSERVATION AND ASSESSMENT OF PATIENT S PAIN LEVEL AND EFFECTIVENESS OF PAIN MANAGEMENT REGIMEN. SKILLED NURSE TO INSTRUCT PATIENT/CAREGIVER REGARDING PHARMACOLOGIC AND NON-PHARMACOLOGIC PAIN CONTROL MEASURES. SKILLED NURSE TO REPORT TO PHYSICIAN IF PAIN LEVEL IS OUTSIDE OF ESTABLISHED PARAMETERS. [code = SKILLED NURSE FOR OBSERVATION AND ASSESSMENT OF PATIENT S PAIN LEVEL AND EFFECTIVENESS OF PAIN MANAGEMENT REGIMEN. SKILLED NURSE TO INSTRUCT PATIENT/CAREGIVER REGARDING PHARMACOLOGIC AND NON-PHARMACOLOGIC PAIN CONTROL MEASURES. SKILLED NURSE TO REPORT TO PHYSICIAN IF PAIN LEVEL IS OUTSIDE OF ESTABLISHED PARAMETERS.] Future Scheduled Test SKILLED NU RSE TO ASSESS PATIENT'S SKIN INTEGRITY AND INSTRUCT PATIENT/CAREGIVER ON MEASURES TO PREVENT PRESSURE ULCERS. [code = SKILLED NURSE TO ASSESS PATIENT'S SKIN INTEGRITY AND INSTRUCT PATIENT/CAREGIVER ON MEASURES TO PREVENT PRESSURE ULCERS.] Future Scheduled Test SKILLED NU RSE TO REVIEW PATIENT MEDICATIONS (PRESCRIPTION/OTC). INSTRUCT PATIENT/CAREGIVER ON ALL MEDICATIONS INCLUDING PURPOSE, WHEN TO TAKE, IMPORTANCE OF MEDICATION ADHERENCE, MONITORING OF EFFECTIVENESS, ADVERSE DRUG REACTIONS, POSSIBLE SIDE EFFECTS, AND WHEN TO NOTIFY AGENCY OR PHYSICIAN/PROVIDER OF ANY CONCERNS. [code = SKILLED NURSE TO REVIEW PATIENT MEDICATIONS (PRESCRIPTION/OTC). INSTRUCT PATIENT/CAREGIVER ON ALL MEDICATIONS INCLUDING PURPOSE, WHEN TO TAKE, IMPORTANCE OF MEDICATION ADHERENCE, MONITORING OF EFFECTIVENESS, ADVERSE DRUG REACTIONS, POSSIBLE SIDE EFFECTS, AND WHEN TO NOTIFY AGENCY OR PHYSICIAN/PROVIDER OF ANY CONCERNS.] Future Scheduled Test PHYSICAL T HERAPIST TO EVALUATE PATIENT SECONDARY TO FUNCTIONAL DEFICITS/SAFETY CONCERNS. PHYSICAL THERAPY TO ESTABLISH /UPGRADE/DOWNGRADE THERAPEUTIC EXERCISE PROGRAM AND INSTRUCT PATIENT/CAREGIVER ON EXERCISE PRECAUTIONS WITH WRITTEN HOME PROGRAM. MAY INCLUDE PROM, AAROM, AROM, RROM APPROPRIATE TO IMPROVE FUNCTIONAL STRENGTH AND RANGE OF MOTION. PHYSICAL THERAPY TO INSTRUCT PATIENT/CAREGIVER ON BED MOBILITY TECHNIQUES TO IMPROVE PATIENT MOBILITY AND POSITIONING TECHNIQUES IN ORDER TO INCREASE PATIENT S COMFORT AND DECREASE RISK OF SKIN BREAKDOWN. PHYSICAL THERAPY TO INSTRUCT PATIENT/CAREGIVER ON SAFE TRANSFER TECHNIQUES USING PROPER BODY MECHANICS AND EQUIPMENT. PHYSICAL THERAPY TO INSTRUCT PATIENT/CAREGIVER ON GAIT TRAINING TECHNIQUES USING APPROPRIATE ASSISTIVE DEVICE, PROPER BODY MECHANICS TO IMPROVE MOBILITY, AND PREVENT INJURY OF PATIENT AND/OR CAREGIVER. PHYSICAL THERAPY TO ASSESS AND RECOMMEND HOME SAFETY ADAPTATIONS AND EDUCATE PATIENT /CAREGIVER ON FALL PREVENTION STRATEGIES. PHYSICAL THERAPY FOR OBSERVATION AND ASSESSMENT OF PAIN, EFFECTIVENESS OF PAIN MANAGEMENT REGIMEN AND SKILLED TEACHING RELATED TO PAIN MANAGEMENT. THERAPIST TO REPORT INCREASED PAIN LEVEL TO PHYSICIAN FOR PROMPT INTERVENTION. PHYSICAL THERAPY TO INSTRUCT PATIENT/CAREGIVER ON BALANCE AND BALANCE STRATEGIES TO IMPROVE SAFE MOBILITY AND REDUCE RISK FOR FALL AND INJURY SUMMARY OF THERAPY EVAL/ASSESSMENT FINDINGS AND REASON(S) SKILLS OF A THERAPIST ARE INDICATED: PATIENT WAS SEEN FOR INITIAL PHYSICAL THERAPY VISIT AND HOME SAFETY ASSESSMENT. PATIENT IS A 84 YEAR OLD FEMALE WHO WAS RECENTLY REFERRED TO PHYSICAL THERAPY SECONDARY TO HAVING INCREASED NECK AND RIGHT KNEE PAIN AND IS AT RISK FOR FALLING. PATIENT STATES THAT PHYSICIAN INCREASED PREDNISONE TO 10 MG AND IS ON MONTHLY TAPER OF 1 MG PATIENT HAS FREQUENT EPISODES OF FLARING UP. PMH: PMR, DM, KIDNEY DS, PACEMAKER, NEUROPATHY, HISTORY OF FALLS, PLOF LIVES IN [place] WITH FAMILY, STAIRS WITH B RAILS, AMB WITH ROLLATOR. PATIENT AMBULATES WITH ROLLATOR IN HOME WITH ARMS HIGHER THAN NORMAL WHICH WAS ADJUSTED IN HT TO LOWER ROLLATOR ARMS. PATIENT STATES THAT SHE FOUND ALMOST INSTANT RELIEF IN HER NECK AND SHOULDERS AND BICEPS. PATIENT INSTRUCTED IN USE OF BRAKES FOR SAFETY TO LOCK AND UNLOCK APPROPRIATELY. PATIENT TRANSFERS REQUIRE [id number] WITH UPPER EXTREMITIES AND UNSTEADY INITIALLY. PATIENT STATES THAT SHE SLEEPS IN BED AND REQUIRES ASSISTANCE DUE TO ARM AND NECK PAIN BUT WAS UNWILLING TO PERFORM TODAY SHE WAS TOO TIRED TO MANAGE STEPS. PATIENT WAS INSTRUCTED IN NEGOTIATING OF 3 STEPS REQUIRING VERBAL CUES FOR LEAD LEG AND SIDESTEP. PATIENT HAS BEEN NEGOTIATING STEPS WITH THE WRONG LEG AND THEREFORE HAS BEEN MAKING IT MORE DIFFICULT REQUIRING PRETTY USE MORE UPPER EXTREMITY SUPPORT. PATIENT IS ABLE TO DRESS WITH SUPPORT DUE TO PAIN IN SHOULDERS AND SIGNIFICANT EFFORT. PATIENT HAS A DAUGHTER PRESENT FOR SHOWERING. TUG SCORE OF 30 SECONDS [id number] INDICATED PATIENT IS A FALL RISK. HOME EXERCISE PROGRAM INITIATED IN SITTING AND 3 EXERCISES INITIATED FOR UPPER EXTREMITIES IN RECLINER LIFT CHAIR WHICH WAS REDUCED FAR BACK POSSIBLE. PATIENT WAS INSTRUCTED TO PERFORM THESE UPPER EXTREMITY EXERCISES IN BED LATER THIS EVENING. WRITTEN PROGRAM PROVIDED FOR ALL WITH ILLUSTRATIONS. PATIENT IS APPROPRIATE CANDIDATE FOR SKILLED PHYSICAL THERAPY TO ADDRESS PHYSICAL IMPAIRMENTS AND FUNCTIONAL LIMITATIONS. PATIENT VERBALIZED AGREEMENT WITH PLAN OF CARE. MD NOTIFIED. NOV 17 ASSESSED WITH CONTRAST [code = PHYSICAL THERAPIST TO EVALUATE PATIENT SECONDARY TO FUNCTIONAL DEFICITS/SAFETY CONCERNS. PHYSICAL THERAPY TO ESTABLISH /UPGRADE/DOWNGRADE THERAPEUTIC EXERCISE PROGRAM AND INSTRUCT PATIENT/CAREGIVER ON EXERCISE PRECAUTIONS WITH WRITTEN HOME PROGRAM. MAY INCLUDE PROM, AAROM, AROM, RROM APPROPRIATE TO IMPROVE FUNCTIONAL STRENGTH AND RANGE OF MOTION. PHYSICAL THERAPY TO INSTRUCT PATIENT/CAREGIVER ON BED MOBILITY TECHNIQUES TO IMPROVE PATIENT MOBILITY AND POSITIONING TECHNIQUES IN ORDER TO INCREASE PATIENT S COMFORT AND DECREASE RISK OF SKIN BREAKDOWN. PHYSICAL THERAPY TO INSTRUCT PATIENT/CAREGIVER ON SAFE TRANSFER TECHNIQUES USING PROPER BODY MECHANICS AND EQUIPMENT. PHYSICAL THERAPY TO INSTRUCT PATIENT/CAREGIVER ON GAIT TRAINING TECHNIQUES USING APPROPRIATE ASSISTIVE DEVICE, PROPER BODY MECHANICS TO IMPROVE MOBILITY, AND PREVENT INJURY OF PATIENT AND/OR CAREGIVER. PHYSICAL THERAPY TO ASSESS AND RECOMMEND HOME SAFETY ADAPTATIONS AND EDUCATE PATIENT /CAREGIVER ON FALL PREVENTION STRATEGIES. PHYSICAL THERAPY FOR OBSERVATION AND ASSESSMENT OF PAIN, EFFECTIVENESS OF PAIN MANAGEMENT REGIMEN AND SKILLED TEACHING RELATED TO PAIN MANAGEMENT. THERAPIST TO REPORT INCREASED PAIN LEVEL TO PHYSICIAN FOR PROMPT INTERVENTION. PHYSICAL THERAPY TO INSTRUCT PATIENT/CAREGIVER ON BALANCE AND BALANCE STRATEGIES TO IMPROVE SAFE MOBILITY AND REDUCE RISK FOR FALL AND INJURY SUMMARY OF THERAPY EVAL/ASSESSMENT FINDINGS AND REASON(S) SKILLS OF A THERAPIST ARE INDICATED: PATIENT WAS SEEN FOR INITIAL PHYSICAL THERAPY VISIT AND HOME SAFETY ASSESSMENT. PATIENT IS A 84 YEAR OLD FEMALE WHO WAS RECENTLY REFERRED TO PHYSICAL THERAPY SECONDARY TO HAVING INCREASED NECK AND RIGHT KNEE PAIN AND IS AT RISK FOR FALLING. PATIENT STATES THAT PHYSICIAN INCREASED PREDNISONE TO 10 MG AND IS ON MONTHLY TAPER OF 1 MG PATIENT HAS FREQUENT EPISODES OF FLARING UP. PMH: PMR, DM, KIDNEY DS, PACEMAKER, NEUROPATHY, HISTORY OF FALLS, [place]LOF LIVES [place] WITH FAMILY, STAIRS WITH B RAILS, AMB WITH ROLLATOR. PATIENT AMBULATES WITH ROLLATOR IN HOME WITH ARMS HIGHER THAN NORMAL WHICH WAS ADJUSTED IN HT TO LOWER ROLLATOR ARMS. PATIENT STATES THAT SHE FOUND ALMOST INSTANT RELIEF IN HER NECK AND SHOULDERS AND BICEPS. PATIENT INSTRUCTED IN USE OF BRAKES FOR SAFETY TO LOCK AND UNLOCK APPROPRIATELY. PATIENT TRANSFERS REQUIRE [id number] WITH UPPER EXTREMITIES AND UNSTEADY INITIALLY. PATIENT STATES THAT SHE SLEEPS IN BED AND REQUIRES ASSISTANCE DUE TO ARM AND NECK PAIN BUT WAS UNWILLING TO PERFORM TODAY SHE WAS TOO TIRED TO MANAGE STEPS. PATIENT WAS INSTRUCTED IN NEGOTIATING OF 3 STEPS REQUIRING VERBAL CUES FOR LEAD LEG AND SIDESTEP. PATIENT HAS BEEN NEGOTIATING STEPS WITH THE WRONG LEG AND THEREFORE HAS BEEN MAKING IT MORE DIFFICULT REQUIRING PRETTY USE MORE UPPER EXTREMITY SUPPORT. PATIENT IS ABLE TO DRESS WITH SUPPORT DUE TO PAIN IN SHOULDERS AND SIGNIFICANT EFFORT. PATIENT HAS A DAUGHTER PRESENT FOR SHOWERING. TUG SCORE OF 30 SECONDS [id number] INDICATED PATIENT IS A FALL RISK. HOME EXERCISE PROGRAM INITIATED IN SITTING AND 3 EXERCISES INITIATED FOR UPPER EXTREMITIES IN RECLINER LIFT CHAIR WHICH WAS REDUCED FAR BACK POSSIBLE. PATIENT WAS INSTRUCTED TO PERFORM THESE UPPER EXTREMITY EXERCISES IN BED LATER THIS EVENING. WRITTEN PROGRAM PROVIDED FOR ALL WITH ILLUSTRATIONS. PATIENT IS APPROPRIATE CANDIDATE FOR SKILLED PHYSICAL THERAPY TO ADDRESS PHYSICAL IMPAIRMENTS AND FUNCTIONAL LIMITATIONS. PATIENT VERBALIZED AGREEMENT WITH PLAN OF CARE. MD NOTIFIED. NOV 17 ASSESSED WITH CONTRAST] Goal 2024-08-24 Patient Goal - TO FEEL LYNNE R Goal Patient Goal - TO FEEL LYNNE R Goal 2024-10-27 Patient Goal - TO FEEL LYNNE R Goal Provider Goal - A PLAN OF CARE WILL BE ESTABLISHED THAT MEETS PATIENT'S FDC NEEDS AND INCLUDES PATIENT GOAL FOR HOME HEALTH. Goal Provider Goal - SYMPTOMS OF ANXIETY ARE IDENTIFIED AND INTERVENTIONS INITIATED TO ENABLE PATIENT TO UNDERSTAND AND MANAGE FEELINGS THROUGHOUT EPISODE. Goal Provider Goal - PATIENT/CAREGIVER WILL VERBALIZE UNDERSTANDING OF GENITOURINARY DISEASE PROCESS, AND EXACERBATIONS OF GENITOURINARY DISEASE WILL BE PROMPTLY IDENTIFIED FOR EARLY INTERVENTION THROUGHOUT THE CERTIFICATION PERIOD. Goal Provider Goal - PATIENT / CAREGIVER WILL VERBALIZE UNDERSTANDING OF BARRIERS PREVENTING PROPER CARE AND DEMONSTRATE MEASURES TO ELIMINATE THOSE BARRIERS DURING THIS EPISODE. Goal Provider Goal - BLOOD SUGAR READING WILL BE OBTAINED ORDERED THROUGHOUT CERTIFICATION PERIOD. Goal Provider Goal - A PHYSICAL THERAPY EVALUATION TO BE COMPLETED WITH RECOMMENDATIONS AND/OR WRITTEN PLAN OF TREATMENT ESTABLISHED FOR PHYSICIAN S SIGNATURE. Goal Provider Goal - PATIENT/CAREGIVER WILL VERBALIZE SIGNS AND SYMPTOMS OF HYPERTENSION AND WILL BE ABLE TO DEMONSTRATE ABILITY TO MANAGE EXACERBATION BY END OF THE EPISODE. Goal Provider Goal - PATIENT/CAREGIVER WILL VERBALIZE/DEMONSTRATE KNOWLEDGE OF DIABETIC MANAGEMENT. CHANGES IN DIABETIC STATUS WILL BE IDENTIFIED AND REPORTED TO PHYSICIAN FOR PROMPT INTERVENTION THROUGHOUT THE CERTIFICATION PERIOD. Goal Provider Goal - PATIENT WILL HAVE SUPPORT MEASURES ESTABLISHED TO PREVENT HOSPITALIZATION AND ED USE AND PATIENT/CAREGIVER WILL VERBALIZE/DEMONSTRATE METHODS TO REDUCE AVOIDABLE HOSPITALIZATION AND ED USE BY END OF EPISODE. Goal Provider Goal - PATIENT/CAREGIVER WILL VERBALIZE UNDERSTANDING OF DISCHARGE PLANNING INSTRUCTIONS BY DATE OF DISCHARGE. Goal Provider Goal - PATIENT/CAREGIVER WILL VERBALIZE/DEMONSTRATE EFFECTIVE ENVIRONMENTAL SAFETY AND FALL PREVENTION STRATEGIES, WILL REMAIN SAFE IN THE COMMUNITY, AND WILL BE FREE OF DANGER TO SELF AND OTHERS THROUGHOUT THE CERTIFICATION PERIOD. Goal Provider Goal - PATIENT/CAREGIVER WILL DEMONSTRATE UNDERSTANDING OF PHARMACOLOGIC AND NONPHARMACOLOGIC PAIN CONTROL MEASURES AND PATIENT WILL HAVE IMPROVEMENT IN PAIN INTERFERING WITH ACTIVITY EVIDENCED BY PAIN AT A LEVEL THAT IS ACCEPTABLE TO THE PATIENT AND PAIN LEVEL WITHIN ESTABLISHED PARAMETERS BY END OF CERTIFICATION PERIOD. Goal Provider Goal - PATIENT/CAREGIVER WILL VERBALIZE UNDERSTANDING OF PRESSURE ULCER PREVENTION BY END OF THE EPISODE. Goal Provider Goal - PATIENT/CAREGIVER WILL VERBALIZE UNDERSTANDING OF EDUCATION PROVIDED ON MEDICATIONS BY THE END OF THE CERTIFICATION PERIOD. Goal Provider Goal - PHYSICAL THERAPY EVALUATION TO BE COMPLETED WITH RECOMMENDATIONS AND/OR WRITTEN TREATMENT PLAN OF CARE ESTABLISHED FOR THE PHYSICIAN S SIGNATURE PATIENT/CAREGIVER WILL PERFORM THERAPEUTIC EXERCISE/S AND DEMONSTRATE PARTICIPATION IN A HOME PROGRAM. PATIENT/CAREGIVER WILL DEMONSTRATE IMPROVED BED MOBILITY TECHNIQUES. PATIENT/CAREGIVER WILL DEMONSTRATE SAFE TRANSFERS USING APPROPRIATE ASSISTIVE DEVICE, BODY MECHANICS AND EQUIPMENT. PATIENT/CAREGIVER WILL DEMONSTRATE IMPROVED GAIT TECHNIQUES TO MINIMIZE RISK OF INJURY. PATIENT/CAREGIVER WILL DEMONSTRATE/VERBALIZE UNDERSTANDING OF RECOMMENDATIONS TO INCREASE SAFETY IN THE HOME AND FALL PREVENTION. INCREASED PAIN OR INEFFECTIVE PAIN CONTROL MEASURES WILL BE IDENTIFIED AND PROMPTLY REPORTED TO THE PHYSICIAN. PATIENT/CAREGIVER WILL DEMONSTRATE EFFECTIVE PAIN MANAGEMENT. PATIENT/CAREGIVER WILL DEMONSTRATE IMPROVED BALANCE AND REDUCE THE RISK OF FALLS AND INJURY. Encounters Start Date/Time End Date/Time Encounter Type Admission Type Attending [facility] Care [facility] Care Department Encounter ID Discharge Date Discharge Status Discharge Condition Discharge Reason Percent Goals Met 2024-10-28 00:00:00 2024-12-26 00:00:00 Outpatient RECERTIFIC ATAMALIA TRAN [facility] [id number]
== END 2024-12-09 14:09 | disposition home or self-care (01) ==
LOC: HO.MAMMO 14:08
PROVIDERS: PCP Internal Medicine; Visit Provider Internal Medicine Rheumatology
DX: Z13.820 Encounter for screening for osteoporosis (principal); M85.89 Other specified disorders of bone density and structure, multiple sites; M35.3 Polymyalgia rheumatica; Z79.52 Long term (current) use of systemic steroids
CPT/HCPCS: 77080

== ENCOUNTER → 2024-12-09 14:30 | Outpatient (BNV) | payer MEDICARE, OTHER, SELFPAY | PROVIDERS: PCP Internal Medicine; Visit Provider Radiology Diagnostic Radiology | DX: E28.39 Other primary ovarian failure (principal) | CPT/HCPCS: 77080 ==

== ENCOUNTER 2024-12-14 14:19 | Outpatient (AMB) | payer MEDICARE, OTHER, SELFPAY ==
[2024-12-14 14:28] VITALS: BP 120/70; PULSE 75; O2SAT 95; BMI 29.9
--- NOTE | 2024-12-14 14:28 | A.OFFVIS_ITS ---
Vital Signs 12/14/24 14:28 Height 4 ft 11 in Weight 147 lb 14.883 oz BMI 29.9 BP 120/70 Blood Pressure Location Rt brachial Position Sitting Pulse 75 Pulse Source Pulse Oximeter Pulse Oximetry (%) 95 Oxygen Delivery Method Room Air Intake Visit Reasons: 3 Months Intake Note: Patient presents today for PMR. Accompanied by: Daughter Allergies felodipine (From Plendil) Allergy (Verified 12/14/24 14:29) Unknown Medication List - Last Reconciled 12/14/24 by Lucien Killian MD aspirin 81 mg PO DAILY calcitriol 0.25 mcg PO 4XW ferrous sulfate (FeroSul) 325 mg PO DAILY levothyroxine (Synthroid) 88 mcg PO DAILY prednisone 6 mg PO DIRECTED sumatriptan succinate 50 mg PO HPI HPI 3 Months: Details: Since tapering prednisone a few months ago she has been experiencing increased pain in bilateral shoulders, biceps region, neck and upper back. She has periods of good days such as last week where she was more functional and able to cook. Sometimes at night she wakes up with shoulder pain. She is sleeping well. Denies headache, jaw claudication, scalp tenderness or vision loss. She has intermittent jaw pain. She recently had laser surgery on left eye. [facility] Medical History History of pacemaker Pacemaker Type 2 diabetes mellitus Seasonal allergic rhinitis Polymyalgia rheumatica Paresthesia of hand Osteopenia Obesity Iron deficiency anemia Hypothyroidism Hiatal hernia GERD (gastroesophageal reflux disease) Essential (primary) hypertension Dyslipidemia Depressive disorder Chronic kidney disease Anemia Surgical History History of cataract surgery History of cholecystectomy Family History Mother Cancer Maternal Aunt Cancer Maternal Uncle Cancer Social History Alcohol intake: never Patient Tobacco Use Status: Never used Tobacco Physical Exam Vital Signs: Last Vital Signs Pulse 75 12/14/24 14:28 BP 120/70 12/14/24 14:28 Pulse Ox 95 12/14/24 14:28 Oxygen Delivery Method Room Air 12/14/24 14:28 BMI result Body Mass Index 29.9 Const Other: General: Comfortable CVS: RRR Respiratory: clear to auscultation bilaterally. Good respiratory effort Skin: No lesions seen MSK: Tender to palpate bilateral shoulders. Right shoulder range of motion is normal with abduction and external rotation. She is able to internally rotate right shoulder but range of motion is not full. Left shoulder abduction 30 degrees with limited internal external rotation. Tender to palpate trapezius and paraspinal muscles of cervical spine. No synovitis of any joint. Normal range of motion of hands and elbows. Limited external rotation of bilateral hips. Knee flexion 90 degrees of bilateral knees. Vascular: +1 bilateral radial pulses Assessment & Plan Assessment & Plan (1) Polymyalgia rheumatica: Comment: Relapse disease. She recently started prednisone 6 mg daily. A few months ago she started experiencing worsening right shoulder pain and upper back/neck pain. I will order inflammatory markers. Myofascial strain is contributing to neck and upper back pain. I am concerned she has rotator cuff pathology contributing to her shoulder pain with adhesive capsulitis of left shoulder. She completed home PT without benefit. X-ray December 2023 bilateral shoulders did not reveal arthritis. She has history of calcific tendonitis, which is seen from x-rays from 2022 [facility] records. Rheumatology history: Diagnosed at age 59. She has been on long-term prednisone 5 mg daily. PMR is controlled on prednisone 5 mg daily clinically. Left shoulder pain is a result of mild adhesive capsulitis. She has difficulty tapering less than prednisone 3 mg daily with recurrence of upper body pain and increased fatigue. I am concerned that she has adrenal insufficiency is contributing to increased fatigue and feeling of unwell when she tapers prednisone to less than 3 mg daily. She has seen endocrinology 08/09/2024. Code(s): M35.3 - Polymyalgia rheumatica Category: Medical Plan: Continue prednisone 6 mg daily Inflammatory markers and muscle enzymes ordered Osteopenia management below Continue exercises learned from PT If inflammatory markers are normal, I will arrange for a visit for bilateral shoulder cortisone injections and continue tapering prednisone If inflammatory markers are elevated, I will increase prednisone to 8 mg daily and start PA process for sarilumab. We discussed management of steroid sparing agent sarilumab in the event that it will assist with treatment of PMR and prevent future relapse while tapering prednisone If she continues to have fatigue, I recommend that she have further workup for sleep apnea with sleep study. Defer to PCP Return to clinic in 3 months (2) Osteopenia with high risk of fracture: Comment: On most recent bone density. We discussed diagnosis and management. Treatment with Fosamax is indicated. Risk factors: Age and long-term prednisone use Code(s): M85.80 - Other specified disorders of bone density and structure, unspecified site Category: Medical Plan: Labs to evaluate secondary causes of osteoporosis ordered Information on Fosamax given to patient After lab results are back, I will send prescription for Fosamax She avoids calcium supplement as she has had toxicity in the past. If calcium level is normal, I will send her information on calcium rich foods to take. Return to clinic in 3-4 months (3) On prednisone therapy: Code(s): Z79.52 - continuous churn buttermaker (current) use of systemic steroids Category: Medical Plan: See above (4) Adhesive capsulitis of left shoulder: Code(s): M75.02 - Adhesive capsulitis of left shoulder Category: Medical Plan: I will schedule her for visit for cortisone injection after inflammatory marker results are back (5) Adrenal insufficiency: Comment: Presumed due to long-term glucocorticoid use. She has seen endocrinology. Code(s): E27.40 - Unspecified adrenocortical insufficiency Category: Medical Plan: We will monitor clinically as prednisone is being tapered slowly Orders: Orders Erythrocyte Sedimentation Rate Today Z79.899 - Other fpc (current) drug therapy Vitamin D 25-OH Total Today M85.80 - Other specified disorders of bone density and structure, unspecified site TSH reflex Free T4 Today M85.80 - Other specified disorders of bone density and structure, unspecified site Parathyroid Hormone Intact Today M85.80 - Other specified disorders of bone density and structure, unspecified site Complete Blood Count Auto Diff Today M35.3 - Polymyalgia rheumatica, M85.80 - Other specified disorders of bone density and structure, unspecified site, Z79.52 - continuous churn buttermaker (current) use of systemic steroids Creatinine Today M85.80 - Other specified disorders of bone density and structure, unspecified site C Reactive Protein Today Z79.899 - Other continuous churn buttermaker (current) drug therapy Calcium Today M85.80 - Other specified disorders of bone density and structure, unspecified site Albumin Level Today M85.80 - Other specified disorders of bone density and structure, unspecified site Medications: Changed From prednisone Take 9 tablets daily 1 month, 8 tablet daily 1 month, 7 tablets daily 1 month. take prednisone with food 1 mg PO DIRECTED 720 tabs 0RF To prednisone Take 9 tablets daily 1 month, 8 tablet daily 1 month, 7 tablets daily 1 month. take prednisone with food 6 mg PO DIRECTED Coding Level of Care Code Est Pt Level 4 (84049) Complex EM visit Add On G2211 Diagnoses Polymyalgia rheumatica M35.3 Osteopenia with high risk of fracture M85.80 On prednisone therapy Z79.52 Adhesive capsulitis of left shoulder M75.02 Adrenal insufficiency E27.40
--- OUTSIDE RECORDS SUMMARY | 2024-12-14 15:32 | XMS_ITS | Clinical Summary ---
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 CHB (complete heart block) ([facility] V24, [facility] V28) 03/29/2024 Assessment & Plan (04/25/2024 1:25 [...] Type Department Care Team Description 09/15/2024 Telephone [facility] [address] [facility] [address] [place] [address] Cee Sena NP from Last 3 Months Surgical History Surgery Date Site/Laterality Comments CHOLECYSTECTOMY CATARACT EXTRACTION REFRACTIVE SURGERY Left DILATION AND CURETTAGE OF UTERUS Medical History Medical History Date Comments Hypertension Hyperlipidemia CKD (chronic kidney disease) stage 3, GFR 30-59 ml/min (CMS/HCC V24, CMS/HCC V28) Parathyroid adenoma PMR (polymyalgia rheumatica) ([facility]/HCC V24) Diabetes mellitus (CMS/HCC V24, CMS/HCC V28) diet controlled Hypothyroid Social History Tobacco Use Types Packs/Day Years Used Date Smoking Tobacco: Former Cigarettes 0.5 43.7 S tarted: 1981 Passive Smoke Exposure: Past Smokeless Tobacco: Never Tobacco Cessation:Counseling Given: No Comments:Quit 1960 Alcohol Use Standard Drinks/Week Comments [...] your loved ones. For example, child care coordinator or elderly care for an older adult? [...] Date Recorded What is your living situation? Unrecognized valu e 06/28/2024 Interpersonal Safety Answer Date Record ed Physical Abuse Unrecognized value 06/28/2024 Verbal Abuse Unrecognized value 06/28/2024 Comments No Sex and Gender Information [...] Description 04/25/2025 4:00 PM EST Ancillary Procedure [facility] [address] [facility] [address] [place] [address] Health Maintenance Due Date Last [...] this topic Medical Devices Implanted Type Area Macadam Raker Device Identifier Shelf Expiration Date Model / Serial / Lot Lead Pcmk Tendril Sts [id number] - [id number] - [id number] Implanted:Qty: 1 on 03/30/2024 by Uriel Kulkarni MD at [facility] Cardiac Lead N/A: Heart [facility] [id number] 12/13/2026 2088TC/58 / [id number] / Lead Pcmk Tendril Sts [id number] - [id number] - [id number] Implanted:Qty: 1 on 03/30/2024 by Uriel Kulkarni MD at [facility] Cardiac Lead N/A: Heart [facility] [id number] 01/13/2027 2088TC/52 / [id number] / Pcmkr Assurity Mri Dr-Rf Dual - [id number] - [id number] Implanted:Qty: 1 on 03/30/2024 by Uriel Kulkarni MD at [facility] Cardiac Pacemaker Left: Chest Wall [facility] [id number] 07/13/2025 [id number] / [id number] / Abbt-Stju 2272 Assurity Mri(Tm) [id number] Implanted:03/16 by Uriel Kulkarni MD (Quantity not on file) Cardiac Pacemaker Left: Chest [facility] 2272 ASSURITY MRI(TM) / [id number] / Abbt-Stju Assurity Mri 2272 [id number] Implanted:03/16 (Quantity not on file) Cardiac Pacemaker [facility] ASSURITY MRI 2272 / [id number] / Hemostat Absorb 1x2 Surgicel Fibrillar - [id number] Implanted:Qty: 1 on 03/30/2024 by Uriel Kulkarni MD at [facility] Hemostasis Left: Chest Wall [employer] [id number] 12/13/2025 1961 / / [id number] Procedures Procedure Name Priority Date/Time Associated Diagnosis [...] 09/15/2024 1:20 PM EDT Weakness Other fatigue LIPID PANEL WITH REFLEX TO DIRECT LDL [...] 11:01 AM EDT) Only the most recent of2 resultswithin the time period is included. Sodium 139 133 - 145 mmol/L LAB CHEMISTRY METHOD 11/02/2024 12:50 PM [facility] Potassium 4.2 3.5 - 5.5 mmol/L LAB CHEMISTRY METHOD 11/02/2024 12:50 PM [facility] Chloride 101 96 - 110 mmol/L LAB CHEMISTRY METHOD 11/02/2024 12:50 PM [facility] CO2 30 21 - 32 mmol/L LAB CHEMISTRY METHOD 11/02/2024 12:50 PM [facility] Anion Gap 8 3 - 11 LAB CHEMISTRY METHOD 11/02/2024 12:50 PM [facility] Glucose 130(H) 70 - 100 mg/dL LAB CHEMISTRY METHOD 11/02/2024 12:50 PM [facility] BUN 13 5 - 25 mg/dL LAB CHEMISTRY METHOD 11/02/2024 12:50 PM [facility] Creatinine 1.14(H) 0.50 - 1.10 mg/dL LAB CHEMISTRY METHOD 11/02/2024 12:50 PM EDT [facility] eGFR 47(L) >=60 mL/min/1. 73m2 LAB CHEMISTRY METHOD 11/02/2024 12:50 PM EDT [facility] Comment:Calculation based on the Chronic Kidney Disease Epidemiology Collaboration (CKD-EPI) equation refit without adjustment for race. BUN/Creatinine Ratio 11.4 LAB CHEMISTRY METHOD 11/02/2024 12:50 PM EDT [facility] Calcium 10.3 8.5 - 10.5 mg/dL LAB CHEMISTRY METHOD 11/02/2024 12:50 PM EDT [facility] Blood Venous blood specimen / Unknown Venipuncture / Unknown 11/02/2024 11:01 AM EDT 11/02/2024 11:01 AM EDT Cee Sena FACTORY REPRESENTATIVE LAB BLOOD ORDERABLES F inal Result [facility] [address] [place] [address], * (ABNORMAL) CBC auto differential (09/15/2024 1:20 PM EDT) WBC 16.3(H) 4.8 - 10.8 K/mcL LAB HEMETOLOGY METHOD 09/15/2024 5:41 PM EDT [facility] RBC 3.20(L) 3.80 - 4.80 M/mcL LAB HEMETOLOGY METHOD 09/15/2024 5:41 PM EDT [facility] Hemoglobin 10.3(L) 11.5 - 16.0 g/dL LAB HEMETOLOGY METHOD 09/15/2024 5:41 PM EDT [facility] Hematocrit 32.6(L) 35.0 - 47.0 % LAB HEMETOLOGY METHOD 09/15/2024 5:41 PM EDT [facility] MCV 102.8(H) 79.0 - 98.0 FL LAB HEMETOLOGY METHOD 09/15/2024 5:41 PM EDT [facility] MCH 32.5(H) 27.0 - 32.0 pcg LAB [facility]OLOGY [facility] MCHC 31.6(L) 32.0 - 37.0 g/dL LAB HEMETOLOGY METHOD 09/15/2024 5:41 PM EDT [facility] RDW 13.0 11.0 - 15.0 % LAB [facility]ETOLOGY [facility]24 5[facility] Platelets 353 130 - 400 K/mcL LAB HEMETOLOGY [facility]/15[facility]24 5[facility] MPV 9.5 7.0 - 11.0 FL LAB HEMETOLOGY METHOD 09/15/2024 5:41 PM EDT [facility] NRBC 0.0 <1.0 % LAB [facility]OLOGY [facility] NRBC Absolute 0.00 <0.10 K/mcL LAB HEMETOLOGY METHOD 09/15/2024 5:41 [facility] Neutrophils Relative 86.4 % LAB [facility]EMETOLOGY METHOD [facility]/15/2024 5:[facility] Lymphocytes Relative 7.1 % LAB [facility]EMETOLOGY METHOD [facility]/15/2024 5:[facility] Monocytes Relative 4.9 % LAB HEMETOLOGY METHOD 09/15/2024 5:41 [facility] Eosinophils Relative 0.4 % LAB [facility]OLOGY [facility]/15[facility]24 5:41 [facility] Basophils Relative 0.6 % LAB HEMETOLOGY METHOD 09/15/2024 5:41 PM EDT [facility] Immature Granulocytes Relative 0.6 % LAB HEMETOLOGY METHOD 09/15/2024 5:41 PM EDT [facility] Neutrophils Absolute 14.07(H) 1.50 - 7.00 K/mcL LAB HEMETOLOGY METHOD 09/15/2024 5:41 PM EDT [facility] Lymphocytes Absolute 1.16 1.00 - 5.00 K/mcL LAB HEMETOLOGY METHOD 09/15/2024 5:41 PM EDT [facility] Monocytes Absolute 0.79 0.20 - 1.00 K/mcL LAB HEMETOLOGY METHOD 09/15/2024 5:41 PM EDT [facility] Eosinophils Absolute 0.06 0.00 - 0.50 K/mcL LAB HEMETOLOGY METHOD 09/15/2024 5:41 PM EDT [facility] Basophils Absolute 0.09 0.00 - 0.20 K/mcL LAB HEMETOLOGY METHOD 09/15/2024 5:41 PM EDT [facility] Immature Granulocytes Absolute 0.09(H) 0.00 - 0.03 K/mcL LAB HEMETOLOGY METHOD 09/15/2024 5:41 PM EDT [facility] Blood Venous blood specimen / Unknown Venipuncture / Unknown 09/15/2024 1:20 PM EDT 09/15/2024 1:20 PM EDT us Cee Sena FACTORY REPRESENTATIVE LAB BLOOD ORDERABLES F inal Result [facility] [address] [place] [address], * Magnesium (09/15/2024 1:20 PM EDT) Magnesium 2.0 1.9 - 2.6 mg/dL LAB CHEMISTRY METHOD 09/15/2024 5:58 PM EDT [facility] Blood Venous blood specimen / Unknown Venipuncture / Unknown 09/15/2024 1:20 PM EDT 09/15/2024 1:20 PM EDT Cee Sena FACTORY REPRESENTATIVE LAB BLOOD ORDERABLES F inal Result Performing Organization Address [facility] Co de Phone Number [facility] [address] [place] [address], [place] [phone] * (ABNORMAL) Lipid panel with reflex to direct LDL (06/28/2024 6:46 AM EDT) Cholesterol 235(H) 0 - 200 mg/dL LAB CHEMISTRY METHOD 06/28/2024 7:47 AM T [facility] Triglycerides 125 0 - 150 mg/dL LAB CHEMISTRY METHOD 06/28/2024 7:47 AM [facility] HDL 62 >=40 mg/dL LAB CHEMISTRY METHOD 06/28/2024 7:47 AM [facility] LDL Calculated 148(H) 0 - 100 mg/dL LAB CHEMISTRY METHOD 06/28/2024 7:47 AM [facility] VLDL Cholesterol Jose 25 mg/dL LAB CHEMISTRY METHOD 06/28/2024 7:47 AM [facility] Non HDL Chol. (LDL+VLDL) 173(H) <145 mg/dL LAB CHEMISTRY METHOD 06/28/2024 7:47 AM T [facility] Chol/HDL Ratio 3.8 0.0 - 4.4 LAB CHEMISTRY METHOD 06/28/2024 7:47 AM [facility] Blood Venous blood specimen / Unknown Venipuncture / Unknown 06/28/2024 6:46 AM EDT 06/28/2024 7:10 AM EDT Angela Sommers PA LAB BLOOD ORDERABLES Fi nal Result Performing Organization Address [facility] Co de Phone Number [facility] [address] [place] [address], [place] [phone] * Hemoglobin A1c (06/27/2024 1:57 PM EDT) Hemoglobin A1C 6.4 <6.5 % LAB CHEMISTRY METHOD 06/27/2024 10:16 PM EDT [facility] Mean Bld Glu Estim. 137 mg/dL LAB CHEMISTRY METHOD 06/27/2024 10:16 PM EDT [facility] Blood Venous blood specimen / Unknown Venipuncture / Unknown 06/27/2024 1:57 PM EDT 06/27/2024 2:33 PM EDT Angela COLON LAB BLOOD ORDERABLES Fi nal Result Performing Organization Address [facility] Co de Phone Number [facility] [address] [place] [address], [place] [phone] from Last 3 Months or Most Recently Relevant to Health Maintenance Insurance MEDICARE [facility] Advance Directives * Full Code - Default [...] currently active code status orders. Care Teams Field Inspector Relationship Specialty Start Date End Date Criss Davis MD [address] [place] [phone] PCP - General Internal Medicine 03/29/24
== END 2024-12-14 15:13 | disposition home or self-care (01) ==
LOC: HO.RHES 14:20
PROVIDERS: PCP Internal Medicine; Visit Provider Internal Medicine Rheumatology
DX: M35.3 Polymyalgia rheumatica (principal); M85.80 Other specified disorders of bone density and structure, unspecified site; Z79.52 Long term (current) use of systemic steroids; M75.02 Adhesive capsulitis of left shoulder; E27.40 Unspecified adrenocortical insufficiency
CPT/HCPCS: 99214; G2211

== ENCOUNTER 2024-12-14 14:19 | Outpatient (REF) | payer MEDICARE, OTHER, SELFPAY ==
--- OUTSIDE RECORDS SUMMARY | 2024-12-14 16:16 | XMS_ITS | Encounter Summary ---
Author Organization [facility] Address [address] [facility] [address] [place] [address] Phone Care Team Providers Care Shoeblack Name Role Phone Criss Davis MD Primary Care Provider Encounter Details Date Type Department Care Team (Late st Contact Info) Description 04/07/2022 Telephone [facility] [address] [facility] [address] [place] [phone] Jesse Mercado MD Social History Tobacco Use [...] for now. She will be seeing an bookmaker map first and they will decide if surgery is thenext step. documented in this encounter Plan of Treatment Not on file documented as of this encounter Visit Diagnoses Not on filedocumented in this encounter Care Teams Shoeblack Relationship Specialty Start Date End Date Criss Davis MD [address] PCP - General 03/26/20 documented as of this encounter
--- OUTSIDE RECORDS SUMMARY | 2024-12-14 16:16 | XMS_ITS | Clinical Summary ---
Author Organization [facility] Address [address] [facility] [address] [place] [address] Phone Care Team Providers Care Clerk Specialist Name Role Phone Criss Davis MD Primary [...] age to complete this topic Insurance Medicare [facility] Medicare [facility] Care Teams Clerk Specialist Relationship Specialty Start Date End Date Criss Davis MD [place] [id number] [place], [place] PCP - General 03/26/20
[2024-12-14 18:13] LABS: Hematocrit 35.1 % (37.0-47.0); Hemoglobin 11.1 g/dl (12.0-16.0); Imm Gran Abs Auto 0.07 X10*3/uL (0.00-0.03); Imm Gran Pct Auto 0.5 % (0.0-0.4); Lymphocytes Absolute Auto 0.6 X10*3/uL (1.2-4.9); MANUAL DIFF FLAG SCAN; Mean Corpuscular HGB Conc 31.6 g/dl (31.0-35.0); Mean Corpuscular Hemoglobin 29.7 pg (27.0-33.0); Mean Corpuscular Volume 93.9 fL (80.0-98.0); NRBC Abs Auto 0.000 X10*3/uL (0.0-0.012); NRBC Pct Auto 0.0 /100WBC (0.0-0.2); Platelet Count 376 X10*3/uL (160-400); Red Blood Count 3.74 X10*6/uL (4.20-5.50); SCAN SMEAR FLAG 1; White Blood Count 14.8 X10*3/uL (4.8-10.8)
[2024-12-14 18:31] LABS: Parathyroid Hormone Intact 82.7 pg/mL (8.7-77.1)
[2024-12-14 18:34] LABS: Albumin Level 4.0 g/dL (3.5-5.0); Anion Gap 12 (12-20); Blood Urea Nitrogen 16 mg/dL (9-16); Calcium 9.9 mg/dL (8.4-10.2); Carbon Dioxide 27 mmol/L (22-29); Chloride 103 mmol/L (96-108); Estimated Glomerular Filt Rate 53; Potassium 4.1 mmol/L (3.3-5.1); Sodium 138 mmol/L (135-145)
== END 2024-12-14 14:20 | disposition home or self-care (01) ==
LOC: HO.HKASLDS 14:19
PROVIDERS: Internal Medicine Nephrology; PCP Internal Medicine; Visit Provider Internal Medicine Rheumatology
DX: M35.3 Polymyalgia rheumatica (principal); M85.80 Other specified disorders of bone density and structure, unspecified site; M75.02 Adhesive capsulitis of left shoulder; E27.40 Unspecified adrenocortical insufficiency; D35.1 Benign neoplasm of parathyroid gland; N18.9 Chronic kidney disease, unspecified; Z79.52 Long term (current) use of systemic steroids; Z79.899 Other long term (current) drug therapy
CPT/HCPCS: 36415; 80051; 82040; 82085; 82306; 82310; 82550; 82565; 83970; 84443; 84520; 85025; 85652; 86140; 99212

== ENCOUNTER 2025-01-11 14:10 | Outpatient (REF) | payer MEDICARE, OTHER, SELFPAY ==
[2025-01-11 18:06] LABS: MANUAL DIFF FLAG NO
--- OUTSIDE RECORDS SUMMARY | 2025-01-11 18:24 | XMS_ITS | Clinical Summary ---
Author Organization 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 V24, [facility] V28) 03/29/2024 Assessment & Plan (04/25/2024 [...] Encounters Date Type Department Care Team Description 12/30/2024 6:15 AM EDT Ancillary Procedure [facility] [address] [facility] [address] [place] [address] from Last 3 Months Surgical History Surgery Date Site/Laterality Comments CHOLECYSTECTOMY CATARACT EXTRACTION REFRACTIVE SURGERY Left DILATION AND CURETTAGE OF UTERUS Medical History Medical History Date Comments Hypertension Hyperlipidemia CKD (chronic kidney disease) stage 3, GFR 30-59 ml/min ([facility] V24, [facility] V28) Parathyroid adenoma PMR (polymyalgia rheumatica) ([facility] V24) Diabetes mellitus ([facility]/HCC V24, [facility]/H[facility] V28) diet controlled Hypothyroid Social History Tobacco Use Types Packs/Day Years Used Date Smoking Tobacco: Former Cigarettes 0.5 43.8 S tarted: 1981 Passive Smoke Exposure: Past [...] care for your loved ones. For example, early childhood worker or elderly care for an older adult? [...] Description 04/25/2025 4:00 PM EST Ancillary Procedure [facility] [address] [facility] [address] [place] [address] Health Maintenance Due Date Last Done Comments Diabetes: Annual Foot Exam 01/23/1950 Diabetes: Annual Retina Eye Exam 01/23/1950 Zoster Vaccines (1 of 2) 1957 RSV Immunization Adult Patients (1 - 1-dose 75+ series) 2013 Depression Screening 03/16/2024 Medicare Annual Wellness Visit 03/29/2024 Osteoporosis Screening (Bone Density Screening) 03/29/2024 COVID-19 Vaccine ( season) 2024 01/13/2022, 08/22/2021, 12/11/2020, Additional history exists Diabetes: Blood Sugar Control Test (HGBA1C) 12/27/2024 06/27/2024, 03/29/2024 Falls Risk Assessment 06/28/2025 06/28/2024 Social Influencers of Health Screening 06/28/2025 06/28/2024 Hypertension/CHF/CAD Annual BMP Blood Test 11/02/2025 11/02/2024, 09/15/2024, 09/08/2024, Additional history exists DTaP,Tdap,and Td Vaccines (2 - Td or Tdap) 09/19/2026 09/19/2016 Cholesterol Screening (Lipid Panel) 06/28/2029 06/28/2024 Pneumococcal Vaccine: 50+ Years Completed 09/19/2016, 08/27/2015 Influenza Vaccine Completed 12/16/2024, , 11/25/2022, Additional history exists HIB Vaccines Aged Out [...] this topic Medical Devices Implanted Type Area Seed Corn Manager Production Device Identifier Shelf Expiration Date Model / Serial / Lot Lead Pcmk Tendril Sts [id number] - [id number] - [id number] Implanted:Qty: 1 on 03/30/2024 by Uriel Kulkarni MD at [facility] Cardiac Lead N/A: Heart [facility] [id number] 12/13/2026 2088TC/58 / [id number] / Lead Pcmk Tendril Sts [id number] - [id number] - [id number] Implanted:Qty: 1 on 03/30/2024 by Uriel Kulkarni MD at [facility] Cardiac Lead N/A: Heart [facility] [id number] 01/13/2027 2088TC/52 / [id number] / Pcmkr Assurity Mri Dr-Rf Dual - [id number] - [id number] Implanted:Qty: 1 on 03/30/2024 by Uriel Kulkarni MD at [facility] Cardiac Pacemaker Left: Chest Wall [facility] [id number] 07/13/2025 [id number] / [id number] / Abbt-Stju 2272 Assurity Mri(Tm) [id number] Implanted:03/16 by Uriel Kulkarni MD (Quantity not on file) Cardiac Pacemaker Left: Chest [facility] 2272 ASSURITY MRI(TM) / [id number] / Abbt-Stju Assurity Mri [id number] [id number] Implanted:03/16 (Quantity not on file) Cardiac Pacemaker [facility] ASSURITY MRI 2272 / [id number] / Hemostat Absorb 1x2 Surgicel Fibrillar - [id number] Implanted:Qty: 1 on 03/30/2024 by Uriel Kulkarni MD at [facility] Hemostasis Left: Chest Wall [employer] [id number] 12/13/2025 1961 / / [id number] Procedures Procedure Name Priority Date/Time Associated Diagnosis Comments CARDIAC DEVICE CHECK- REMOTE- MURJ Routine 12/30/2024 6:11 AM EDT EXTERNAL CARDIAC CTA Routine 11/17/2024 10:44 AM EDT BASIC METABOLIC PANEL Routine 11/02/2024 11:01 AM EDT Chest pain, unspecified type SOBOE (shortness of breath on exertion) LIPID PANEL WITH REFLEX TO DIRECT LDL Routine 06/28/2024 6:46 AM EDT HEMOGLOBIN A1C Add-On 06/27/2024 1:57 PM EDT from Last 3 Months or Most Recently Relevant to Health Maintenance Results * Cardiac device check - Remote- MURJ (12/30/2024 6:11 AM EDT) Date Time Interrogation Session [id number] CV DEVICE CHECK Type Interrogation Session Remote Scheduled CV DEVICE CHECK Implantable Pulse Generator Seed Corn Manager Production [employer] CV DEVICE CHECK Implantable Pulse Generator Type IPG CV DEVICE CHECK Implantable Pulse Generator Model 2272 Assurity MRI(TM) CV DEVICE CHECK Implantable Pulse Generator Serial Number [id number] CV DEVICE CHECK Implantable Pulse Generator Implant Date 20240330 CV DEVICE CHECK Battery Remaining Percentage 94.00 CV DEVICE CHECK Battery Remaining Longevity 108.0 CV DEVICE CHECK Battery Voltage 2.990 CV D EVICE CHECK Battery COLLEGE RECRUITER Trigger 2.600 CV DEVICE CHECK Battery Status Middle of Service CV DEVICE CHECK Nimesh Statistic RA Percent Paced 55.00 CV DEVICE CHECK Nimesh Statistic RV Percent Paced 99.00 CV DEVICE CHECK Atrial Tachy Statistic AT/AF Tyler Percent 0.00 CV DEVICE CHECK Lead Channel Sensing Intrinsic Amplitude 5.000 CV DEVICE CHECK Lead Channel Setting Sensing Sensitivity 0.30 CV DEVICE CHECK Lead Channel Impedance Value 460 CV DEVICE CHECK Lead Channel Pacing Threshold Amplitude 0.625 CV DEVICE CHECK Lead Channel Pacing Threshold Pulse Width 0.4 CV DEVICE CHECK Lead Channel RA Pacing Threshold Date 2024-12-29 CV DEVICE CHECK Lead Channel Setting Pacing Amplitude 2.000 CV DEVICE CHECK Lead Channel Setting Pacing Pulse Width 0.4 CV DEVICE CHECK Lead Channel Sensing Intrinsic Amplitude 7.700 CV DEVICE CHECK Lead Channel Setting Sensing Sensitivity 0.50 CV DEVICE CHECK Lead Channel Impedance Value 290 CV DEVICE CHECK Lead Channel Pacing Threshold Amplitude 0.750 CV DEVICE CHECK Lead Channel Pacing Threshold Pulse Width 0.4 CV DEVICE CHECK Lead Channel RV Pacing Threshold Date 2024-12-29 CV DEVICE CHECK Lead Channel Setting Pacing [...] 150 CV DEVICE CHECK Date of Service 2025-01-15 CV DEVICE CHECK Anatomical Region Laterality Modality Device Interroga tion 12/29/2024 2:00 AM EDT Impressions 12/30/2024 1:53 AM EDT Tachycardia: AT * Stored EGMs are consistent with or suggestive of Atrial Tachycardia * AT Tyler: 0% * Total number of episodes: 1 8 sec. Narrative Procedure Note Uriel Kulkarni MD - 12/30/2024 IMPRESSION: Tachycardia: AT * Stored EGMs are consistent with or suggestive of Atrial Tachycardia * AT Tyler: 0% * Total number of episodes: 1 8 sec. Uriel Kulkarni MD CV IMPLANTABLE CARDIAC DEV ICE PROCEDURES Final Result * External Cardiac CTA (11/17/2024 10:44 AM EDT) Anatomical Region Laterality Modality Magnetic Resonan ce Historical Provider CV CT ANGIO PROCEDURES Fi nal Result * (ABNORMAL) Basic metabolic panel (11/02/2024 11:01 AM EDT) Sodium 139 133 - 145 mmol/L LAB CHEMISTRY METHOD 11/02/2024 12:50 PM [facility] Potassium 4.2 3.5 - 5.5 mmol/L LAB CHEMISTRY METHOD 11/02/2024 12:50 PM [facility] Chloride 101 96 - 110 mmol/L LAB CHEMISTRY METHOD 11/02/2024 12:50 PM [facility] CO2 30 21 - 32 mmol/L LAB CHEMISTRY METHOD 11/02/2024 12:50 PM [facility] Anion Gap 8 3 - 11 LAB CHEMISTRY METHOD 11/02/2024 12:50 PM [facility] Glucose 130(H) 70 - 100 mg/dL LAB CHEMISTRY METHOD 11/02/2024 12:50 PM [facility] BUN 13 5 - 25 mg/dL LAB CHEMISTRY METHOD 11/02/2024 12:50 PM EDT [facility] Creatinine 1.14(H) 0.50 - 1.10 mg/dL LAB CHEMISTRY METHOD 11/02/2024 12:50 PM T [facility] eGFR 47(L) >=60 mL/min/1. 73m2 LAB CHEMISTRY METHOD 11/02/2024 12:50 PM [facility] Comment:Calculation based on the Chronic Kidney Disease Epidemiology Collaboration (CKD-EPI) equation refit without adjustment for race. BUN/Creatinine Ratio 11.4 LAB CHEMISTRY METHOD 11/02/2024 12:50 PM [facility] Calcium 10.3 8.5 - 10.5 mg/dL LAB CHEMISTRY METHOD 11/02/2024 12:50 PM [facility] Blood Venous blood specimen / Unknown Venipuncture / Unknown 11/02/2024 11:01 AM EDT 11/02/2024 11:01 AM EDT Cee Sena HEAD OF TRANSPORT LOGISTICS LAB BLOOD ORDERABLES F inal Result [facility] [address] [place] [address], * (ABNORMAL) Lipid panel with reflex to direct LDL (06/28/2024 6:46 AM EDT) Cholesterol 235(H) 0 - 200 mg/dL LAB CHEMISTRY METHOD 06/28/2024 7:47 AM [facility] Triglycerides 125 0 - 150 mg/dL LAB CHEMISTRY METHOD 06/28/2024 7:47 AM [facility] HDL 62 >=40 mg/dL LAB CHEMISTRY METHOD 06/28/2024 7:47 AM [facility] LDL Calculated 148(H) 0 - 100 mg/dL LAB CHEMISTRY METHOD 06/28/2024 7:47 AM [facility] VLDL Cholesterol Jose 25 mg/dL LAB CHEMISTRY METHOD 06/28/2024 7:47 AM EDT [facility] Non HDL Chol. (LDL+VLDL) 173(H) <145 mg/dL LAB CHEMISTRY METHOD 06/28/2024 7:47 AM EDT [facility] Chol/HDL Ratio 3.8 0.0 - 4.4 LAB CHEMISTRY METHOD 06/28/2024 7:47 AM EDT [facility] Blood Venous blood specimen / Unknown Venipuncture / Unknown 06/28/2024 6:46 AM EDT 06/28/2024 7:10 AM EDT Angela COLON LAB BLOOD ORDERABLES Fi nal Result Performing Organization Address [facility]/ZIP Co de Phone Number [facility] [address] [place] [address], [place] [phone] * Hemoglobin A1c (06/27/2024 1:57 PM EDT) [facility] Hemoglobin A1C 6.4 <6.5 % LAB CHEMISTRY METHOD 06/27/2024 10:16 PM EDT [facility] Mean Bld Glu Estim. 137 mg/dL LAB CHEMISTRY METHOD 06/27/2024 10:16 PM EDT [facility] Blood Venous blood specimen / Unknown Venipuncture / Unknown 06/27/2024 1:57 PM EDT 06/27/2024 2:33 PM EDT Angela COLON LAB BLOOD ORDERABLES Fi nal Result Performing Organization Address City/[facility]/ZIP Co de Phone Number [facility] [address] [place] [address], [place] [phone] from Last 3 Months or Most Recently Relevant to Health Maintenance Insurance MEDICARE [facility] Advance Directives * Full Code - [...] currently active code status orders. Care Teams Emergency Planner Relationship Specialty Start Date End Date Criss Davis MD [address], [place] [address] PCP - General Internal Medicine 03/29/24
--- OUTSIDE RECORDS SUMMARY | 2025-01-11 18:24 | XMS_ITS | Clinical Summary ---
Author Organization [facility] Address [address] [facility] [address] [place] [address] Phone Care Team Providers Care Concrete Paving Machine Operator Name Role Phone Criss Davis MD [...] Foot Exam 05/08/2020 Diabetes: Hemoglobin A1C 06/27/2024 025, 03/29/2024 Influenza Vaccine (#1) 2024 11/26/2018 Pneumococcal Vaccine: 50+ Years Completed 09/19/2016, 08/27/2015 Pneumococcal Vaccine: Peds ( 0 to 5 Years) and At-Risk Patients (6 to 49 Years) Discontinued 09/19/2016, 08/27/2015 Hepatitis B Vaccine Aged Out No longe r eligible based on patient's age to complete this topic Insurance Medicare [facility] Medicare [facility] Care Teams Concrete Paving Machine Operator Relationship Specialty Start Date End Date Criss Davis MD [address] PCP - General 03/26/20
--- OUTSIDE RECORDS SUMMARY | 2025-01-11 18:24 | XMS_ITS | Encounter Summary ---
Author Organization [facility] Address [address] [facility] [address] [place] [address] Phone Care Team Providers Care Operation Shift Supervisor Name Role Phone Criss Davis MD Primary Care Provider Encounter Details Date Type Department Care Team (Late st Contact Info) Description 04/07/2022 Telephone [facility] [address] [facility] [address] [place] [phone] Jesse Mercado MD Social History Tobacco Use [...] for now. She will be seeing an environmental health officer first and they will decide if surgery is thenext step. documented in this encounter Plan of Treatment Not on file documented as of this encounter Visit Diagnoses Not on filedocumented in this encounter Care Teams Operation Shift Supervisor Relationship Specialty Start Date End Date Criss Davis MD [address] PCP - General 03/26/20 documented as of this encounter
--- OUTSIDE RECORDS SUMMARY | 2025-01-11 18:24 | XMS_ITS | Data Portability ---
Author Organization [place] [facility] Address [address] [place] [id number] Care Team Providers Care Nutrition Partner Name Role Phone CRISS PATTERSON Primary Care Provider Assessment Encounter Date Assessment Date Assessment LastModified by Organization Details LastModified Time 03/03/2021 03/03/2021 Overview/History : Pt c/o cough, nasal congestion, and myalgia onset last Thursday. Grandjhonathan came home last Thursday and began having similar symptoms last Thursday. He had a friend test positive for Influenza last week. Exam: new pt to and to this provider. Non-toxic afebrile 81yof in NAD. Resp unlabored, Lungs: diffuse crackles in the bases bilaterally. Mild end-expiratory wheezing noted. Mild anterior cervical LAD. No peripheral EDEMA DDx considered, but not limited to: COVID Influenza VIral URI PNA CHF Work up/Results: HPI and PE suggestive mostly of Viral URI/bronchitis/pn eumonitis Rapid COVID test negative Rapid Flu A and Flu B Neg COVID Pcr collected and pending. Plan/Discussion: Tessalon Perls and Albuterol HFA PRN cough, F/u for worsening symptoms. OTC meds PRN. Began discussion regarding mAB if her COVID PCR returns positive In order to obtain further information and compare any laboratory results/values, I have accessed patient records on the [employer]. This information was pertinent in my medical decision making today. Time On Scene with Patient: 00:51:17 [email or web address] Not available 03/03/2021 13:52:58 03/13/2021 03/13/2021 Overview/History : 81 y/o F with PMH of HTN, HLD, DM, Hypothyroidism, CKD Stage 3-4, and Polymyalgia Rheumatica, known to but new to provider, is seeking further evaluation for generalized weakness and fatigue x 2 weeks. The patient was last seen by 10 days ago and the patient had negative flu and COVID-19 tests performed. Patient states that her cough has improved, but she feels like her weakness has worsened. She feels tired when she exerts herself. She states that today she took a shower and had to take a break afterwards because she was so tired. She has had a loss of appetite and has lost 12 lbs over the last 2 weeks. The patient denies any shortness of breath or chest pain. The patient is requesting to have an ESR and CRP run in order to see if this is a Polymyalgia Rheumatica exacerbation. The patient and daughter are also concerned that the patient is depressed due to losing her and both of her parents all in the same year. Patient reports having a mechanical fall today as she tripped over her slippers and landed directly on her right knee. She has since been walking with a limp and with her cane. Exam: AAOx3 elderly female, non-toxic appearing, in no acute distress, ambulatory with cane, but walking with a limp due to right knee traumatic mechanical injury Head: NC/AT (+) moist mucous membranes Heart: RRR with no murmurs, rubs or gallops Lungs: Rales at the bilateral bases with no ronchi or rales present Abd: Soft, non-tender, non-distended Back: (-) CVA tenderness Extremities: Freely moving with no edema, 2+ distal pulses Neuro: CN II-XII intact, PERRLA, EOMI, 5/5 equal strength bilaterally, sensation is symmetric and intact DDx considered, but not limited to: Pneumonia versus UTI versus Electrolyte Abnormality versus Anemia versus Polymyalgia Rheumatica Exacerbation versus Hypothyroidism versus COVID-19 versus Other Viral Syndrome Work up/Results: Patient is non-toxic appearing in no acute distress. Patient's vital signs are stable. Patient is afebrile to 97.8. HR is 69. BP is 136/82. RR is 18. O2sat is 97% on RA. Patient has bilateral rales at the bases, but otherwise a normal neurological exam. Patient also has right knee pain with ambulation. Given patient's age and hx of Polymyalgia Rheumatica, HTN, HLD, DM, CKD, and Hypothyroidism will assess with POC Chem 8, send out CBC, ESR, CRP, Thyroid panel, as well as a CXR to r/o pneumonia. Will also order xray of right knee to r/o fracture. Will also repeat rapid COVID-19 test, although PCR was negative on 03/03. Will also assess with POC urine dipstick to r/o UTI. Rapid COVID-19 test on scene is negative. POC Chem 8 shows no significant abnormalities. glu - 106 BUN - 18 crea - 1.3 Na - 138 K - 4.4 cL - 100 TCO2 - 27 angap - 16 ica - 1.23 HCT - 39 Hb - 13.3 CBC, ESR, CRP, Thyroid Panel ordered, obtained and sent to [facility]. PATIENT UNABLE TO PROVIDE URINE ON SCENE. LEFT A HAT WITH URINE SPECIMEN CUP. SHE WILL CALL WHEN IT IS READY FOR PICK-UP. PLEASE PERFORM A URINALYSIS AND URINE CULTURE. IF URINALYSIS IS (+) FOR UTI, PLEASE INITIATE ANTIBIOTIC THERAPY. CXR ordered to r/o pneumonia. Right knee xray ordered to r/o fracture. Plan/Discussion: Lengthy discussion was had with patient and daughter regarding her symptoms. Advised that her vital signs are stable. Patient still has persistent rales and in conjunction with weakness, is concerning for possible pneumonia. Patient has not had any fevers and cough is improving so will not initiate antibiotic therapy until CXR is received. Advised patient that POC Chem 8 shows no significant abnormalities. Advised that ESR/CRP are non-specific markers of inflammation, so they could be elevated for other reasons other than a polymyalgia rheumatica exacerbation. Advised that once these results are received she should follow up with her PCP for treatment with Prednisone. PATIENT UNABLE TO PROVIDE URINE ON SCENE. LEFT A HAT WITH URINE SPECIMEN CUP. SHE WILL CALL WHEN IT IS READY FOR PICK-UP. PLEASE PERFORM A URINALYSIS AND URINE CULTURE. IF URINALYSIS IS (+) FOR UTI, PLEASE INITIATE ANTIBIOTIC THERAPY. will call with lab and imaging results as soon as they are received. Advised patient to stay hydrated with lots of oral fluids including water, gatorade, and pedialyte, and to take Tylenol for any pain or fever that may develop. Patient has an appointment scheduled with her PCP, Dr. Criss Vega, on Thursday and is advised to keep that appointment as scheduled for close follow up. Advised to monitor for worsening weakness, lethargy, fatigue, altered mental status, confusion, fevers, chest pain, shortness of breath, abdominal pain and if any of these are to occur then to call 911 and go to the ER or call DH back for re-evaluation. Patient verbalized her understanding of the diagnosis and need for follow up with PCP, as well as ER/DH return precautions. In order to obtain further information and compare any laboratory results/values, I have accessed old patient records. This information was pertinent in my medical decision making today. Proper Personal Protective Equipment (PPE), including gloves, eye protection and masks were donned and doffed appropriately and all equipment cleaned using approved technique with germicidal disposable wipes prior to and after care of this patient according to [facility]'s infection prevention protocols. 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 Lab culture, urine 2020 [facility] (Centralized Electronic Ordering - All Locations), Patient Can Go To The Location Of Their Choice, [id number] 10:54:46 BMP + ionized calcium, serum or plasma 2020 [facility] ([facility] - [facility] Locations), Patient Can Go To The Location Of Their Choice, [id number] 17:11:55 CBC w/ auto diff 2020 [facility] (Centralized Electronic Ordering - All Locations), Patient Can Go To The Location Of Their Choice, [id number] 18:44:50 ESR (erythrocyt e sedimentati on rate), blood 2020 [facility] ([facility] - All Locations), Patient Can Go To The Location Of Their Choice, [id number] 19:05:46 C-reactive protein, quantitativ e, serum or plasma 2020 [place] (Centralized Electronic Ordering - All Locations), Patient Can Go To The Location Of Their Choice, [id number] 19:20:35 rapid SARS CoV 2 Ag, QL IA, respiratory specimen 2020 [email or web address] [facility], [address] [facility], [place], [address], 17:06:20 thyroid panel, serum 2020 [place] (Centralized Electronic Ordering - All Locations), Patient Can Go To The Location Of Their Choice, [id number] 19:13:05 rapid flu (A+B) 2020 [id number] [facility], [address] [facility], [place], [address], 13:55:44 rapid SARS CoV 2 Ag, QL IA, respiratory specimen 2020 [id number] [facility], [address] [place], [address], 13:55:46 unlisted lab - covid-19 (novel coronavirus ) PCR 2020 [place] [facility] (Centralized Electronic Ordering - All Locations), Patient Can Go To The Location Of Their Choice, [id number] 01:29:03 Referral None recorded. Procedures None recorded. Surgeries None recorded. Imaging XR, knee, 3 view - s/p fall, injury, walking with a limp, r/o fracture [address] [employer]), [address] [facility], [place], [address], 16:49:34 XR, chest, 2 view - cough with bilateral rales, r/o pneumonia 2020 [address] [facility] ([facility] [employer]), [address] [facility], [place], [address], 16:49:34 Medication Orders benzonatate 200 mg capsule 2020 021 [id number] [facility]acy #[id number], [address] [place], [address], 13:55:47 albuterol sulfate HFA 90 mcg/actuati on aerosol inhaler 2020 021 [id number] [facility] #[id number], [address] [place], [address], 13:55:48 Patient TargetsNo targets recorded. Patient Instructions Encounter Date Encounter Id Patient Instructions Last Modified By Organization Details Last Modified Time 03/03/2021 [id number] Viral Illness Discharge Instructions BASIC INFORMATION A viral infection can range anywhere between a common cold and influenza. Most viruses will respond to a combination of time and supportive care. Viruses are eliminated by the bodies immune system and do not respond to antibiotics. Viruses can cause many different symptoms including runny stuffy nose, sore throat, headache, fever, body aches, cough, nausea, vomiting,diarrhea. Most of the viral illnesses are spread by hand to face contact, and the rest are spread through sneezing and coughing which releases virus into the air. Over the counter medications can help to relieve annoying symptoms. Occasionally having a virus may cause a secondary bacterial infection such as ear infections, pneumonia, sinusitis. INSTRUCTIONS Keeping your body as healthy as possible will help to limit your illness. Get plenty of rest Drink lots of fluids (water, herbal tea, gatorade) Reduce your risk of getting or giving a cold by avoiding touching your face with your hands. When you cough and sneeze cover your mouth/nose by placing your elbow or upper arm over the area rather than using your hand. Use a teaspoon of honey(avoid organic honey in infants and small children < 1 year) at bedtime to soothe your throat and ease cough. Sleep with head of bed elevated to promote drainage of secretions. Hot showers and humidifiers can help to loosen secretions. Tylenol over the counter can be helpful for aches and fever. Suck on hard, sugar-free candy during the day to keep the throat moist. MEDICATIONS Over the counter remedies are not recommended for young children, but can help relieve symptoms temporarily in adults. In general it is better to take only the medication you need rather than using combination products that contain ingredients that are unnecessary and may cause side effects. 1. Antihistamines (Benadryl, Chlor-Trimeton, Zyrtec, Claritin, Kimberlee) reduce secretions, but can cause drowsiness and sedation, do not drink alcohol or drive while taking these medications. 2. Decongestants (Phenylephrine, Sudafed) can help to shrink swollen nasal passages and dry secretions, but may cause palpitations, anxiety,and are not safe for people with High blood pressure or heart arrhythmias. 3. Topical Decongestants (Afrin/Thierry-synephr ine) can be very helpful for acute relief of nasal swelling and runny nose, HOWEVER they should not be used regularly for more than 3 days as they will cause rebound congestion if over-used. 4. Cough aids generally contain DM( Dextromethorphan) which is a cough suppressant and Guaifenesin which is an expectorant. While the DM portion can be helpful for suppressing the cough, guaifenesin, particularly as dosed in Mucinex like products has minimal effect and may cause nausea. Viral symptoms usually last between 5-10 days, it is not uncommon to have a mild cough for up to 6 weeks afterward. If you have been diagnosed with influenza you should minimize your contact with others. You may return to work/school after 24 hours of being fever free without medication (usually 5-10 days). FOLLOW UP if your symptoms are not improving in 7-10 days If you have severe ear pain, sinus pain, cough productive large amounts of mucus, wheezing. You have underlying medical problems that may become worse as a result of your viral illness (asthma, diabetes, COPD) and need to follow up to ensure you are improving. SEEK CARE IMMEDIATELY IF 1 Severe headache unresponsive to Tylenol or severe neck stiffness 2. Confusion 3. Severe chest pain 4. Difficulty breathing 5. Persistent vomiting 6. Cough productive large amounts of sputum or blood 7. Inability to keep liquids down 8. Fever unresponsive to medication over 102 If you develop any new or worsening symptoms and need after hours care, please go to nearest ER and/or call 911. If you have additional concerns or develop a change in your condition between 8am-10pm, please call [facility] at [phone] to help navigate your care. [email or web address] Not available 03/03/2021 12:51:08 03/13/2021 [id number] Thank you for yo ur visit with [facility] today. We cannot always find the exact cause of your symptoms during your initial visit. Please follow up with your primary care provider or specialist within 12-24 hours to be rechecked or seek medical attention if your symptoms do not go away or get worse. If you develop any new or worsening symptoms and need after hours care, please go to nearest ER and/or call 911. If you have additional concerns or develop a change in your condition between 8am-10pm, please call [facility] at [phone] to help navigate your care. Not available 03/13/2021 18:10:10 Reason for Referral None Reported. Results Created Date Observation Date Name Description Value Unit Range Abnormal Flag Note LastModifiedBy Organization Detail LastModifiedTime 03/03/2003/04/2021 COVID -19 (NOVE L CORON AVIRU S) PCR covid-19 PCR result (neg) NEGAT STEFANI 2018- novel Coron aviru s (2018nCoV ) not detec abdifatah by RT-PC Gabbie. Note: If clini glenn suspi cion for COVID -19 is high, tia nue to maint ain preca ution s and consi delbert repea t testi ng. Resul t repor abdifatah to the [facility]. All test resul ts must be corre lated with clini glenn findi ngs. This test has been autho rized by the FDA under an Emerg ency Use Autho rizat ion (EUA) for use by autho rized labor atori es. Testi ng perfo rmed on the studentSN ic Pant er Aptim a assay utili zing trans cript ion-m ediat ed ampli ficat ion (TMA) . Not Available [facility] (Centralized Electronic Ordering - All Locations) Patient Can Go To The Location Of Their Choice, [id number] 03/05/2021 01:29:03 03/03/20 21 03/04/2021 COVID -19 (NOVE L CORON AVIRU S) PCR covid-19 PCR specimen source NASAL Not Available [facility] (Central[facility] Electronic Ordering - All Locations) Patient Can Go To The Location Of Their Choice, [id number] 03/05/2021 01:29:03 03/03/20 21 03/03/2021 rapid flu (A+B) Flu A (ref: neg) negati ve Not Available [facility] [address] [facility], [place], [address], 03/03/2021 12:21:35 03/03/20 21 03/03/2021 rapid flu (A+B) Flu B (ref: neg) negati ve Not Available [facility] [address] [facility], [place], [address], 03/03/2021 12:21:35 03/03/20 21 03/03/2021 rapid flu (A+B) Control Visual ized/V alid Not Available [facility] [address] [place], [address], 03/03/2021 12:21:35 03/03/20 21 03/03/2021 rapid SARS CoV 2 Ag, QL IA, respi rator y speci men Covid-19 (ref: neg) negati ve Not Available [facility] [address] [facility], [place], [address], 03/03/2021 12:21:51 03/03/2003/03/2021 rapid SARS CoV 2 Ag, QL IA, respi rator y speci men Control Visual ized/V alid Not Available [facility] [address] [place], [address], 03/03/2021 12:21:51 03/13/20 21 03/13/2021 COMPL ETE CBC WITH DIFF WBC 10.0 K/mm3 (4.0-1 1.0) Not Available [facility] (Centralized Electronic Ordering - All Locations) Patient Can Go To The Location Of Their Choice, [id number] 03/13/2021 18:44:50 03/13/2003/13/2021 COMPL ETE CBC WITH DIFF RBC 4.25 M/mm3 (4.20- 5.40) Not Available [facility] (Centralized Electronic Ordering - All Locations) Patient Can Go To The Location Of Their Choice, 03/13/2021 18:44:50 03/13/2003/13/2021 COMPL ETE CBC WITH DIFF HGB 12.9 gm/dL (11.7- 15.5) Not Available [facility] (Centralized Electronic Ordering - All Locations) Patient Can Go To The Location Of Their Choice, 03/13/2021 18:44:50 03/13/2003/13/2021 COMPL ETE CBC WITH DIFF HCT 39.8 % (35.7- 45.8) Not Available [facility] (Centralized Electronic Ordering - All Locations) Patient Can Go To The Location Of Their Choice, 03/13/2021 18:44:50 03/13/2003/13/2021 COMPL ETE CBC WITH DIFF MCV 93.6 fL (80.0- 100.0) Not Available [facility] (Centralized Electronic Ordering - All Locations) Patient Can Go To The Location Of Their Choice, 03/13/2021 18:44:50 03/13/2003/13/2021 COMPL ETE CBC WITH DIFF MCH 30.4 pg (27.0- 34.0) Not Available [facility] (Centralized Electronic Ordering - All Locations) Patient Can Go To The Location Of Their Choice, 03/13/2021 18:44:50 03/13/2003/13/2021 COMPL ETE CBC WITH DIFF MCHC 32.4 g/dL (33.0- 37.0) low Not Available [facility] (Centralized Electronic Ordering - All Locations) Patient Can Go To The Location Of Their Choice, 03/13/2021 18:44:50 03/13/2003/13/2021 COMPL ETE CBC WITH DIFF plt 464 K/mm3 (150-4 60) high Not Available [facility] (Centralized Electronic Ordering - All Locations) Patient Can Go To The Location Of Their Choice, 03/13/2021 18:44:50 03/13/2003/13/2021 COMPL ETE CBC WITH DIFF RDW-SD 42.5 fL (<47.0 ) Not Available [facility] (Centralized Electronic Ordering - All Locations) Patient Can Go To The Location Of Their Choice, 03/13/2021 18:44:50 03/13/2003/13/2021 COMPL ETE CBC WITH DIFF MPV 9.7 fL (9.4-1 2.4) Not Available [facility] (Centralized Electronic Ordering - All Locations) Patient Can Go To The Location Of Their Choice, 03/13/2021 18:44:50 03/13/2003/13/2021 COMPL ETE CBC WITH DIFF automated NRBC 0.0 #/100 _WBC' s Not Available [facility] (Centralized Electronic Ordering - All Locations) Patient Can Go To The Location Of Their Choice, 03/13/2021 18:44:50 03/13/2003/13/2021 COMPL ETE CBC WITH DIFF abs. NRBC 0.0 K/mm3 Not Available [facility] (Centralized Electronic Ordering - All Locations) Patient Can Go To The Location Of Their Choice, 03/13/2021 18:44:50 03/13/2003/13/2021 COMPL ETE CBC WITH DIFF neut # 7.5 K/mm3 (1.3-7 .0) high Not Available [facility] (Centralized Electronic Ordering - All Locations) Patient Can Go To The Location Of Their Choice, 03/13/2021 18:44:50 03/13/2003/13/2021 COMPL ETE CBC WITH DIFF lymph # 1.7 K/mm3 (0.8-3 .1) Not Available [facility] (Centralized Electronic Ordering - All Locations) Patient Can Go To The Location Of Their Choice, 03/13/2021 18:44:50 03/13/2003/13/2021 COMPL ETE CBC WITH DIFF mono# 0.7 K/mm3 (0.4-0 .9) Not Available [facility] (Centralized Electronic Ordering - All Locations) Patient Can Go To The Location Of Their Choice, 03/13/2021 18:44:50 03/13/2003/13/2021 COMPL ETE CBC WITH DIFF eo # 0.1 K/mm3 (0.0-0 .4) Not Available [facility] (Centralized Electronic Ordering - All Locations) Patient Can Go To The Location Of Their Choice, 03/13/2021 18:44:50 03/13/2003/13/2021 COMPL ETE CBC WITH DIFF baso # 0.1 K/mm3 (0.0-0 .1) Not Available [facility] (Centralized Electronic Ordering - All Locations) Patient Can Go To The Location Of Their Choice, 03/13/2021 18:44:50 03/13/2003/13/2021 COMPL ETE CBC WITH DIFF abs. imm gran 0.1 K/mm3 Not Available [facility] (Central[facility] Ordering - All Locations) Patient Can Go To The Location Of Their Choice, 03/13/2021 18:44:50 03/13/2003/13/2021 COMPL ETE CBC WITH DIFF neut 74.4 % (44-76 ) Not Available [facility] (Centralized Electronic Ordering - All Locations) Patient Can Go To The Location Of Their Choice, 03/13/2021 18:44:50 03/13/2003/13/2021 COMPL ETE CBC WITH DIFF lymph 16.7 % (15-43 ) Not Available [facility] (Centralized Electronic Ordering - All Locations) Patient Can Go To The Location Of Their Choice, 03/13/2021 18:44:50 03/13/2003/13/2021 COMPL ETE CBC WITH DIFF monocyte 6.8 % (4.5-1 0.5) Not Available [facility] (Centralized Electronic Ordering - All Locations) Patient Can Go To The Location Of Their Choice, 03/13/2021 18:44:50 03/13/20 21 03/13/2021 COMPL ETE CBC WITH DIFF eo 0.7 % (0-6) Not Available [facility] (Centralized Electronic Ordering - All Locations) Patient Can Go To The Location Of Their Choice, 03/13/2021 18:44:50 03/13/2003/13/2021 COMPL ETE CBC WITH DIFF baso 0.9 % (0-2) Not Available [facility] (Centralized Electronic Ordering - All Locations) Patient Can Go To The Location Of Their Choice, 03/13/2021 18:44:50 03/13/2003/13/2021 COMPL ETE CBC WITH DIFF imm gran 0.5 % Not Available [facility] (Centralized Electronic Ordering - All Locations) Patient Can Go To The Location Of Their Choice, [facility] 03/13/2021 18:44:50 03/13/20 21 03/13/2021 SEDIM ENTAT ION RATE, AUTOM ATED sedimentatio n rate,automat ed 62 mm/HR (0-20) high Not Available [facility] ([facility] Ordering - All Locations) Patient Can Go To The Location Of Their Choice, [id number] 03/13/2021 19:05:46 03/13/20 21 03/13/2021 THYRO ID PANEL free T4 1.92 NG/dL (0.70- 1.80) high Not Available [facility] (Centralized Electronic Ordering - All Locations) Patient Can Go To The Location Of Their Choice, [id number] 03/13/2021 19:13:05 03/13/20 21 03/13/2021 THYRO ID PANEL TSH 0.84 uIU/m L (0.4-4 .2) Not Available [facility] (Centralized Electronic Ordering - All Locations) Patient Can Go To The Location Of Their Choice, [facility] 03/13/2021 19:13:05 03/13/20 21 03/13/2021 C-PRICE CTIVE PROTE IN C-reactive protein <0.3 mg/dL (0-0.5 ) Not Available [facility] (Centralized Electronic Ordering - All Locations) Patient Can Go To The Location Of Their Choice, [facility] 03/13/2021 19:20:35 03/13/20 21 03/13/2021 rapid SARS CoV 2 Ag, QL IA, respi rator y speci men Covid-19 (ref: neg) negati ve Not Available [facility] [address], [place], [address], 03/13/2021 17:01:34 03/13/20 21 03/13/2021 rapid SARS CoV 2 Ag, QL IA, respi rator y speci men Control Visual ized/V alid Not Available [facility] [address] [place], [address], 03/13/2021 17:01:34 03/13/20 21 03/13/2021 rapid SARS CoV 2 Ag, QL IA, respi rator y speci men Location [facility], [address] [place] [address], [id number] Not Available [facility] [address] [place], [address], 03/13/2021 17:01:34 03/13/20 21 03/13/2021 BMP + IONIZ ED CALCI UM, SERUM OR PLASM A glu 106 mg/dL 70-105 Not Available [address], [address], 03/13/2021 17:11:55 03/13/20 21 03/13/2021 BMP + IONIZ ED CALCI UM, SERUM OR PLASM A BUN 18 mg/dL 8-26 Not Available [address], [address], 03/13/2021 17:11:55 03/13/20 21 03/13/2021 BMP + IONIZ ED CALCI UM, SERUM OR PLASM A crea 1.3 mg/dL 0.6-1. 3 Not Available [address], [address], 03/13/2021 17:11:55 03/13/20 21 03/13/2021 BMP + IONIZ ED CALCI UM, SERUM OR PLASM A Na 138 mmol/ L 138-14 6 Not Available [address], [address], 03/13/2021 17:11:55 03/13/20 21 03/13/2021 BMP + IONIZ ED CALCI UM, SERUM OR PLASM A K 4.4 mmol/ L 3.5-4. 9 Not Available [address], [address], 03/13/2021 17:11:55 03/13/20 21 03/13/2021 BMP + IONIZ ED CALCI UM, SERUM OR PLASM A cL 100 mmol/ L 98-109 Not Available [address], [address], 03/13/2021 17:11:55 03/13/20 21 03/13/2021 BMP + IONIZ ED CALCI UM, SERUM OR PLASM A TCO2 27 mmol/ L 24- Not Available [address], [address], 03/13/2021 17:11:55 03/13/20 21 03/13/2021 BMP + IONIZ ED CALCI UM, SERUM OR PLASM A angap 16 mmol/ L 10- Not Available [address], [address], 03/13/2021 17:11:55 03/13/20 21 03/13/2021 BMP + IONIZ ED CALCI UM, SERUM OR PLASM A ica 1.23 mmol/ L 1.12-1 .32 Not Available [address], [address], 03/13/2021 17:11:55 03/13/20 21 03/13/2021 BMP + IONIZ ED CALCI UM, SERUM OR PLASM A HCT 39 %pcv 38-51 Not Available [address], [address], 03/13/2021 17:11:55 03/13/20 21 03/13/2021 BMP + IONIZ ED CALCI UM, SERUM OR PLASM A Hb 13.3 g/dL 12-17 Not Available [address], [address], 03/13/2021 17:11:55 03/14/20 21 03/15/2021 URINE CULTU RE specimen description URINE Not Available [facility] (Centralized Electronic Ordering - All Locations) Patient Can Go To The Location Of Their Choice, [id number] 03/16/2021 10:54:46 03/14/20 21 03/15/2021 URINE CULTU RE special requests NONE Not Available [facility] (Centralized Electronic Ordering - All Locations) Patient Can Go To The Location Of Their Choice, [id number] 03/16/2021 10:54:46 03/14/20 21 03/16/2021 URINE CULTU RE culture NO GROWTH Not Available [facility] (Centralized Electronic Ordering - All Locations) Patient Can Go To The Location Of Their Choice, [id number] 03/16/2021 10:54:46 03/14/20 21 03/16/2021 URINE CULTU RE report status FINAL 2021 Not Available [facility] (Centralized Electronic Ordering - All Locations) Patient Can Go To The Location Of Their Choice, [id number] 03/16/2021 10:54:46 03/15/20 XR, chest , 2 view No observ ation record ed. [address] [employer] ([employer]) [address] [place] [address], [address], 03/19/2021 00:28:10 Result Notes None recorded. Procedures Surgical History Date Name Laterality Status Provider Name and Address Organization Details Recorded Time 021 Venipuncture - DH completed ISAIAH BRAR [address], [place], [address], [place] [facility] 03/13/2021 17:46:25 Cholecystectomy completed Diego milton NP [address], [place], [address], [place] [facility] 03/03/2021 12:14:30 Imaging Results None recorded. Procedure Notes None recorded. Medical Equipment None Reported. Allergies Allergen ID Allergen Name Allergen Category Reaction Reaction Severity Criticality Documentation Date Start Date Code Code System Note Provider Name and Address Organization Details Recorded Time 210350 Plendil medicatio n Not available Not available Not available 03/03/2021 6 RxNorm Diego Kaminski NP [address], [place], [address], [place] [facility] 12:11:46 [id number] Zestril medicatio n Not available Not available Not available 03/03/2021 [address] 2 RxNorm Diego Kaminski NP [address], [place], [address], [place] [facility] 12:11:55 Medications Name Sig Start Date Stop Date Status Note LastModified by Organization Details LastModified Time losartan 50 mg tablet active Not Available Not Available No t Available benzonatate 200 mg capsule Take 1 capsule 3 times a day by oral route for 5 days. active Not Available Not Available No t Available prednisone 5 mg tablet active Not Available Not Available No t Available Synthroid 88 mcg tablet active Not Available Not Available N ot Available calcitriol 0.25 mcg capsule active Not Available Not Available Not Available ipratropium bromide 21 mcg (0.03 %) nasal spray active Not Available Not Available Not Available Ventolin HFA 90 mcg/actuatio n aerosol inhaler Inhale 2 puffs every 4 hours by inhalation route. active Not Available Not Available No t Available esomeprazole magnesium 20 mg capsule,violet yed release active Not Available Not Available Not Available ezetimibe 10 mg tablet active Not Available Not Available No t Available Vitals Date Recorded Heart rate Respiratory rate Body temperature Oxygen saturation Oxygen saturation in Arterial blood by Pulse oximetry Systolic And Diastolic Provider Name and Address Organization Details Last Updated DateTime 1 74 /min 22 /min 99.2 [degF] 95 % 95 % 120/58 mm[Hg] Not Available [facility] 12:15[facility]58 Date Recorded Oxygen saturation Oxygen saturation in Arterial blood by Pulse oximetry Body temperature Heart rate Respiratory rate Systolic And Diastolic Provider Name and Address Organization Details Last Updated DateTime 1 97 % 97 % 97.8 [degF] 69 /min 18 /min 136/82 mm[Hg] Not Available [facility] 17:07:31 Social History Question Answer Notes LastModified by Organizat ion Details LastModified Time Tobacco Smoking Status Former Smoker Diego Kaminski NP [address], [place], [address], [place] [facility] 03/03/2021 12:15:13 Do You Have An Advance Directive? No [email or web address] Information not available 03/03/2021 What Is Your Code Status? Full Code [email or web address] Information not available 03/03/2021 Within The Past 12 Months, Has It Happened That The Food You Bought Just Didn't Last And You Didn't Have Money To Get More. No [email or web address] Information not available 03/03/2021 Within The Past 12 Months, Have You Worried That Your Food Would Run Out Before You Got Money To Buy More. No [email or web address] Information not available 03/03/2021 Fall Risk: Do You Feel Unsteady When Standing Or Walking? Yes [email or web address] Information not available 03/03/2021 We Know That How And When People Interact With Friends And Family Can Be Very Different From Person To Person. How Often Do You Have The Opportunity To See Or Talk To People That You Care About And Feel Close To? (Ex: Talking To Friends On The Phone Or Visiting Friends Or Family Or Going To Baptism Or Club Meetings) 3 Or 4 Times Per Week [email or web address] Information not available 03/03/2021 Excessive Alcohol Or Drug Use No [email or web address] Information not available 03/03/2021 Does This Patient Have A PCP? Yes [email or web address] Information not available 03/03/2021 We Know From Many Of Our Patients That Covering All Of Their Costs Can Be Difficult At Times. This Can Cause Stress And Impact Health. In The Past Year, Have You Been Unable To Get Any Of The Following When It Was Really Needed? No [email or web address] Information not available 03/03/2021 What Is Your Housing Situation Today? I Have Housing [email or web address] Information not available 03/03/2021 Would You Like Help Connecting To Resources? None [email or web address] Information not available 03/03/2021 How Many Years Have You Smoked Tobacco? 20 [email or web address] Information not available 03/03/2021 Sex: Unknown Functional Status Question Answer Note LastModified by Organizat ion Details LastModified Time Do you use any illicit or recreational drugs? No [email or web address] Information not available 03/03/2021 Do you or have you ever used any other forms of tobacco or nicotine? No [email or web address] Information not available 03/03/2021 What is your level of alcohol consumption? None [email or web address] Information not available 03/03/2021 Mental Status None recorded. Family History Relationship Description Onset Age of this Age Resolved Age Notes LastModified by Organization Details LastModified Time Father Coronary arterioscler osis [email or web address] Not available 2020 12:48:43 Medical History Condition Response Diabetes Y Coronary Artery Disease N CHF N Parkinson's Disease N Cancer N Stroke N Dementia N Hypothyroidism Y COPD N Asthma N Depression N High Cholesterol Y Rheumatoid Arthritis N Pulmonary Embolism N Hypertension Y A-fib N Osteoporosis N Kidney Disease Y Gynecological HistoryNo gynecological history recorded. Obstetrics History GPAL:G 0 P 0 0 0 0 Past Encounters Encounter ID Performer Location Encounter Start Date Encounter Closed Date Diagnosis/Indication Diagnosis SNOMED-CT Code Diagnosis ICD10 Code Diagnosis IMO Codes Diagnosis Note [id number] Diego Kaminski NP [facility] [address] [place] [address] 03/03/2021 12:08:56 03/07/2021 12:56:27 Acute viral bronchitis 862920068 J20.8 [id number] ISAIAH BRAR [facility] [address] [place] [address] 03/13/2021 16:27:52 03/18/2021 09:56:03 Weakness present 639560564 M62.81 Polymyalgi a rheumatica 12133260 M35.3 Cough 98433101 R05.1 Exposure t o SARS-CoV-2 447134646 Z20.822 Injury of knee 746387477 S89.91XA History of hypothyroidism 250036052 Z86.39 [id number] Melva Qureshi NP [facility] [address] [place] [address] 03/14/2021 16:07:33 03/14/2021 16:24:47 Weakness present 098003739 M62.81 Chronic ki dney disease stage 3 314390776 N18.30 Health Concerns Section Related Observation LastModified by Organization Detai ls LastModified Time None Recorded Concern Status LastModified by Organization Details LastModified Time None Recorded Advance Directives Directive N: Payers Insurance Date Sequence Insurance Name Policy Number Policy Whitmore Covered Member ID Whitmore Member ID Guarantor Name 03/04/2021 1 MEDICARE [facility]: [employer] [facility] Shaniqua Cordova [id number] Shaniqua Cordova 03/18/2021 1 MEDICARE B-KS: [facility] [employer] Shaniqua Cordova [id number] Shaniqua Cordova 03/18/2021 2 [facility] - PLAN 1 (MEDICARE SUPPLEMENT) [id number] Shaniqua Cordova [id number] Shaniqua Cordova 03/04/2021 1 *SELF PAY* Shaniqua Cordova [id number] Shaniqua Cordova Notes Date Note Type Note Provider Name and Address Organization Details Recorded Time 03/03/2021 text/html COVID-19 Symptom s July 2019Reported by Patient Diego Kaminski NP [address] [place], [address], [place] [facility] 03/03/2021 14:00:28 03/13/2021 text/html 81 y/o F with PMH of HTN, HLD, DM, Hypothyroidism, CKD Stage 3-4, and Polymyalgia Rheumatica, known to but new to provider, is seeking further evaluation for generalized weakness and fatigue x 2 weeks. The patient was last seen by 10 days ago and the patient had negative flu and COVID-19 tests performed. Patient states that her cough has improved, but she feels like her weakness has worsened. She feels tired when she exerts herself. She states that today she took a shower and had to take a break afterwards because she was so tired. She has had a loss of appetite and has lost 12 lbs over the last 2 weeks. The patient denies any shortness of breath or chest pain. The patient is requesting to have an ESR and CRP run in order to see if this is a Polymyalgia Rheumatica exacerbation. The patient and daughter are also concerned that the patient is depressed due to losing her and both of her parents all in the same year. Patient reports having a mechanical fall today as she tripped over her slippers and landed directly on her right knee. She has since been walking with a limp and with her cane. 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
[2025-01-11 18:33] LABS: Hematocrit 37.9 % (37.0-47.0); Hemoglobin 12.1 g/dl (12.0-16.0); Imm Gran Abs Auto 0.08 X10*3/uL (0.00-0.03); Imm Gran Pct Auto 0.4 % (0.0-0.4); Lymphocytes Absolute Auto 1.0 X10*3/uL (1.2-4.9); Mean Corpuscular HGB Conc 31.9 g/dl (31.0-35.0); Mean Corpuscular Hemoglobin 30.3 pg (27.0-33.0); Mean Corpuscular Volume 94.8 fL (80.0-98.0); NRBC Abs Auto 0.000 X10*3/uL (0.0-0.012); NRBC Pct Auto 0.0 /100WBC (0.0-0.2); Platelet Count 341 X10*3/uL (160-400); Red Blood Count 4.00 X10*6/uL (4.20-5.50); White Blood Count 18.1 X10*3/uL (4.8-10.8)
== END 2025-01-11 14:11 | disposition home or self-care (01) ==
LOC: HO.HKASLDS 14:10
PROVIDERS: PCP Internal Medicine; Visit Provider Internal Medicine Rheumatology
DX: D72.829 Elevated white blood cell count, unspecified (principal); M85.80 Other specified disorders of bone density and structure, unspecified site; E55.9 Vitamin D deficiency, unspecified; Z79.899 Other long term (current) drug therapy
CPT/HCPCS: 36415; 82306; 85025; 85652; 86140